=== PATIENT | male | born 1935 | race Caucasian/White ===

== ENCOUNTER 2016-11-13 05:47 | Observation (INO) ==
[2016-11-13] MEDS ORDERED: Aspirin 81 MG TAB.CHEW PO ONE (06:02)
[2016-11-13] MEDS ORDERED: Nitroglycerin 0.4 MG TAB.SUBL SL ONE (06:02)
[2016-11-13 06:23] LABS: Basophils # 0.1 K/mcL (0.0-0.2); Basophils % 0.9 %; Eosinophils # 0.2 K/mcL (0.0-0.6); Eosinophils % 3.4 %; Hematocrit 48.6 % (37.5-50.1); Hemoglobin 16.3 g/dL (12.9-16.9); Immature Granulocytes % 0.4 % (0-4); Lymphocytes # 1.3 K/mcL (0.6-4.6); Lymphocytes % 19.3 %; Mean Corpuscular HGB Conc 33.5 g/dL (31.6-35.5); Mean Corpuscular Hemoglobin 30.1 pg (28.0-33.3); Mean Corpuscular Volume 89.7 fL (83.0-100.0); Monocytes # 0.7 K/mcL (0.0-1.3); Monocytes % 10.2 %; Neutrophils # 4.5 K/mcL (1.6-8.9); Platelet Count 187 K/mcL (140-400); Red Blood Count 5.42 M/mcL (4.19-5.50); Red Cell Distribution Width 12.2 % (11.5-14.5); Segmented Neutrophils % 65.8 %
[2016-11-13 06:30] LABS: INR 1.1; Prothrombin Time 11.5 Seconds (9.4-12.1)
[2016-11-13 06:33] LABS: Activated Partial Thrombo Time 31.3 Seconds (26.0-36.0)
[2016-11-13 06:40] LABS: BUN/Creatinine Ratio 15 (6-26); Blood Urea Nitrogen 17 mg/dL (8-26); Carbon Dioxide 24 mEq/L (19-29); Chloride 105 mEq/L (98-109); Glucose 117 mg/dL (70-99); Osmolality,Calculated 291 (280-300); Sodium 139 mEq/L (136-145); eGFR For African Americans > 60 (> 60); eGFR For Non-African Americans > 60 (> 60)
--- NOTE | 2016-11-13 06:46 | Emergency Department Note ---
Disposition Clinical Impression: Chest pain Qualifiers: Chest pain type: other chest pain Qualified Code(s): R07.89 - Other chest pain Disposition: Admitted As Inpatient Condition: Good Chest Pain HPI - General Chief Complaint: ED Arrhythmia/Palpitations Stated Complaint: "Poss. Heart Attack" Time Seen by Provider: 11/13/16 06:01 Source: patient Mode of arrival: private vehicle Limitations: no limitations Vital Signs Reviewed: Yes Nursing Notes Reviewed: Yes - History of Present Illness HPI Narrative: 81-year-old male history of hypertension, hyperlipidemia status post CABG in 2014 who presents to the ER with a chief complaint of chest pain. Patient reports that he started having chest pain at midnight tonight at rest. Says left-sided pain without radiation. Reported similar to previous instances. Patient denies shortness of breath, nausea, vomiting, diaphoresis. No recent illnesses. Denies a history of DVT or PE. Patient took sublingual nitroglycerin prior to arrival. He currently reports that his pain is better. Patient does follow with cardiology. No other complaints. Pt complaint: chest pain Onset (ago): hour(s) Time: 00:00 Duration: constant Onset: during rest Pain Location: left chest Severity: moderate Severity scale (1-10): 8 Quality: other Pain Radiation: none Improves with: nothing Worsens with: nothing Associated symptoms: Denies: nausea, vomiting, diaphoresis, dyspnea Treatments prior to arrival chest pain: none - Related Data On Oral Contraceptives: No Home Medications Medication Instructions Recorded Confirmed Aspirin 81 mg PO DAILY 04/29/15 11/13/16 Isosorbide MONOnitrate (24 HR) 60 mg PO DAILY 04/29/15 11/13/16 [Imdur] Ranitidine HCl [Zantac] 150 mg PO BID 04/29/15 11/13/16 Simvastatin [Zocor] 20 mg PO HS 04/29/15 11/13/16 Amlodipine [Norvasc] 5 mg PO DAILY 11/13/16 11/13/16 CloNIDine HCl 0.1 mg PO DAILY 11/13/16 11/13/16 Lisinopril [Zestril] 20 mg PO DAILY 11/13/16 11/13/16 Metoprolol XL (24 HR) Succ [Toprol 12.5 mg PO DAILY 11/13/16 11/13/16 XL] Mirtazapine 7.5 mg PO HS 11/13/16 11/13/16 Nitroglycerin [Nitrostat] 0.4 mg SL AD PRN 11/13/16 11/13/16 Sertraline [Zoloft] 50 mg PO DAILY 11/13/16 11/13/16 Allergies Allergy/AdvReac Type Severity Reaction Status Date / Time Penicillins [PCN] AdvReac See Verified 11/13/16 05:53 Comments All systems ED: reviewed and negative except as stated. Constitutional: Denies: fever Cardiovascular: Reports: chest pain. Denies: palpitations, dyspnea on exertion Respiratory: Denies: cough, dyspnea, wheezes Gastrointestinal: Denies: abdominal pain, nausea, vomiting, diarrhea Musculoskeletal: Denies: back pain, neck pain Chest Pain PMH - Past Medical History Medical history: Reports: hyperlipidemia, hypertension, myocardial infarction Surgical history: Reports: other Psychiatric history: Reports: no psych history - Social History Smoking Status: Never smoker Alcohol use: Reports: none Drug use: Reports: none Physical Exam - General Limitations: no limitations General appearance: alert, in no apparent distress - Head Head exam: atraumatic, normocephalic, normal inspection - Eye Eye exam: Present: normal appearance, EOMI - ENT ENT exam: normal exam - Neck Neck exam: Present: normal inspection - Chest Chest inspection: Present: normal inspection, symmetric chest wall rise - Respiratory Respiratory exam: Present: normal lung sounds bilaterally - Cardiovascular Cardiovascular exam: Present: regular rate, normal rhythm, normal heart sounds - Abdominal Exam Abdominal exam: Present: soft, Non-Tender. Absent: tenderness - Extremities Exam Extremities exam: Present: normal inspection, full ROM - Expanded Upper Extremity Exam Shoulder exam: Present: normal inspection, full ROM Arm exam: Present: normal inspection, full ROM Elbow exam: Present: normal inspection, full ROM Forearm/Wrist exam: Present: normal inspection, full ROM Hand exam: Present: normal inspection, full ROM - Expanded Lower Extremity Exam Hip/Pelvis exam: Present: normal inspection, full ROM Upper leg exam: Present: normal inspection, full ROM Knee exam: Present: normal inspection, full ROM Lower leg exam: Present: normal inspection, full ROM Ankle exam: Present: normal inspection, full ROM Foot/toe exam: Present: normal inspection, full ROM - Neurological Exam Neurological exam: Present: alert - Psychiatric Psychiatric exam: Present: normal affect, normal mood - Skin Skin exam: Present: warm, dry, intact, normal color Course Course Narrative: Patient seen and examined. Vital signs reviewed. He reports his chest pain has improved. Patient received sublingual nitroglycerin prior to arrival. Patient provided aspirin here. We will check an EKG, chest x-ray as well as labs including troponin. Vital Signs Temperature 97.6 F 11/13/16 05:48 Pulse Rate 70 11/13/16 05:48 Respiratory Rate 20 11/13/16 05:48 Blood Pressure 161/83 11/13/16 05:48 O2 Sat by Pulse Oximetry 97 11/13/16 05:48 Temperature 98.0 F 11/14/16 04:10 Pulse Rate 81 11/14/16 04:10 Respiratory Rate 16 11/14/16 04:10 Blood Pressure 127/80 11/14/16 04:10 O2 Sat by Pulse Oximetry 96 11/14/16 04:10 Oxygen Delivery Oxygen Delivery Room Air Chest Pain - MDM Narrative Medical decision making narrative: 81-year-old male presents to the ER due to chest pain. Started around midnight. History of multiple comorbidities. Last stress test was in 2015 which did demonstrate a small sized, mild to moderate intensity reversible perfusion defect in the basal-mid inferior wall consistent with myocardial ischemia. Patient's pain improved after nitroglycerin. EKG shows no ischemic findings. Chest x-ray unremarkable. Patient admitted to the hospital in stable condition. - Lab Data Lab results reviewed: Yes I reviewed the patient's lab results. Result diagrams: 11/14/16 01:02 11/14/16 01:02 Lab Results 11/13/16 11/13/16 11/13/16 Range/Units 06:14 06:14 06:14 WBC 6.8 (4.3-11.1) K/mcL RBC 5.42 (4.19-5.50) M/mcL Hgb 16.3 (12.9-16.9) g/dL Hct 48.6 (37.5-50.1) % MCV 89.7 (83.0-100.0) fL MCH 30.1 (28.0-33.3) pg MCHC 33.5 (31.6-35.5) g/dL RDW 12.2 (11.5-14.5) % Plt Count 187 (140-400) K/mcL MPV 11.0 (9.4-12.4) fL Immature Gran % 0.4 (0-4) % Seg Neutrophils % 65.8 % Lymphocytes % 19.3 % Monocytes % 10.2 % Eosinophils % 3.4 % Basophils % 0.9 % Neutrophils # 4.5 (1.6-8.9) K/mcL Lymphocytes # 1.3 (0.6-4.6) K/mcL Monocytes # 0.7 (0.0-1.3) K/mcL Eosinophils # 0.2 (0.0-0.6) K/mcL Basophils # 0.1 (0.0-0.2) K/mcL PT 11.5 (9.4-12.1) Seconds INR 1.1 APTT 31.3 (26.0-36.0) Seconds Sodium (136-145) mEq/L Potassium (3.5-4.5) mEq/L Chloride (98-109) mEq/L Carbon Dioxide (19-29) mEq/L BUN (8-26) mg/dL Creatinine (0.72-1.25) mg/dL Est GFR ( Amer) (> 60) Est GFR (Non-Af Amer) (> 60) BUN/Creatinine Ratio (6-26) Glucose (70-99) mg/dL Calculated Osmolality (280-300) Calcium (8.6-10.8) mg/dL Troponin I (0-0.03) ng/mL B-Natriuretic Peptide 76 (0-100) pg/mL 11/13/16 11/13/16 11/13/16 Range/Units 06:14 06:14 12:30 WBC (4.3-11.1) K/mcL RBC (4.19-5.50) M/mcL Hgb (12.9-16.9) g/dL Hct (37.5-50.1) % MCV (83.0-100.0) fL MCH (28.0-33.3) pg MCHC (31.6-35.5) g/dL RDW (11.5-14.5) % Plt Count (140-400) K/mcL MPV (9.4-12.4) fL Immature Gran % (0-4) % Seg Neutrophils % % Lymphocytes % % Monocytes % % Eosinophils % % Basophils % % Neutrophils # (1.6-8.9) K/mcL Lymphocytes # (0.6-4.6) K/mcL Monocytes # (0.0-1.3) K/mcL Eosinophils # (0.0-0.6) K/mcL Basophils # (0.0-0.2) K/mcL PT (9.4-12.1) Seconds INR APTT (26.0-36.0) Seconds Sodium 139 (136-145) mEq/L Potassium 4.0 (3.5-4.5) mEq/L Chloride 105 (98-109) mEq/L Carbon Dioxide 24 (19-29) mEq/L BUN 17 (8-26) mg/dL Creatinine 1.12 (0.72-1.25) mg/dL Est GFR ( Amer) > 60 (> 60) Est GFR (Non-Af Amer) > 60 (> 60) BUN/Creatinine Ratio 15 (6-26) Glucose 117 H (70-99) mg/dL Calculated Osmolality 291 (280-300) Calcium 9.0 (8.6-10.8) mg/dL Troponin I 0.01 0.00 (0-0.03) ng/mL B-Natriuretic Peptide (0-100) pg/mL - Radiology Data Radiology results reviewed: Yes I reviewed the patient's radiology results. Chest X-Ray 11/13/16 06:02 IMPRESSION: Negative portable chest. D/ / Zachary Morley MD / Zachary Morley MD Interpreting Provider: Zachary Morley MD - EKG Data EKG attestation: Yes I reviewed and interpreted this EKG. EKG results narrative: EKG demonstrates normal sinus rhythm with a rate of 70 bpm. Normal axis. SC interval 168 QRS duration [address] elevations or depressions. No acute ischemic findings. Heart Score - Score History: Moderately Suspicious EKG: Normal Age: Greater than 65 Risk Factors: Equal/Greater than 3 risk factor or history of atherosclerotic disease Troponin: Less than normal limit HEART Score Total: 5 S.B.A.R. - S.B.A.R. Situation: Demographics, MOA Background: Presenting Complaint, Relevant PMH, Meds, & Allergies Assessment: Vital Signs, Course and respsone to treatment, Exam Concerns, Patient/Family Expectation, Pertinant Lab Results, Outstanding Labs Recommendation: Barrier(s) to disposition, Recommendation based on pending studies, treatments, or consults Leticia Report Given to: Dr. Javier Kelly Repor Time: 07:32 Attestation Statement - Attestation Attestation: I personally interviewed and examined this patient and my medical decision- making was reviewed with the ED Resident Physician, Dr. Pineda. I agree with the documented findings, disposition and treatment plan as described in the documentation. PT with hx CAD, here with CP. Agree with physical exam findings, and plan for admission.
[2016-11-13] MEDS ORDERED: Ondansetron 4 MG/2 ML VIAL IVP PRN (10:57)
[2016-11-13] MEDS ORDERED: Naloxone 0.4 MG/ML INJ IVP PRN (10:57)
[2016-11-13] MEDS ORDERED: Nitroglycerin 0.4 MG TAB.SUBL SL PRN (10:59)
--- NOTE | 2016-11-13 11:07 | Internal Med History&Physical ---
Date of Encounter: 11/13/16 Time of Encounter: 11:01 Assessment and Plan (1) Chest pain Current visit: Yes Status: Acute Typical chest pain in setting of patient with known CAD and abnormal stress test. Patient now chest pain free. - Cardiology consulted for assistance - Trend troponin - Monitor on telemetry - ASA - Keep patient chest pain free with nitro and morphine PRN - Echo Qualifiers: Chest pain type: other chest pain Qualified Code(s): R07.89 - Other chest pain; R07.8 - Other chest pain (2) Hypertension Current visit: Yes Status: Chronic BP stable in ER - Continue home medications Qualifiers: Hypertension type: essential hypertension Qualified Code(s): I10 - Essential (primary) hypertension (3) Syncope Current visit: Yes Status: Acute Sounds orthostatic based on patient report, and is longstanding issue. Will check orthostatic vitals once patient on medicine floor. - Monitoring on telemetry Qualifiers: Syncope type: unspecified Qualified Code(s): R55 - Syncope and collapse Internal Medicine - H&P: HPI Chief complaint: Chest pain Admitted From: Emergency Dept Plans for Post Hospital Care: Home History of present illness: Mr. Mcmullen is a 81 year old male with history of CAD s/p CABG in 2012, HTN, HLD who presented to the ER this morning with complaint of left sided anterior chest pain which developed around 2330 yesterday evening while he was watching television. He states the pain was nonradiating, pressure-like, 10/10 at worst. He has had similar pain in the past which typically resolves after taking 1-2 SL nitro. Last night, however, he took 3 SL nitro and the pain persisted so he presented to the ER for further evaluation. In the ER he was given ASA and his pain did eventually resolve without further intervention. The pain lasted ~60 minutes total. He had no associated symptoms with the pain. His family states that he seems to still have intermittent chest pain while in the ER. When I ask him about this he says he is now completely pain free. He has not had any recent illnesses, fever or chills. He has not had lower extremity edema. He was admitted one year ago and underwent stress test which showed small area of reversible ischemia and that time he elected for medical management and he did not have LHC. Pain was reasonably controlled with occasional nitro until last night. He did have an episode of syncope while sitting at latter-day 11/11 - he states this happens occasionally secondary to hypotension, and he did not have any chest pain associated with the episode - he felt lightheaded and his vision got dark and then he lost consciousness but did not fall. Past Med Surg Social Fam HX - Past Medical History Medical history: coronary artery disease (s/p CABG 2012), hyperlipidemia, hypertension, myocardial infarction Psychiatric history: no psych history - Past Surgical History Surgical History: other - Social History Smoking Status: Never smoker Smokeless Tobacco Status: No Alcohol use: none Drug use: none Additional social history: Lives at home with family - Family History Mother Living Status: Hx Family Cardiac Disorders: No Hx Family Respiratory Disorders: No Hx Family Cancer: No Hx Family GI Disorders: No Hx Family Endocrine Disorder: No Hx Family Neuromuscular Disorders: No Hx Family Neurologic Disorders: No Hx Family HEENT Disorders: No Hx Family Autoimmune Disorders: No Internal Medicine - H&P: Meds Aspirin 81 mg PO DAILY 04/29/15 [History] Isosorbide MONOnitrate (24 HR) [Imdur] 60 mg PO DAILY 04/29/15 [History] Ranitidine HCl [Zantac] 150 mg PO BID 04/29/15 [History] Simvastatin [Zocor] 20 mg PO HS 04/29/15 [History] Amlodipine [Norvasc] 5 mg PO DAILY 11/13/16 [History] CloNIDine HCl 0.1 mg PO DAILY 11/13/16 [History] Lisinopril [Zestril] 20 mg PO DAILY 11/13/16 [History] Metoprolol XL (24 HR) Succ [Toprol XL] 12.5 mg PO DAILY 11/13/16 [History] Mirtazapine 7.5 mg PO HS 11/13/16 [History] Nitroglycerin [Nitrostat] 0.4 mg SL AD PRN 11/13/16 [History] Sertraline [Zoloft] 50 mg PO DAILY 11/13/16 [History] Allergies Penicillins [PCN] Adverse Reaction (Verified 11/13/16 05:53) See Comments All Systems PM: A 10-system review of systems was performed and is negative for pertinent findings except as documented above in the HPI. - Constitutional Vitals: Temp Pulse Resp BP Pulse Ox 97.6 F 64 11 160/83 94 L 11/13/16 05:48 11/13/16 10:45 11/13/16 10:45 11/13/16 10:45 11/13/16 10:45 General appearance: Present: A&O X 3 Exam: Patient in no acute distress, resting comfortably in bed - Head Head exam: Present: atraumatic - Eye Eye exam: Present: EOMI, sclera anicteric - ENT ENT exam: Present: mucous membranes moist - Neck Neck exam general surgery: Present: supple - Respiratory Respiratory exam: Present: CTAB - Cardiovascular Cardiovascular exam: Present: distant heart sounds, RRR. Absent: diastolic murmur, systolic murmur - GI/Abdominal GI/Abdominal exam: Present: normal bowel sounds, soft. Absent: distended, tenderness - Extremities Exam Extremities exam: Absent: pedal edema - Neurological Exam Neurological exam: Present: no focal deficits - Skin Skin exam: Absent: rash Internal Med - H&P Results - Labs CBC & Chem 7: 11/13/16 06:14 11/13/16 06:14 Labs: Short CBC 11/13/16 Range/Units 06:14 WBC 6.8 (4.3-11.1) K/mcL Hgb 16.3 (12.9-16.9) g/dL Hct 48.6 (37.5-50.1) % Plt Count 187 (140-400) K/mcL Neutrophils # 4.5 (1.6-8.9) K/mcL BMP 11/13/16 06:14 Sodium 139 Potassium 4.0 Chloride 105 Carbon Dioxide 24 BUN 17 Creatinine 1.12 Glucose 117 H Calcium 9.0 Cardiac Enzymes 11/13/16 Range/Units 06:14 Troponin I 0.01 (0-0.03) ng/mL - Impressions ITS Impressions Chest X-Ray 11/13/16 06:02 IMPRESSION: Negative portable chest. D/ / Zachary Morley MD / Zachary Morley MD Interpreting Provider: Zachary Morley MD
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
[2016-11-13] MEDS ORDERED: cloNIDine HCl 0.1 MG TABLET PO ONE (15:34)
[2016-11-13] MEDS ORDERED: Metoprolol XL (24 HR) Succ 25 MG TAB.ER.24H PO SCH (15:45)
--- NOTE | 2016-11-13 15:49 | Electrocardiograph Report ---
[address] [address] Test Date: 2016-11-13 Pat Name: Inocencio Mcmullen Department: 102 Room: 3B44 Gender: M Cane Weigher: Christine : 1935 Requested By: Kayla Herrera Order Number: [id number] Reading MD: Maribel Lafleur Measurements Intervals [place] Rate: 70 P: 38 [place]: 168 QRS: 50 QRSD: 83 T: 75 QT: 409 QTc: 431 Interpretive Statements SINUS RHYTHM Electronically Signed On 11-13-2016 15:47:52 EDT by Maribel Lafleur
[2016-11-13] MEDS: Lisinopril 20 MG TABLET PO SCH (16:09)
[2016-11-13] MEDS: Mirtazapine 15 MG TABLET PO SCH (20:23)
[2016-11-13] MEDS: Famotidine 20 MG TABLET PO SCH (20:25)
[2016-11-14 01:35] LABS: Basophils # 0.1 K/mcL (0.0-0.2); Basophils % 0.9 %; Eosinophils # 0.2 K/mcL (0.0-0.6); Eosinophils % 3.1 %; Hematocrit 46.1 % (37.5-50.1); Hemoglobin 15.6 g/dL (12.9-16.9); Immature Granulocytes % 0.2 % (0-4); Immature Platelets 7.7 % (1.1-6.1); Lymphocytes # 1.2 K/mcL (0.6-4.6); Lymphocytes % 18.5 %; Mean Corpuscular HGB Conc 33.8 g/dL (31.6-35.5); Mean Corpuscular Hemoglobin 30.1 pg (28.0-33.3); Monocytes # 0.7 K/mcL (0.0-1.3); Monocytes % 11.1 %; Neutrophils # 4.2 K/mcL (1.6-8.9); Platelet Count 176 K/mcL (140-400); Red Blood Count 5.18 M/mcL (4.19-5.50); Red Cell Distribution Width 12.1 % (11.5-14.5); Segmented Neutrophils % 66.2 %
[2016-11-14 02:06] LABS: BUN/Creatinine Ratio 16 (6-26); Blood Urea Nitrogen 16 mg/dL (8-26); Calcium 9.5 mg/dL (8.6-10.8); Carbon Dioxide 22 mEq/L (19-29); Chloride 107 mEq/L (98-109); Chol/HDL Ratio 4.1 (0-4.9); Cholesterol 142 mg/dL (< 200); Glucose 112 mg/dL (70-99); HDL Cholesterol 35 mg/dL (40-59); LDL Cholesterol,Calculated 85 mg/dL (0-99); Osmolality,Calculated 290 (280-300); Potassium 3.9 mEq/L (3.5-4.5); Sodium 139 mEq/L (136-145); Triglycerides 111 mg/dL (< 150); eGFR For African Americans > 60 (> 60); eGFR For Non-African Americans > 60 (> 60)
[2016-11-14] MEDS ORDERED: amLODIPine 5 MG TABLET PO SCH (09:00)
[2016-11-14] MEDS ORDERED: 0.9 % Sodium Chloride 1,000 ML ONE (09:37)
[2016-11-14] MEDS ORDERED: Heparin 1,000 UNITS/500 mL NS 500 ML ONE (09:38)
[2016-11-14] MEDS ORDERED: *HR* Heparin 10,000 UNIT/10 ML VIAL ONE (09:38)
[2016-11-14] MEDS ORDERED: Nitroglycerin 1,000 MCG/10 ML VIAL IV ONE (09:39)
[2016-11-14] MEDS ORDERED: *HR* FentaNYL (PF) 100 MCG/2 ML VIAL ONE (09:39)
[2016-11-14] MEDS ORDERED: *HR* Midazolam HCl 2 MG/2 ML VIAL ONE (09:39)
[2016-11-14] MEDS: Metoprolol XL (24 HR) Succ 25 MG TAB.ER.24H PO SCH (09:48)
[2016-11-14] MEDS: Famotidine 20 MG TABLET PO SCH ×2 (09:49→21:28)
[2016-11-14] MEDS: cloNIDine HCl 0.1 MG TABLET PO SCH (09:49)
[2016-11-14] MEDS: Lisinopril 20 MG TABLET PO SCH ×2 (09:49→16:18)
[2016-11-14] MEDS: Isosorbide MONOnitrate (24 HR) 60 MG TAB.ER.24H PO SCH (09:49)
[2016-11-14] MEDS: Aspirin 81 MG TAB.CHEW PO SCH (09:49)
--- NOTE | 2016-11-14 10:30 | Pre-Sedation Evaluation ---
Pre-sedation evaluation - Pre-sedation checklist Date of procedure: 11/14/16 Procedure: left heart cath Recent Vitals: Last Vital Signs Temp 97.9 F 11/14/16 06:59 Pulse 65 11/14/16 06:59 Resp 16 11/14/16 06:59 BP 147/82 11/14/16 06:59 Pulse Ox 95 11/14/16 06:59 H&P (including ROS) documented in medical record: Yes Previous reaction to sedatives/anesthetics: No Dietary Status: NPO after Midnight Dentition: No loose teeth or bridges ASA Classification *see protocol: CLASS II-Mild systemic disease Plan of Care: Pt appropriate candidate for procedure/moderate/conscious sedation , Risks/benefits of procedure/sedation discussed w/ patient/family
[2016-11-14] MEDS ORDERED: Tirofiban 5 MG/100ML 5 MG/100 ML BAG IV ONE (11:31)
[2016-11-14] MEDS ORDERED: *HR* Ticagrelor 90 MG TABLET ONE (11:38)
--- NOTE | 2016-11-14 13:36 | ECHO - Doppler Report ---
Echocardiogram Name: Inocencio Mcmullen Date of Study: 11/13/2016 Date: 1935 Ht: 67.0 in Medical Record#: [id number] Age: 81 Wt: 178.0 lb Gender: Male BSA: 1.92 Order #: [id number] Location: [facility] Room #: 3B44 Reading Physician: Osmin Lincoln DO, SAMMIE, JULISSA [place] [employer] Worker: Chula Hogan Ordering Physician: Renata Alamo MD Primary Physician: Rebekah Ogden CNP Indications: Chest pain Impressions: LVEF 60%. Normal LV chamber size, wall thickness and function. Mild left ventricular diastolic dysfunction. Atypical septal motion consistent with post-operative status. Normal right ventricular structure and function. No evidence of pulmonary hypertension. No significant valvular dysfunction. Left Ventricular Wall Motion: Rest Echo Findings All wall segments showed normal motion. Findings: Study Quality * Technically sub-optimal due to poor echocardiographic windows. ECG Findings * Normal sinus rhythm. Left Ventricle * LVEF 60%. * Normal LV chamber size, wall thickness and function. * Mild left ventricular diastolic dysfunction. * Atypical septal motion consistent with post-operative status. Right Ventricle * Normal right ventricular structure and function. Left Atrium * Mild to moderately dilated left atrium. Right Atrium * Normal right atrial size. Interatrial Septum * Interatrial septum not well evaluated. Aortic Valve * Aortic valve not well visualized. * No aortic regurgitation. * No aortic stenosis. Mitral Valve * Normal mitral valve structure and function. * No mitral regurgitation. * No mitral stenosis. Tricuspid Valve * Normal tricuspid valve structure and function. * Trace tricuspid regurgitation. * No evidence of pulmonary hypertension. Pulmonic Valve * Pulmonic valve is not well visualized. * No pulmonic regurgitation. Aorta * Normally sized aortic root. Pericardium * The pericardium appears normal. IVC * The IVC is not well evaluated. Pulmonary Artery * Pulmonary artery not well visualized. 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 Measurements: BP: 156/ 79 2D Normal Values RVIDd: 3.40 cm <2.7 cm IVSd: 1.00 cm 0.6 - 1.0 cm LVIDd: 4.20 cm 3.7 - 5.6 cm LVPWd: 1.00 cm 0.6 - 1.1 cm LVIDs: 3.00 cm 1.5 - 3.6 cm AO: 2.90 cm < 4.0 cm LA: 4.30 cm 2.0 - 4.0cm %FS: 28.60 cm >25 % LA volume: 64 Mitral Valve Peak E:.74 m/sec Peak A:.99 m/sec E/A Ratio:0.7 Peak E' Lat Mike:7.99 cm/s Peak E' Med Mike:5.07 cm/s E/E' Lat Ratio:9.2 E/E' Med Ratio:14.5 Tricuspid Valve TV Regurg Peak Grad: 25.00mmHg TV Regurg Peak Mike: 2.50m/sec Updated by Osmin Lincoln DO, FACTariq, PADMINI, JULISSA on 11/14/2016 1:29:24 PM electronically signed on 11/14/2016 1:29:50 PM with status of Final Wall Motion Feldman: 1=Normal, 2=Hypokinesis, 3=Akinesis, 4=Dyskinesis, 5=Aneurysmal, 6=Hyperkinetic, X=Not Visualized (Blank)=Missing
--- NOTE | 2016-11-14 13:51 | Internal Med Progress Note ---
Date of Encounter: 11/14/16 Time of Encounter: 10:30 - Assessment and plan (1) Unstable angina Current Visit: Yes Status: Acute Assessment and plan: Patient has denied chest pain or shortness of breath since admission. Seen and evaluated by cardiology who have chosen to proceed with a left heart catheter later today. Echocardiogram unremarkable with preserved ejection fraction. Echocardiogram impressions: LVEF 60%. Normal LV chamber size, wall thickness and function. Mild left ventricular diastolic dysfunction. Atypical septal motion consistent with postoperative status. Normal rectal ventricular structure and function. No evidence of pulmonary hypertension. No significant valvular dysfunction. (2) Chest pain Current Visit: No Status: Resolved (3) CAD (coronary artery disease) Current Visit: Yes Status: Chronic Qualifiers: Coronary Disease-Associated Artery/Lesion type: bypass graft [place] vs. transplanted heart: [place] heart Associated angina: with unstable angina Qualified Code(s): I25.700 - Atherosclerosis of coronary artery bypass graft(s) , unspecified, with unstable angina pectoris (4) Hypertension Current Visit: Yes Status: Chronic Assessment and plan: Controlled, home medications of amlodipine 5 mg, metoprolol XL 12.5 mg daily, clonidine 0.1 mg daily, lisinopril 20 mg daily, and Imdur 60 mg daily have been continued Qualifiers: Hypertension type: essential hypertension Qualified Code(s): I10 - Essential (primary) hypertension (5) Syncope Current Visit: Yes Status: Chronic Assessment and plan: Patient saying this is a chronic issue for him. He is currently asymptomatic and denies dizziness or lightheadedness with position changes. We will check orthostatic vital signs. Qualifiers: Syncope type: unspecified Qualified Code(s): R55 - Syncope and collapse - Subjective Interval history: Patient seen and examined. On examination, patient sitting upright in bed conversing with his family. He denies pain or shortness of breath at this time. He denies questions or concerns regarding his upcoming heart catheter. - Constitutional Vitals: Temp Pulse Resp BP Pulse Ox 97.9 F 65 16 147/82 95 11/14/16 06:59 11/14/16 06:59 11/14/16 06:59 11/14/16 06:59 11/14/16 06:59 General appearance: Present: A&O X 3, pleasant, no acute distress, answers questions appropriately - Head Head exam: Present: atraumatic, normocephalic - Eye Eye exam: Present: PERRL, conjuntiva pink, sclera anicteric Pupils: Present: PERRL - Neck Neck exam general surgery: Present: supple, trachea midline. Absent: lymphadenopathy - Respiratory Respiratory exam: Present: CTAB. Absent: accessory muscle use, rales, respiratory distress, rhonchi, wheezes - Cardiovascular Cardiovascular exam: Present: RRR, +S1, +S2. Absent: diastolic murmur, gallop, rubs, systolic murmur - GI/Abdominal GI/Abdominal exam: Present: normal bowel sounds, soft, no peritoneal signs. Absent: distended, tenderness - Extremities Exam Extremities exam: Present: warm, radial pulses palpable and symetrical. Absent : calf tenderness, cyanotic, pedal edema - Neurological Exam Neurological exam: Present: alert, CN II-XII intact, oriented X3, no focal deficits, strengths equal and symetr throughout. Absent: pronater drift, facial droop, speech deficit - Skin Skin exam: Present: dry, intact, normal color, warm Internal Medicine: Result - Labs CBC & Chem 7: 11/14/16 01:02 11/14/16 01:02 Labs: Short CBC 11/14/16 Range/Units 01:02 WBC 6.4 (4.3-11.1) K/mcL Hgb 15.6 (12.9-16.9) g/dL Hct 46.1 (37.5-50.1) % Plt Count 176 (140-400) K/mcL Neutrophils # 4.2 (1.6-8.9) K/mcL BMP 11/14/16 01:02 Sodium 139 Potassium 3.9 Chloride 107 Carbon Dioxide 22 BUN 16 Creatinine 1.00 Glucose 112 H Calcium 9.5 Cardiac Enzymes 11/13/16 11/14/16 Range/Units 18:16 01:02 Troponin I 0.01 0.00 (0-0.03) ng/mL - ABG Interpretation ABG results: PT/INR, D-dimer PT 11.5 Seconds (9.4-12.1) 11/13/16 06:14 Consult Discharge Plan - Plan Referrals: Alin,Rebekah Ward CNP [Primary Care Provider] - 11/20/16 4:15 pm
[2016-11-14] MEDS ORDERED: *HR* Morphine 2 MG/ML SYRINGE ONE (13:52)
[2016-11-14] MEDS: *HR* Morphine 2 MG/ML SYRINGE IVP PRN ×2 (13:55→21:36)
--- NOTE | 2016-11-14 15:44 | Invasive Diagnostic Lab Proc ---
Name: Inocencio Mcmullen Date of Study: 11/14/2016 Date: 1935 Ht: 66.9in Medical Record#: [id number] Age: 81 Wt: 176.37lb Gender: Male BSA: 1.91 Order #: [id number] BMI: 27.71 Physicians Procedure Physician: Anjel Flores MD, [facility] Referring MD: Referring MD: Staff Name Position Time In FelixNajma RN Appointment Clerk 10:31 AM Vicenta Ellis RT (R) Monitor 10:31 AM Emely Daniel RT (R) Scrub 10:31 AM Indications Indication Unstable Angina Procedures Performed Procedure L HRT ART/GRFT ANGIO PRQ CARD BM STENT W/ANGIO 1 VSL Pre-Procedure Checklist Informed consent is complete signed and on chart. H\\T\\P is on chart. ID band is on and ID verified with patient. Patient NPO for procedure The procedure was described for the patient and questions were answered. Blood Pressure: 147/82 ECG is on chart. Plan of Care Patient will tolerate the procedure without complications. Adequate level of comfort will be maintained. Hemodynamics will remain stable Patient will recover from procedure without complications. Respiratory function will be maintained. Cardiac rhythm will remain stable. Patient temperature will be maintained. Patient and/or family have verbalized understanding of the procedure. Patient Education Chief Complaint/Reason for Test: Cardiac Cath Developmental Category: Geriatric (65+ years) Developmentally Appropriate for Age: Yes Learning Barriers: None Education Needs: Procedure Education Method: Verbal Information Taught: Cardiac Cath Educational Evaluation: Able to repeat information Intravenous Access Time IV Size Location DC'd Fluid/Drip Rate Units RN 10:37 AM 20g 1 1/" Patent On Arrival Rt Arm 0.9NaCl 25 ml/hr Allergies Penicillin PCN Penicillins Vital Signs Time BP (mmHg) HR (bpm) O2 Sat. RR (bpm) LOC 10:37 AM 147 / 82 65 96 % 16 5 = Fully awake and oriented or at pre-proc level 10:32 AM / % 4 = Oriented but drowsy 10:32 AM / % 4 = Oriented but drowsy 11:20 AM / % 4 = Oriented but drowsy 10:32 AM 185 / 97 64 100 % 13 10:36 AM 181 / 91 65 99 % 13 10:41 AM 142 / 75 63 95 % 25 10:46 AM 154 / 91 71 97 % 16 10:51 AM 164 / 81 72 97 % 16 10:56 AM 154 / 81 75 94 % 16 11:01 AM 153 / 68 69 96 % 17 11:06 AM 137 / 74 70 97 % 15 11:11 AM 174 / 81 77 98 % 15 11:16 AM 174 / 88 72 97 % 16 11:22 AM 155 / 85 73 97 % 15 11:26 AM 169 / 90 75 97 % 13 11:31 AM 159 / 85 75 97 % 22 11:36 AM 152 / 81 69 95 % 24 11:41 AM 126 / 70 68 94 % 15 11:46 AM 138 / 74 64 97 % 12 12:10 PM 120 / 68 65 93 % 10 5 = Fully awake and oriented or at pre-proc level 12:35 PM 118 / 67 63 94 % 18 5 = Fully awake and oriented or at pre-proc level 12:45 PM 123 / 68 59 93 % 16 4 = Oriented but drowsy 01:00 PM 126 / 72 64 93 % 16 5 = Fully awake and oriented or at pre-proc level 01:14 PM 127 / 76 63 94 % 16 4 = Oriented but drowsy 01:32 PM 119 / 71 61 96 % 15 4 = Oriented but drowsy 01:45 PM 125 / 74 63 95 % 18 5 = Fully awake and oriented or at pre-proc level 02:24 PM 125 / 85 65 98 % 18 5 = Fully awake and oriented or at pre-proc level 02:35 PM 140 / 85 64 98 % 18 5 = Fully awake and oriented or at pre-proc level 02:50 PM 131 / 87 65 97 % 18 5 = Fully awake and oriented or at pre-proc level Procedural Medications Time Medication Dose Units Method Given By 10:31 AM Versed 2 mg Intravenous Najma Washington RN 10:31 AM Fentanyl 50 mcg Intravenous Najma Washington RN 10:32 AM Oxygen 2 L/min nasal cannula Vicenta Ellis RT (R) 10:42 AM Lidocaine 2% 20 ml Subcutaneous Anjel Flores MD, FACC 11:03 AM Heparin 4000 units Intravenous Najma Washington RN 11:31 AM Aggrastat Bolus: 42 ml Intravenous Najma [place] RN 11:33 AM Aggrastat 5mg/100ml 15 ml Intravenous Najma Washington RN 11:37 AM Nitroglycerin 200 mcg Intracoronary Anjel Flores MD 11:56 AM Brilinta 180 mg Orally Najma Washington RN ASA Classification: CLASS II- Mild systemic disease (i.e. well-controlled diabetes, hypertension, asthma, cigarette smoking) Amaya Score Preprocedure Postprocedure Activity 2- Moves 4 extremities sustained head lift Activity 2- Moves 4 extremities sustained head lift Circulation 2- SBP +/= 20 points of pre-anesthetic level Circulation 2- SBP +/= 20 points of pre-anesthetic level Consciousness 2- Awake and alert oriented x 3 Consciousness 2- Awake and alert oriented x 3 O2 Saturation 2- Able to maintain O2 satruation of 92% on room air O2 Saturation 2- Able to maintain O2 satruation of 92% on room air Respiratory 2- Able to deep breathe and cough well Respiratory 2- Able to deep breathe and cough well Total Score 10 Total Score 10 Contrast Agent: Isovue Diagnostic Contrast: 146 ml Total Contrast: 146 ml Fluoro Dose: 1791 mGy Activated Clotting Time Time Seconds to Clot 11:35 AM 304 01:08 PM 197 01:44 PM 166 Procedure Log Time Note Enter By 10:30 AM CathStat 10:30 AM Vitals capture started with the following parameters, Patient=Adult, Interval=5 min, Initial Nzwzsgiw=276 mmHg, Deflation Rate=5 mmHg, Cuff placed on Left Arm 10:30 AM Vitals capture started with the following parameters, Patient=Adult, Interval=5 min, Initial Altfqskj=602 mmHg, Deflation Rate=5 mmHg, Cuff placed on Left Arm 10:30 AM Pt arrived to [place] lab technician 2 at 10:30 [email or web address] 10:31 AM Najma Washington RN Position: Appointment Clerk Time in: 10:31 [email or web address] 10:31 AM Vicenta Ellis RT (R) Position: Monitor Time in: 10:31 [email or web address] 10:31 AM Emely Daniel RT (R) Position: Scrub Time in: 10:31 [email or web address] 10:31 AM Patient charges- Angio tray pack, Navilyst 3mm J, Pulse Oximetry and ACIST tubing and transducer [email or web address] 10:31 AM Case Delayed No [email or web address] 10:31 AM Hair removed from procedure site in holding area using clippers. Bilateral groin prepped with Chloraprep by Najma Washington RN, safety strap applied then patient was draped. Skin intact. [email or web address] 10:31 AM Physician arrived 10:31 [email or web address] 10:31 AM ASA Class CLASS II- Mild systemic disease (i.e. well-controlled diabetes, hypertension, asthma, cigarette smoking) [email or web address] 10:31 AM Meet and obie completed [email or web address] 10:31 AM Sign in performed according to hospital policy. [email or web address] 10:31 AM Procedure start 10:31 [email or web address] 10:31 AM Time: 10:31 Versed 2 mg Intravenous Given by Najma Washington RN [email or web address] 10:32 AM Time: 10:31 Fentanyl 50 mcg Intravenous Given by Najma Washington RN [email or web address] 10:32 AM HR=64 bpm, WVBV=260/97 mmhg, BhH9=259.0 %, Resp=13 B/min, Comment=NSR 10:32 AM Time: 10:32 Oxygen on at 2 L/min per nasal cannula by Vicenta Ellis (R) [email or web address] 10:32 AM Time: 10:32 Patient comfortable and pain free: Yes [email or web address] 10:32 AM Time: 10:32LOC: 4 = Oriented but drowsy [email or web address] 10:36 AM HR=65 bpm, DDGX=386/91 mmhg, SpO2=99.0 %, Resp=13 B/min, Comment=NSR 10:37 AM Pressure channel 1 zeroed. 10:39 AM Recorded ECG: HR=68 Condition=Condition 1 10:41 AM HR=63 bpm, QNYZ=216/75 mmhg, SpO2=95.0 %, Resp=25 B/min, Comment=NSR 10:42 AM Time out performed according to hospital policy [email or web address] 10:42 AM Time: 10:42 20 ml Lidocaine 2% to right groin Subcutaneous Given by Anjel Flores MD, [facility] [email or web address] 10:44 AM Access obtained by percutaneous puncture. 5Fr 10cm Terumo [place] sheath placed in right Femoral artery. [id number] [email or web address] 10:44 AM 5Fr FL 4 catheter inserted over the wire [facility] [email or web address] 10:44 AM 0.035 145cm Navilyst 3mmJ wire [id number] [email or web address] 10:45 AM Recorded Pressure: Ao, HR=68, Condition=Condition 1 (Aorta) Ao 152/83/113 10:46 AM LCA angiography performed in multiple views. [email or web address] 10:46 AM HR=71 bpm, UPKP=462/91 mmhg, SpO2=97.0 %, Resp=16 B/min, Comment=NSR 10:47 AM Lesion found in LMCA. Pre Stenosis: 50 Pre MARKY Flow: 2: Partial Flow/Perfusion (> 1 but < 3) [email or web address] 10:47 AM Lesion found in Mid LAD. Pre Stenosis: 99 Pre MARKY Flow: 2: Partial Flow/Perfusion (> 1 but < 3) [email or web address] 10:47 AM Catheter removed [email or web address] 10:47 AM 5Fr FR 4 catheter inserted over the wire DNC [email or web address] 10:49 AM SVG to the 2nd Diagonal angio performed in multiple views. [email or web address] 10:49 AM Recorded Pressure: Ao, HR=75, Condition=Condition 1 (Aorta) Ao 134/78/103 10:50 AM SVG to the Ramus angio performed in multiple views. [email or web address] 10:51 AM SVG to the RPDA angio performed in multiple views. [email or web address] 10:51 AM HR=72 bpm, GVZD=315/81 mmhg, SpO2=97.0 %, Resp=16 B/min, Comment=NSR 10:51 AM RCA angiography performed in multiple views. [email or web address] 10:51 AM Recorded Pressure: Ao, HR=74, Condition=Condition 1 (Aorta) Ao 129/80/103 10:52 AM Lesion found in Mid RCA. Pre Stenosis: 99 Pre MARKY Flow: 2: Partial Flow/Perfusion (> 1 but < 3) [email or web address] 10:52 AM Coronary Dominance: right [email or web address] 10:53 AM 0.035 260cm Navilyst 3mmJ wire [id number] [email or web address] 10:53 AM Catheter removed [email or web address] 10:53 AM 5Fr IM catheter inserted over the wire [id number] [email or web address] 10:55 AM Left MARK to the LAD angio performed in multiple views. [email or web address] 10:56 AM HR=75 bpm, APFX=805/81 mmhg, SpO2=94.0 %, Resp=16 B/min, Comment=NSR 10:57 AM Recorded Pressure: Ao, HR=71, Condition=Condition 1 (Aorta) Ao 153/66/101 10:58 AM Recorded Pressure: Ao, HR=72, Condition=Condition 1 (Aorta) Ao 139/80/108 10:58 AM Catheter removed [email or web address] 10:59 AM Bolus angiogram of right Femoral complete: 4 ml/sec for a total of 7 mls [email or web address] 11:00 AM Sheath exchanged for a 6 Fr 11 cm Cordis Louann sheath [id number] [email or web address] 11:01 AM HR=69 bpm, BTRK=590/68 mmhg, SpO2=96.0 %, Resp=17 B/min, Comment=NSR 11:01 AM 5Fr Pigtail catheter inserted over the wire [facility] [email or web address] 11:01 AM Catheter selectively placed in left ventricle [email or web address] 11:01 AM Bolus angiogram of left Ventricle complete: 8 ml/sec for a total of 24 mls [email or web address] 11:02 AM Pressure channel 1 zeroed. 11:02 AM Recorded Pressure: LV, HR=69, Condition=Condition 1 (Left Ventricle) LV 140/-9/5 11:03 AM Recorded Pressure: LV, Ao, HR=81, Condition=Condition 1 (Left Ventricle) LV 151/-7/38, (Aorta) Ao 118/63/83 11:03 AM Catheter removed [email or web address] 11:03 AM Time: 11:03 Heparin 4000 units Intravenous Given by Najma Washington RN 11:03 AM Sheath exchanged for a 6 Fr 11 cm Cordis Louann sheath [id number] [email or web address] 11:04 AM 6Fr JR 4 Cordis guide catheter was used to cannulate the PCI vessel successfully. reused? No [email or web address] 11:04 AM .014 PT Graphix 182cm guide wire across target lesion- successful. reused? No [email or web address] 11:04 AM Inflation device was opened. [email or web address] 11:06 AM HR=70 bpm, KKWA=419/74 mmhg, SpO2=97.0 %, Resp=15 B/min, Comment=NSR 11:07 AM 2.0 mm x 12 mm Emerge Monorail balloon across target lesion- successful. reused? No [email or web address] 11:10 AM NIBP STAT measurement started. 11:10 AM Balloon inflated @ 8 melecio for 8 seconds [email or web address] 11:10 AM Pressure channel 1 zeroed. 11:11 AM Recorded Pressure: Ao, HR=76, Condition=Condition 1 (Aorta) Ao 53/26/37 11:11 AM HR=77 bpm, LWMI=651/81 mmhg, SpO2=98.0 %, Resp=15 B/min, Comment=NSR 11:11 AM Balloon catheter removed intact. [email or web address] 11:13 AM 2.25mm x 24mm Synergy drug-eluting stent across target lesion- successful Lot #[id number] [email or web address] 11:14 AM .014 Prowater 180cm guide wire across target lesion- successful. reused? No [email or web address] 11:14 AM Stent deployed @ 12 melecio for 12 seconds [email or web address] 11:15 AM Recorded Pressure: Ao, HR=75, Condition=Condition 1 (Aorta) Ao 61/33/45 11:15 AM Stent delivery system removed intact. [email or web address] 11:16 AM 2.75 mm x 6mm NC Emerge balloon across target lesion- successful. reused? No [email or web address] 11:16 AM HR=72 bpm, QOMZ=838/88 mmhg, SpO2=97.0 %, Resp=16 B/min, Comment=NSR 11:17 AM Balloon inflated @ 20 melecio for 14 seconds [email or web address] 11:18 AM Balloon inflated @ 20 melecio for 8 seconds [email or web address] 11:18 AM Balloon inflated @ 20 melecio for 12 seconds [email or web address] 11:19 AM Balloon catheter removed intact. [email or web address] 11:20 AM Time: 10:32LOC: 4 = Oriented but drowsy [email or web address] 11:20 AM Time: 10:32 Patient comfortable and pain free: Yes [email or web address] 11:22 AM HR=73 bpm, MWUI=700/85 mmhg, SpO2=97.0 %, Resp=15 B/min, Comment=NSR 11:23 AM 3.0mm x 16mm Synergy drug-eluting stent across target lesion- successful Lot #[id number] [email or web address] 11:23 AM Recorded Pressure: Ao, HR=79, Condition=Condition 1 (Aorta) Ao 140/73/103 11:26 AM HR=75 bpm, VQWT=438/90 mmhg, SpO2=97.0 %, Resp=13 B/min, Comment=NSR 11:27 AM Stent deployed @ 12 melecio for 24 seconds [email or web address] 11:29 AM Stent delivery system removed intact. [email or web address] 11:30 AM 3.0mm x 8mm Synergy drug-eluting stent across target lesion- successful Lot #[id number] [email or web address] 11:31 AM Time: 11:31 Aggrastat Bolus: 42 ml Intravenous Given by Najma Washington RN Ramos pump [email or web address] 11:31 AM HR=75 bpm, KAIX=286/85 mmhg, SpO2=97.0 %, Resp=22 B/min, Comment=NSR 11:33 AM Stent deployed @ 14 melecio for 17 seconds [email or web address] 11:33 AM Time: 11:33 Aggrastat 5mg/100ml 15 ml Intravenous Given by Najma Washington RN Ramos pump [email or web address] 11:34 AM Stent delivery system removed intact. [email or web address] 11:34 AM Guide wire removed intact. [email or web address] 11[facility]34 AM Recorded Pressure: Ao, HR=76, Condition=Condition 1 (Aorta) Ao 145/87/115 11:34 AM Guide wire removed intact. [email or web address] 11:35 AM At 11:35 the ACT was 304 seconds. [email or web address] 11:35 AM Time: 11:20 Patient comfortable and pain free: Yes [email or web address] 11:35 AM Time: 11:20LOC: 4 = Oriented but drowsy [email or web address] 11:36 AM HR=69 bpm, LIOZ=496/81 mmhg, SpO2=95.0 %, Resp=24 B/min, Comment=NSR 11:37 AM Time: 11:37 Nitroglycerin 200 mcg Intracoronary Given by Anjel Flores MD [facility] 11:39 AM Wire re-inserted. [email or web address] 11:41 AM 3.25 mm x 12mm NC Emerge balloon across target lesion- successful. reused? No [email or web address] 11:41 AM HR=68 bpm, TMFL=051/70 mmhg, SpO2=94.0 %, Resp=15 B/min, Comment=NSR 11:45 AM Balloon catheter removed intact. [email or web address] 11:45 AM Guide wire removed intact. [email or web address] 11:45 AM Procedure completed at 11:45 [email or web address] 11:46 AM Sign out completed: Radiation Dose 1791.30 mGy Fluoro Time: 23.3 Isovue 370 - 200ml contrast 146 ml given by Anjel Flores MD, FACC. Complications: NoneCardiac Rehab Consult needed: YesConfirmed administered medications: Yes [email or web address] 11:46 AM Sheath left in place to be pulled on floor/holding areaV+Pad [email or web address] 11:46 AM Post ECG NSR [email or web address] 11:46 AM Post Blood Pressure 126/70 [email or web address] 11:46 AM HR=64 bpm, OZQD=435/74 mmhg, SpO2=97.0 %, Resp=12 B/min, Comment=NSR 11:46 AM Information taught Cardiac Cath and PCI [email or web address] 11:46 AM Education needs Procedure, Plan of Care, and Disease Process [email or web address] 11:46 AM Learning barriers :None [email or web address] 11:46 AM Education Methods Verbal [email or web address] 11:46 AM Education evaluation Able to repeat information [email or web address] 11:47 AM Site status No bleeding/hematoma - Rt Groin as reported by Sites, Emely RT (R) at 11:47 [email or web address] 11:47 AM Opsite applied [email or web address] 11:47 AM Delay to floor Bed availability [email or web address] 11:47 AM Complications: None [email or web address] 11:47 AM Fluoro Time: 23.3 [email or web address] 11:47 AM Isovue 370 - 200ml contrast 146 ml given by Anjel Flores MD, [email or web address] 11:47 AM Radiation Dose 1791.30 mGy [email or web address] 11:56 AM Time: 11:37 Brilinta 180 mg Orally Given by Najma Washington RN [email or web address] 11:59 AM Report given to Christiano ROQUE Pt taken to Holding room Room #2. 11:59 [email or web address] 11:59 AM Family placed in consult room. [email or web address] 11:59 AM Complications: None [email or web address] 11:59 AM Patient out of room: 11:59 [email or web address] 01:12 PM family at bedside scoates 01:56 PM Patient c/o back pain 06/04, medicated per OCT orders. 02:25 PM 6F sheath pulled, manual pressure x 15 minutes. Site soft, dressed with tegderm and 2x2. Instruceted on s/s to report. Total hold time 15 miutes. 02:26 PM Site status No bleeding/hematoma - Rt Groin as reported by Yulia Marshall RN at 14:26 [email or web address] 02:27 PM Rates back discomfort 10/05. [email or web address] 02:45 PM Repor aline Henderson RN. Aware patient is eating and will transport as soon as finished. [email or web address] 02:56 PM Patient eating post cath food tray. Family at bedside. [email or web address] 03:10 PM Patient transferred back to . [email or web address] Complications Complication None None None Hemodynamics Pressures Site Systolic/A Wave Diastolic/V Wave Mean AO 152 83 113 AO 134 78 103 AO 129 80 103 AO 153 66 101 AO 139 80 108 LV 140 -9 5 LV 151 -7 38 AO 118 63 83 AO 53 26 37 AO 61 33 45 AO 140 73 103 AO 145 87 115 Post Procedure Information Blood Pressure: 126/70 mmHg Rhythm: NSR Post procedural instructions were given Closure Device Time Device Success/Fail Site Checks Time Location Status Staff Sheath In? Note 11:47 AM Rt Groin No bleeding/hematoma Sites, Emely RT (R) Yes 12:11 PM Rt Groin No bleeding/ No Hematoma Julieta Hernández RT (R) Yes 12:35 PM Rt Groin No bleeding/ No Hematoma Christiano Brown RN Yes 12:46 PM Rt Groin No bleeding/ No Hematoma FelixNajma RN Yes 01:01 PM Rt Groin No bleeding/ No Hematoma [place], Najma ROQUE Yes 01:13 PM Rt Groin No bleeding/ No Hematoma [place], Najma ROQUE Yes 01:32 PM Rt Groin No bleeding/ No Hematoma Vicenta Ellis RT (R) 01:45 PM Rt Groin No bleeding/ No Hematoma Yulia Marshall RN 02:24 PM Rt Groin No bleeding/ No Hematoma Yulia Marshall RN 02:26 PM Rt Groin No bleeding/hematoma Yulia Marshall RN 02:35 PM Rt Groin No bleeding/ No Hematoma Yulia Marshall RN 02:50 PM Rt Groin No bleeding/ No Hematoma Christiano Brown RN Pulses Time Site Pre-Procedure Post-Procedure Note 11/14/2016 10:37:00 AM Bilateral DP \\T\\ PT 2+ 2+ 11/14/2016 10:37:00 AM Bilateral radial 2+ 2+ 11/14/2016 12:35:00 PM Bilateral DP \\T\\ PT 3+ 11/14/2016 12:45:00 PM Bilateral DP \\T\\ PT 2+ 11/14/2016 1:01:00 PM Bilateral DP \\T\\ PT 2+ 11/14/2016 1:32:00 PM Bilateral DP \\T\\ PT 2+ 11/14/2016 1:45:00 PM Bilateral DP \\T\\ PT 2+ 11/14/2016 2:24:00 PM Bilateral DP \\T\\ PT 2+ 11/14/2016 2:35:00 PM Bilateral DP \\T\\ PT 2+ 11/14/2016 2:50:00 PM Bilateral DP \\T\\ PT 2+ Updated by Yulia Marshall RN on 11/14/2016 3:37:13 PM Yulia Marshall RN electronically signed on 11/14/2016 3:38:10 PM with status of Final
[2016-11-14] MEDS: Mirtazapine 15 MG TABLET PO SCH (21:28)
[2016-11-14] MEDS: *HR* Ticagrelor 90 MG TABLET PO SCH (21:30)
[2016-11-15 04:21] LABS: Basophils # 0.1 K/mcL (0.0-0.2); Basophils % 0.6 %; Eosinophils # 0.2 K/mcL (0.0-0.6); Eosinophils % 1.7 %; Hematocrit 43.3 % (37.5-50.1); Hemoglobin 14.9 g/dL (12.9-16.9); Immature Granulocytes % 0.6 % (0-4); Lymphocytes # 1.1 K/mcL (0.6-4.6); Lymphocytes % 12.9 %; Mean Corpuscular HGB Conc 34.4 g/dL (31.6-35.5); Mean Corpuscular Hemoglobin 30.8 pg (28.0-33.3); Mean Corpuscular Volume 89.5 fL (83.0-100.0); Mean Platelet Volume 11.3 fL (9.4-12.4); Neutrophils # 6.4 K/mcL (1.6-8.9); Platelet Count 193 K/mcL (140-400); Red Blood Count 4.84 M/mcL (4.19-5.50); Red Cell Distribution Width 12.4 % (11.5-14.5); Segmented Neutrophils % 73.2 %
[2016-11-15 04:53] LABS: BUN/Creatinine Ratio 14 (6-26); Blood Urea Nitrogen 15 mg/dL (8-26); Calcium 8.8 mg/dL (8.6-10.8); Carbon Dioxide 22 mEq/L (19-29); Chloride 107 mEq/L (98-109); Glucose 106 mg/dL (70-99); Osmolality,Calculated 291 (280-300); Potassium 3.7 mEq/L (3.5-4.5); Sodium 140 mEq/L (136-145); eGFR For African Americans > 60 (> 60); eGFR For Non-African Americans > 60 (> 60)
--- NOTE | 2016-11-15 06:51 | Invasive Diagnostic Lab ---
Name: Inocencio Mcmullen Date of Study: 11/14/2016 Date: 1935 Ht: 169.9 cm /66.9 in Medical Record#: [id number] Age: 81 Wt: 80. kg / 176.37 lb Account/Order#: [id number] Gender: Male BSA: 1.91 Order #: [id number] Fluoro Dose: 1791 mGy BMI: 27.71 Procedure Physician: Anjel Flores MD, [facility] Referring MD: Rebekah Ogden Referring MD: Procedures Performed: LEFT HEART CATH W/ GRAFTS Stent w/ PTCA Single Major Vessel Iliofemoral angiography Indications: Unstable Angina Impressions: There is severe three vessel coronary artery disease. The left ventricle is normal and has normal contractility EF 65% Patient had successful PTCA/Drug-Eluting Stent placement in the proximal-mid RCA. S/P CABG 3 of 4 patent bypass grafts. There is fair quality collateral vessel/vessels from the Circumflex to the Distal RCA that are visualized. Recommendations: Optimal medical therapy of patient's disease. Aggressive risk factor modification. If continued angina despite guideline directed medical therapy, return for ostial RCA PCI History/Risk Factors: CAD Hypertension Prior [place] Previous CABG Procedure Access obtained in the right Femoral artery by percutaneous puncture Patient had successful PTCA/Drug-Eluting Stent placement in the proximal/Ostial RCA. Complications: None, None, None Contrast: Isovue 146ml Hemodynamics: Pressures Site Systolic/ A Wave Diastolic/ V Wave End Diastolic/ Mean HR AO 152 83 113 68 AO 134 78 103 75 AO 129 80 103 74 AO 153 66 101 71 AO 139 80 108 72 LV 140 -9 5 69 LV 151 -7 38 71 AO 118 63 83 104 AO 53 26 37 76 AO 61 33 45 75 AO 140 73 103 79 AO 145 87 115 76 LV Ventriculography Ejection Method: LV Gram Ejection Fraction: 65% Wall Motion: AMAYA Anterobasal Normal Anterolateral Normal Apical: Normal Inferoapical Normal Inferobasal Normal Coronary Dominance: right Lesion Findings/Interventions * Left Main Coronary Artery There is a 50% stenosis in the LMCA. The lesion has a MARKY flow of 2. * Left Anterior Descending There is a 99% stenosis in the Mid LAD. The lesion has a MARKY flow of 2. * Circumflex Small vessel with diffuse disease * Ramus There is a 80% stenosis in the Ramus. * Right Coronary Artery There is a 16 mm long, 70% stenosis in the Proximal RCA. The lesion has no thrombus present. An intervention was performed on the Proximal RCA with a final stenosis of 0%. There were no lesion complications. The final MARKY flow was 3. There is a 12 mm long, 99% stenosis in the Mid RCA. The lesion has a MARKY flow of 2 and has no thrombus present. An intervention was performed on the Mid RCA with a final stenosis of 0%. There were no lesion complications. The final MARKY flow was 3. Residual ostial 60-70% stenosis Additional Findings: Grafts * The saphenous vein graft to the 2nd Diagonal is patent with 60% irregular plaque. MARKY flow is 3. * The saphenous vein graft to the Ramus is patent. MARKY flow is 3. * The saphenous vein graft to the Right PDA is occluded. * The left internal mammary graft to the Mid LAD is patent. MARKY flow is 3. No significant disease in the iliofemoral artery visualized, appropriate sheath placement in the [employer]. Interventional Device(s) Vessel Segment Type Name Diameter (mm) Length (mm) Mid RCA Balloon Emerge Monorail 2 12 Mid RCA Drug Eluting Stent Synergy 2.25 24 Mid RCA Balloon NC Emerge 2.75 6 Proximal RCA Drug Eluting Stent Synergy 3 16 Proximal RCA Drug Eluting Stent Synergy 3 8 Updated by RT Madyson(R) on 11/14/2016 11:59:58 AM Anjel Flores MD, FACC electronically signed on 11/15/2016 6:46:29 AM with status of Final
[2016-11-15] MEDS ORDERED: amLODIPine 5 MG TABLET PO SCH ×2 (08:41→09:00)
[2016-11-15] MEDS: Aspirin 81 MG TAB.CHEW PO SCH (08:47)
[2016-11-15] MEDS: Famotidine 20 MG TABLET PO SCH (08:47)
[2016-11-15] MEDS: Isosorbide MONOnitrate (24 HR) 60 MG TAB.ER.24H PO SCH (08:48)
[2016-11-15] MEDS: Lisinopril 20 MG TABLET PO SCH (08:48)
[2016-11-15] MEDS: *HR* Ticagrelor 90 MG TABLET PO SCH (08:48)
[2016-11-15] MEDS: cloNIDine HCl 0.1 MG TABLET PO SCH (08:48)
[2016-11-15] MEDS: Metoprolol XL (24 HR) Succ 25 MG TAB.ER.24H PO SCH (08:49)
--- NOTE | 2016-11-15 11:21 | Cardiology Progress Note ---
Date of Encounter: 11/15/16 Time of Encounter: 11:19 Assessment and Plan (1) CAD (coronary artery disease) Current Visit: Yes Status: Chronic Hx of CAD s/p 4v CABG in 2013. LHC showed 3/4 patent bypass grafts. S/p PCI to the prox and mid RCA with PTCA/ABENA. There was a remaining 60-70% stenosis in the ostial RCA. Medical management recommended. Collaterals from LC to RCA seen. SVG to RPDA occluded. COLON-LAD patent, SVG to 2nd diagonal 60% stenosis, SVG to Ramus patent. Importance of DAPT with asa and plavix uninterrupted for minimum of one year reviewed and he voiced understanding. Activity restrictions reviewed with patient. No driving for one week. No lifting over ten lbs for one week. No tub baths. Continue asa, plavix, statin, nitrates, and betablocker. F/u in 2 weeks with [facility]. Qualifiers: Coronary Disease-Associated Artery/Lesion type: bypass graft [place] vs. transplanted heart: [place] heart Associated angina: with unstable angina Qualified Code(s): I25.700 - Atherosclerosis of coronary artery bypass graft(s) , unspecified, with unstable angina pectoris (2) Unstable angina Current Visit: Yes Status: Acute Reports 1-day history of left-sided chest discomfort; states symptoms are similar to prior MO. Abnormal nuclear stress in January 2016 (small, mild-moderate, basal-mid inferior perfusion defect); has been treated medically as outpatient. No ischemic ECG changes noted per ECG. Initial troponin negative. Given symptoms and abnormal stress, recommend [facility] with possible PCI. S/p LHC 11/14/16 as described above. Discussion w patient/family: The assessment and plan as outlined above was discussed with the patient and/or family members who expressed understanding and agreement. All questions were answered. Thank you for involving us in the care of your patient. Please call with any questions. Subjective Principal diagnosis: Chest pain Interval history: S/p PCI to his RCA x2. Denies recurrent chest pain or dysnea. No problems at right groin access site. Objective Vital Signs, Last 4 Hours Temp Pulse Resp BP Pulse Ox 11/15/16 11:14 97.9 F 62 16 115/71 93 L 11/15/16 07:44 98.0 F 75 16 162/92 97 General: Conversant, No Apparent Distress HEENT: Atraumatic, Normocephaly, Mucus Membranes Moist Neck: No JVD, Normal carotid pulses Cardiac: Reg Rate and Rhythm, Normal S1 and S2, No Murmur Lungs: Normal Breath Sounds, No Wheeze, Rales, Rhonchi Neuro: Alert and responsive, No focal deficits noted Abdomen: Soft, Non-Tender Skin: No rashes noted on visualized skin Musculoskeletal: No Chest Wall Tenderness Extremities: No Clubbing, No Cyanosis, No Edema, Normal Pulses Results 11/15/16 03:45 11/15/16 03:45 Lab Results 11/15/16 11/15/16 03:45 03:45 WBC 8.7 Hgb 14.9 Hct 43.3 Plt Count 193 Sodium 140 Potassium 3.7 Chloride 107 Carbon Dioxide 22 BUN 15 Creatinine 1.04 Glucose 106 H Calcium 8.8 - Imaging and Cardiology Echo: report reviewed Cardiac cath: report reviewed - EKG Interpretation EKG results cardiology: other (Telemetry review shows NSR, Avg HR 79 bpm.) Consult Discharge Plan - Plan Referrals: Rebekah Ogden CNP [Primary Care Provider] - 11/20/16 4:15 pm
--- NOTE | 2016-11-15 15:05 | Discharge Summary ---
Date of Encounter: 11/15/16 Time of Encounter: 14:00 - Discharge Diagnosis (1) Unstable angina Priority: Primary Status: Acute Comments: Patient continuing to have intermittent bouts of chest pain lasting a few seconds at a time after his stents were placed yesterday. Started on Brilinta. These episodes are self limiting and brief. Patient is stating he still feels a little bit sore from yesterday and has utilized pain medication, we will send him home on pain medication as well. Follow-up closely outpatient with cardiology. (2) Chest pain Priority: Primary Status: Acute (3) CAD (coronary artery disease) Priority: Secondary Status: Chronic Qualifiers: Coronary Disease-Associated Artery/Lesion type: bypass graft [place] vs. transplanted heart: [place] heart Associated angina: with unstable angina Qualified Code(s): I25.700 - Atherosclerosis of coronary artery bypass graft(s) , unspecified, with unstable angina pectoris (4) Hypertension Priority: Secondary Status: Chronic Comments: Controlled, home medications of amlodipine 5 mg, metoprolol XL 12.5 mg daily, clonidine 0.1 mg daily, lisinopril 20 mg daily, and Imdur 60 mg daily have been continued Qualifiers: Hypertension type: essential hypertension Qualified Code(s): I10 - Essential (primary) hypertension (5) Syncope Priority: Secondary Status: Chronic Comments: Patient saying this is a chronic issue for him. He remained asymptomatic and denied dizziness or lightheadedness with position changes during this admission. Qualifiers: Syncope type: unspecified Qualified Code(s): R55 - Syncope and collapse - Discharge Medications Prescriptions: HYDROcodone/Acet 5/325 mg [[place] 5-325 mg] 1 tab PO Q6H PRN #15 tab PRN Reason: Pain Ticagrelor [Brilinta] 90 mg PO BID #60 tablet Home Medications: Aspirin 81 mg PO DAILY 04/29/15 [History] Isosorbide MONOnitrate (24 HR) [Imdur] 60 mg PO DAILY 04/29/15 [History] Ranitidine HCl [Zantac] 150 mg PO BID 04/29/15 [History] Simvastatin [Zocor] 20 mg PO HS 04/29/15 [History] Amlodipine [Norvasc] 5 mg PO DAILY 11/13/16 [History] CloNIDine HCl 0.1 mg PO DAILY 11/13/16 [History] Lisinopril [Zestril] 20 mg PO DAILY 11/13/16 [History] Metoprolol XL (24 HR) Succ [Toprol Xl] 12.5 mg PO DAILY 11/13/16 [History] Mirtazapine 7.5 mg PO HS 11/13/16 [History] Nitroglycerin [Nitrostat] 0.4 mg SL AD PRN 11/13/16 [History] Sertraline [Zoloft] 50 mg PO DAILY 11/13/16 [History] HYDROcodone/Acet 5/325 mg [[place] 5-325 mg] 1 tab PO Q6H PRN #15 tab 11/15/16 [Rx ] Ticagrelor [Brilinta] 90 mg PO BID #60 tablet 11/15/16 [Rx] Allergies/Adverse Reactions: Allergies Penicillins [PCN] Adverse Reaction (Verified 11/13/16 05:53) See Comments Procedures/tests Complete & Pending: Procedures Performed prior 72 hours Category Date Time Status CL Cardiac Catheterization [CL] Routine 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 11/14/16 07:00 Completed ECG 12 lead ECG [ECG] Routine Y 11/14/16 16:07 Completed Date of admission: 11/13/16 12:30 Primary care physician: Rebekah Ogden CNP Consults: 11/13/16 10:58 Consult to Cardiology [CONS] Routine Comment: Consulting Provider: Don Cox Reason for Consult: chest pain, previously abnormal stress test Call Completed: Yes Discharging clinician: Minnie Lopes Anticipated date of discharge: 11/15/16 - Patient Status Disposition: Home, Self-Care Condition: Fair Functional capacity at discharge: independent ambulation Overall status at discharge: patient is progressing back to baseline - Discharge Instructions Follow Up With: Rebekah Ogden CNP [Primary Care Provider] - 11/20/16 4:15 pm Don Cox [Provider Group] Additional Instructions: Follow-up with primary care provider as scheduled, follow-up with cardiology in 2 weeks - Diet and Activity Activity: increase activity as tolerated Diet: low fat, low cholesterol, low salt diet Hospital course: Mr. Mcmullen is a 81 year old male with past medical history of CAD status post CABG in 2013, hypertension, hyperlipidemia. Patient presented to the emergency department chief complaint left-sided anterior chest pain started on the evening prior to presentation when he was watching television. He states the pain did not radiate, was pressure-like and states he has had pain similar in the past which were typically resolves after nitroglycerin however last night the patient took 3 sublingual nitroglycerin tablets and the pain persisted prompting his presentation to the emergency department. Patient was given aspirin and his pain eventually resolved without further intervention and lasted approximate a 60 minutes total. Patient denied associated symptoms with this pain. Of note, patient was admitted last year and underwent a stress test that was abnormal and revealed a small irreversible ischemia however the patient elected for medical management and declined left heart catheter at that time. Pain was relatively well controlled until the night of presentation. Workup in the emergency department. Unremarkable. Patient was admitted to the hospitalist service for further evaluation and management. Echocardiogram unremarkable with preserved ejection fraction of 60%. Cardiology was brought on board and elected to proceed with left heart catheter revealed three-vessel coronary artery disease and had successful stent placement. Patient was then started on Brilinta. Patient was then observed overnight and had a couple bouts of quick episodes of chest pain that were self resolving. Patient also complained of soreness to his chest and he was sent home on a small supply pain medication. He was discharged home in stable condition with close outpatient follow-up recommended. ITS Impressions Chest X-Ray 11/13/16 06:02 IMPRESSION: Negative portable chest. D/ / Zachary Morley MD / Zachary Morley MD Interpreting Provider: Zahcary Morley MD Echocardiogram impressions: LVEF 60%. Normal LV chamber size, wall thickness and function. Mild left ventricular diastolic dysfunction. Atypical septal motion consistent with postoperative status. Normal rectal ventricular structure and function. No evidence of pulmonary hypertension. No significant valvular dysfunction. Left heart catheter impressions: There is severe three-vessel coronary artery disease. The left ventricle is normal and has normal contractility ejection fraction 65%. Patient has successful PTCA/drug-eluting stent placement to the proximal-mid RCA. Status post CABG 3-4 patent bypass grafts. There is fair quality of collateral vessels/vessels from the circumflex to the distal RCA that are visualized. Recommendations: Optimal medical therapy patient's disease. Aggressive risk factor modification. If continued angina despite guidelines directed medical therapy, return for ostial RCA PCI. - Time Spent with Patient Total time spent providing and/or coordinating discharge services: - Constitutional Vitals: Temp Pulse Resp BP Pulse Ox 97.9 F 62 16 115/71 93 L 11/15/16 11:14 11/15/16 11:14 11/15/16 11:14 11/15/16 11:14 11/15/16 11:14 General appearance: Present: A&O X 3, pleasant, no acute distress, answers questions appropriately - Head Head exam: Present: atraumatic, normocephalic - Eye Eye exam: Present: PERRL, conjuntiva pink, sclera anicteric Pupils: Present: PERRL - Neck Neck exam general surgery: Present: supple, trachea midline. Absent: lymphadenopathy - Respiratory Respiratory exam: Present: CTAB. Absent: accessory muscle use, rales, respiratory distress, rhonchi, wheezes - Cardiovascular Cardiovascular exam: Present: RRR, +S1, +S2. Absent: diastolic murmur, gallop, rubs, systolic murmur - GI/Abdominal GI/Abdominal exam: Present: normal bowel sounds, soft, no peritoneal signs. Absent: distended, tenderness - Extremities Exam Extremities exam: Present: warm, radial pulses palpable and symetrical. Absent : calf tenderness, cyanotic, pedal edema - Neurological Exam Neurological exam: Present: alert, CN II-XII intact, oriented X3, no focal deficits, strengths equal and symetr throughout. Absent: pronater drift, facial droop, speech deficit - Skin Skin exam: Present: dry, intact, normal color, warm
[2016-11-15 15:31] VITALS: BP 129/74
--- NOTE | 2016-11-15 17:23 | Electrocardiograph Report ---
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
== END 2016-11-15 16:05 | disposition home or self-care (01) ==
LOC: EMEROO 05:47 → 3BNU 05:47
PROVIDERS: ADMIT Internal Medicine; ATTEND Nurse Practitioner Family

== ENCOUNTER 2016-11-16 11:58 | Observation (INO) ==
[2016-11-16] MEDS ORDERED: 0.9 % Sodium Chloride 250 ML IVC ONE ×2 (12:46→13:39)
--- NOTE | 2016-11-16 12:48 | Emergency Department Note ---
Disposition Clinical Impression: Elevated troponin I level, Hypotension Disposition: Admitted As Inpatient Condition: Fair General Adult HPI - General Chief complaint: ED Shortness of Breath/Dyspnea Stated complaint: ROBERT, near syncope Time Seen by Provider: 11/16/16 12:18 Source: patient, family Limitations: no limitations Nursing Notes Reviewed: Yes Vital Signs Reviewed: Yes (initial SBP 89, repeat SBP 107.) - History of Present Illness HPI Narrative: Mr. Mcmullen is a 81 year old male that presents for dizziness, blurry vision, and shortness of breath. Recent admission, discharged yesterday, received 3 heart stents on 11/14/[address] Flores. Patient's recalled him having dizziness yesterday, which they had related to being NPO. Today states she gave patient all of his regular medications, including his new blood thinner ( Brilinta). Patient notes taking medication at approx 9:30, stating he felt completely fine prior, however he became dizzy after and went to lay down. He got back up at approx. 11am still dizzy with blurry vision, noting some shortness of breath and daughter said his speech seemed slow. He noted some left anterior chest pain last night that resolved with his pain medication. His BP upon arrival was 89/49. Currently states blurry vision, dizziness has resolved; states difficulty with deep breath, but denies any chest pain, abdominal pain. Pt Subjective Complaint: ROBERT, dizziness, blurry vision Onset (ago): minute(s) (11am) Pain Scale: 0 Consistency: now resolved Improves with: rest Worsens with: movement Treatments Prior to Arrival: none - Related Data Home Medications Medication Instructions Recorded Confirmed Aspirin 81 mg PO DAILY 04/29/15 11/19/16 Isosorbide MONOnitrate (24 HR) 60 mg PO DAILY 04/29/15 11/19/16 [Imdur] Ranitidine HCl [Zantac] 150 mg PO BID 04/29/15 11/19/16 Simvastatin [Zocor] 20 mg PO HS 04/29/15 11/19/16 Amlodipine [Norvasc] 5 mg PO DAILY 11/13/16 11/19/16 Metoprolol XL (24 HR) Succ [Toprol 12.5 mg PO BID 11/13/16 11/19/16 Xl] Mirtazapine 7.5 mg PO HS 11/13/16 11/19/16 Nitroglycerin [Nitrostat] 0.4 mg SL Q5M PRN 11/13/16 11/19/16 Triamcinolone Acet 0.1% CRM 1 appl TP BID 11/16/16 11/19/16 [Kenalog] Previous Rx's Medication Instructions Recorded HYDROcodone/Acet 5/325 mg [Candia 1 tab PO Q6H PRN #15 tab 11/15/16 5-325 mg] Ticagrelor [Brilinta] 90 mg PO BID #60 tablet 11/15/16 Lisinopril [Zestril] 10 mg PO DAILY #30 tablet 11/17/16 Allergies Allergy/AdvReac Type Severity Reaction Status Date / Time Penicillins [PCN] AdvReac See Verified 11/19/16 10:10 Comments All systems ED: reviewed and negative except as stated. Cardiovascular: Denies: chest pain Respiratory: Reports: dyspnea. Denies: cough Gastrointestinal: Denies: abdominal pain, nausea, vomiting Neurological: Denies: headache, confusion Endocrine: Reports: fatigue Past Medical History - Past Medical History Attestation: Yes The following information was validated with the patient. Source: patient, obtained from family Medical history: Reports: coronary artery disease, hyperlipidemia, hypertension , myocardial infarction Surgical history: Reports: angioplasty/stent, other Psychiatric history: Reports: no psych history - Social History Smoking Status: Never smoker Smokeless Tobacco Status: No Alcohol use: Reports: none Drug use: Reports: none Physical Exam - General Limitations: no limitations General appearance: alert, in no apparent distress - Head Head exam: atraumatic, normocephalic - Eye Eye exam: Present: normal appearance, PERRL, EOMI - ENT ENT exam: normal exam, mucous membranes moist - Neck Neck exam: Present: normal inspection - Chest Chest inspection: Present: normal inspection, symmetric chest wall rise, other ( medialsternal scar). Absent: tenderness - Respiratory Respiratory exam: Present: normal lung sounds bilaterally. Absent: respiratory distress, wheezes - Cardiovascular Cardiovascular exam: Present: regular rate, +S1, +S2 - Abdominal Exam Abdominal exam: Present: soft, Non-Tender, normal bowel sounds - Extremities Exam Extremities exam: Present: full ROM, other (trace edema bilaterally). Absent: tenderness - Neurological Exam Neurological exam: Present: alert, oriented X3, CN II-XII intact, other (upper extremity strength +5/5 bilaterally, no facial drooping) - Psychiatric Psychiatric exam: Present: normal affect, normal mood - Skin Skin exam: Present: warm, dry, intact Course - Reevaluation(s) Reevaluation #1: Patent resting comfortably in bed. Patient continues to have low BP compared to baseline/hypotensive. Troponin elevated at 0.04, previously normal two days ago. Likely secondary to recent LHC with PCI/stenting. Patient and agreeable to admission. Time: 14:35 Vital Signs Temperature 97.2 F L 11/16/16 12:01 Pulse Rate 60 11/16/16 12:01 Respiratory Rate 18 11/16/16 12:01 Blood Pressure 89/49 11/16/16 12:01 O2 Sat by Pulse Oximetry 96 11/16/16 12:01 Temperature 97.7 F 11/17/16 11:43 Pulse Rate 65 11/17/16 11:43 Respiratory Rate 15 11/17/16 11:43 Blood Pressure 116/70 11/17/16 11:43 O2 Sat by Pulse Oximetry 95 11/17/16 11:43 Oxygen Delivery Oxygen Delivery Room Air Medical Decision Making - Medical Records Medical records reviewed: Yes I reviewed the patient's medical records. - Lab Data Lab results reviewed: Yes I reviewed the patient's lab results. Result diagrams: 11/17/16 01:14 11/17/16 01:14 Lab Results 11/16/16 11/16/16 11/16/16 Range/Units 12:51 12:51 12:51 WBC 7.8 (4.3-11.1) K/mcL RBC 4.49 (4.19-5.50) M/mcL Hgb 13.5 (12.9-16.9) g/dL Hct 40.3 (37.5-50.1) % MCV 89.8 (83.0-100.0) fL MCH 30.1 (28.0-33.3) pg MCHC 33.5 (31.6-35.5) g/dL RDW 12.4 (11.5-14.5) % Plt Count 198 (140-400) K/mcL MPV 11.0 (9.4-12.4) fL Immature Gran % 0.6 (0-4) % Seg Neutrophils % 70.1 % Lymphocytes % 11.9 % Monocytes % 13.6 % Eosinophils % 3.2 % Basophils % 0.6 % Neutrophils # 5.5 (1.6-8.9) K/mcL Lymphocytes # 0.9 (0.6-4.6) K/mcL Monocytes # 1.1 (0.0-1.3) K/mcL Eosinophils # 0.3 (0.0-0.6) K/mcL Basophils # 0.1 (0.0-0.2) K/mcL PT 12.6 H (9.4-12.1) Seconds INR 1.2 APTT 31.5 (26.0-36.0) Seconds Sodium 139 (136-145) mEq/L Potassium 3.9 (3.5-4.5) mEq/L Chloride 106 (98-109) mEq/L Carbon Dioxide 24 (19-29) mEq/L BUN 18 (8-26) mg/dL Creatinine 1.56 H (0.72-1.25) mg/dL Est GFR ( Amer) 52 L (> 60) Est GFR (Non-Af Amer) 43 L (> 60) BUN/Creatinine Ratio 12 (6-26) Glucose 88 (70-99) mg/dL Calculated Osmolality 289 (280-300) Lactic Acid (0.5-2.2) mmol/L Calcium 9.3 (8.6-10.8) mg/dL Magnesium 1.8 (1.6-2.6) mg/dL Total Bilirubin 1.2 (0.2-1.2) mg/dL AST 34 (5-34) Units/L ALT 29 (0-55) Units/L Alkaline Phosphatase 90 (38-126) Units/L Troponin I (0-0.03) ng/mL B-Natriuretic Peptide (0-100) pg/mL Serum Total Protein 6.9 (6.0-8.3) g/dL Albumin 3.5 (3.5-5.0) g/dL Globulin 3.4 (2.4-3.5) g/dL Albumin/Globulin Ratio 1.0 L (1.1-2.2) Urine Color (Yellow) Urine Clarity (Clear) Urine pH (5.0-8.0) pH Units Ur Specific [place] (1.010-1.025) Urine Protein (Neg-Trace) mg/dL Urine Glucose (UA) (Normal) mg/dL Urine Ketones (Negative) mg/dL Urine Blood (Negative) Urine Nitrite (Negative) Urine Bilirubin (Negative) Urine Urobilinogen (Normal) mg/dL Ur Leukocyte Esterase (Negative) Ur Culture Indicated? (NO) 11/16/16 11/16/16 11/16/16 Range/Units 12:51 12:51 12:51 WBC (4.3-11.1) K/mcL RBC (4.19-5.50) M/mcL Hgb (12.9-16.9) g/dL Hct (37.5-50.1) % MCV (83.0-100.0) fL MCH (28.0-33.3) pg MCHC (31.6-35.5) g/dL RDW (11.5-14.5) % Plt Count (140-400) K/mcL MPV (9.4-12.4) fL Immature Gran % (0-4) % Seg Neutrophils % % Lymphocytes % % Monocytes % % Eosinophils % % Basophils % % Neutrophils # (1.6-8.9) K/mcL Lymphocytes # (0.6-4.6) K/mcL Monocytes # (0.0-1.3) K/mcL Eosinophils # (0.0-0.6) K/mcL Basophils # (0.0-0.2) K/mcL PT (9.4-12.1) Seconds INR APTT (26.0-36.0) Seconds Sodium (136-145) mEq/L Potassium (3.5-4.5) mEq/L Chloride (98-109) mEq/L Carbon Dioxide (19-29) mEq/L BUN (8-26) mg/dL Creatinine (0.72-1.25) mg/dL Est GFR ( Amer) (> 60) Est GFR (Non-Af Amer) (> 60) BUN/Creatinine Ratio (6-26) Glucose (70-99) mg/dL Calculated Osmolality (280-300) Lactic Acid 1.7 (0.5-2.2) mmol/L Calcium (8.6-10.8) mg/dL Magnesium (1.6-2.6) mg/dL Total Bilirubin (0.2-1.2) mg/dL AST (5-34) Units/L ALT (0-55) Units/L Alkaline Phosphatase (38-126) Units/L Troponin I 0.04 H* (0-0.03) ng/mL B-Natriuretic Peptide 100 (0-100) pg/mL Serum Total Protein (6.0-8.3) g/dL Albumin (3.5-5.0) g/dL Globulin (2.4-3.5) g/dL Albumin/Globulin Ratio (1.1-2.2) Urine Color (Yellow) Urine Clarity (Clear) Urine pH (5.0-8.0) pH Units Ur Specific [place] (1.010-1.025) Urine Protein (Neg-Trace) mg/dL Urine Glucose (UA) (Normal) mg/dL Urine Ketones (Negative) mg/dL Urine Blood (Negative) Urine Nitrite (Negative) Urine Bilirubin (Negative) Urine Urobilinogen (Normal) mg/dL Ur Leukocyte Esterase (Negative) Ur Culture Indicated? (NO) 11/16/16 Range/Units 15:55 WBC (4.3-11.1) K/mcL RBC (4.19-5.50) M/mcL Hgb (12.9-16.9) g/dL Hct (37.5-50.1) % MCV (83.0-100.0) fL MCH (28.0-33.3) pg MCHC (31.6-35.5) g/dL RDW (11.5-14.5) % Plt Count (140-400) K/mcL MPV (9.4-12.4) fL Immature Gran % (0-4) % Seg Neutrophils % % Lymphocytes % % Monocytes % % Eosinophils % % Basophils % % Neutrophils # (1.6-8.9) K/mcL Lymphocytes # (0.6-4.6) K/mcL Monocytes # (0.0-1.3) K/mcL Eosinophils # (0.0-0.6) K/mcL Basophils # (0.0-0.2) K/mcL PT (9.4-12.1) Seconds INR APTT (26.0-36.0) Seconds Sodium (136-145) mEq/L Potassium (3.5-4.5) mEq/L Chloride (98-109) mEq/L Carbon Dioxide (19-29) mEq/L BUN (8-26) mg/dL Creatinine (0.72-1.25) mg/dL Est GFR ( Amer) (> 60) Est GFR (Non-Af Amer) (> 60) BUN/Creatinine Ratio (6-26) Glucose (70-99) mg/dL Calculated Osmolality (280-300) Lactic Acid (0.5-2.2) mmol/L Calcium (8.6-10.8) mg/dL Magnesium (1.6-2.6) mg/dL Total Bilirubin (0.2-1.2) mg/dL AST (5-34) Units/L ALT (0-55) Units/L Alkaline Phosphatase (38-126) Units/L Troponin I (0-0.03) ng/mL B-Natriuretic Peptide (0-100) pg/mL Serum Total Protein (6.0-8.3) g/dL Albumin (3.5-5.0) g/dL Globulin (2.4-3.5) g/dL Albumin/Globulin Ratio (1.1-2.2) Urine Color Yellow (Yellow) Urine Clarity Clear (Clear) Urine pH 6.5 (5.0-8.0) pH Units Ur Specific [place] 1.019 (1.010-1.025) Urine Protein Negative (Neg-Trace) mg/dL Urine Glucose (UA) Normal (Normal) mg/dL Urine Ketones Negative (Negative) mg/dL Urine Blood Negative (Negative) Urine Nitrite Negative (Negative) Urine Bilirubin Negative (Negative) Urine Urobilinogen Normal (Normal) mg/dL Ur Leukocyte Esterase Negative (Negative) Ur Culture Indicated? NO (NO) - Radiology Data Radiology results reviewed: Yes I reviewed the patient's radiology results. Chest X-Ray 11/16/16 12:21 IMPRESSION: No acute cardiopulmonary process is identified. D/ / Jefe Santamaria MD / Jefe Santamaria MD Interpreting Provider: Jefe Santamaria MD Head CT 11/16/16 12:21 IMPRESSION: No acute intracranial abnormality. Diffuse atrophic changes with findings suggesting chronic microvascular ischemia D/ / Silvio Del Real MD / Silvio Del Real MD Interpreting Provider: Silvio Del Real MD Chest CTA 11/16/16 13:33 IMPRESSION: No evidence of pulmonary embolism or acute pulmonary abnormality. D/ / Ed Bernal MD / Ed Bernal MD Interpreting Provider: Ed Bernal MD - EKG Data EKG #1 EKG attestation: Yes I reviewed and interpreted this EKG. EKG shows normal: sinus rhythm Rate: normal When compared to previous EKG there are: no significant changes Critical Care Time Total Critical Care Time: 30 Attestation: Critical care performed: Time is exclusive of separately billable procedures. Time includes: direct patient care, patient reassessment, coordination of patient care, interpretation of data (laboratory data, radiology data, and respiratory data), review of patient's medical records, medical consultation and documentation of patient care. Procedures included in critical care time: Procedures excluded from critical care time: Attestation Statement - Attestation Attestation: I examined this patient and my medical decision-making was reviewed with the BORDER GUARD/PA/Advanced Practice Nurse/Resident Physician. I agree with the documented findings, disposition and treatment plan as described except to the extent set forth below. Patient presents with complaint of blurred vision dizziness. Patient does have lower blood pressure and sent facility. Patient has a chest pain. Patient was started on a new blood. Patient workup was fairly unremarkable besides a troponin that was elevated. This is likely secondary to recent instrumentation.. Patient persistently hypotensive so patient be admitted to the hospitalist service for further care workup.
[2016-11-16 13:04] LABS: Basophils # 0.1 K/mcL (0.0-0.2); Basophils % 0.6 %; Eosinophils # 0.3 K/mcL (0.0-0.6); Eosinophils % 3.2 %; Hematocrit 40.3 % (37.5-50.1); Hemoglobin 13.5 g/dL (12.9-16.9); Immature Granulocytes % 0.6 % (0-4); Lymphocytes # 0.9 K/mcL (0.6-4.6); Lymphocytes % 11.9 %; Mean Corpuscular HGB Conc 33.5 g/dL (31.6-35.5); Mean Corpuscular Hemoglobin 30.1 pg (28.0-33.3); Mean Corpuscular Volume 89.8 fL (83.0-100.0); Monocytes # 1.1 K/mcL (0.0-1.3); Monocytes % 13.6 %; Neutrophils # 5.5 K/mcL (1.6-8.9); Platelet Count 198 K/mcL (140-400); Red Blood Count 4.49 M/mcL (4.19-5.50); Red Cell Distribution Width 12.4 % (11.5-14.5); Segmented Neutrophils % 70.1 %
[2016-11-16 13:11] LABS: INR 1.2; Prothrombin Time 12.6 Seconds (9.4-12.1)
[2016-11-16 13:15] LABS: Activated Partial Thrombo Time 31.5 Seconds (26.0-36.0)
[2016-11-16 13:19] LABS: Albumin 3.5 g/dL (3.5-5.0); Bilirubin,Total 1.2 mg/dL (0.2-1.2); Calcium 9.3 mg/dL (8.6-10.8); Globulin 3.4 g/dL (2.4-3.5); Magnesium 1.8 mg/dL (1.6-2.6); Potassium 3.9 mEq/L (3.5-4.5); Total Protein 6.9 g/dL (6.0-8.3)
[2016-11-16 16:04] LABS: Bilirubin,Urine Negative (Negative); Blood,Urine Negative (Negative); Clarity,Urine Clear (Clear); Color,Urine Yellow (Yellow); Glucose,Urine (UA) Normal (Normal); Ketones,Urine Negative (Negative); Leukocyte Esterase,Urine Negative (Negative); Nitrite,Urine Negative (Negative); PH,Urine 6.5 pH Units (5.0-8.0); Protein,Urine Negative (Neg-Trace); Specific Gravity,Urine 1.019 (1.010-1.025); Urobilinogen,Urine Normal (Normal)
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
[2016-11-16] MEDS ORDERED: Ondansetron 4 MG/2 ML VIAL IVP PRN (18:52)
[2016-11-16] MEDS ORDERED: Acetaminophen 325 MG TABLET PO PRN (18:52)
[2016-11-16] MEDS ORDERED: Naloxone 0.4 MG/ML INJ IVP PRN (18:52)
[2016-11-16] MEDS ORDERED: *HR* HYDROcodone/Acet 5/325 mg TABLET PO PRN (18:55)
[2016-11-16] MEDS ORDERED: Nitroglycerin 0.4 MG TAB.SUBL SL PRN (18:55)
[2016-11-16] MEDS ORDERED: Mirtazapine 15 MG TABLET PO SCH (21:00)
[2016-11-16] MEDS: Famotidine 20 MG TABLET PO SCH (21:02)
[2016-11-16] MEDS: *HR* Ticagrelor 90 MG TABLET PO SCH (21:03)
[2016-11-16] MEDS: cloNIDine HCl 0.1 MG TABLET PO SCH (22:12)
[2016-11-16] MEDS: 0.9 % Sodium Chloride 1,000 ML IVC SCH (22:12)
[2016-11-16] MEDS: Triamcinolone Acet 0.1% CRM 15 GM TUBE TP SCH (22:52)
[2016-11-16] MEDS: Metoprolol XL (24 HR) Succ 25 MG TAB.ER.24H PO SCH (23:00)
[2016-11-17 01:29] LABS: Basophils # 0.1 K/mcL (0.0-0.2); Basophils % 0.6 %; Eosinophils # 0.3 K/mcL (0.0-0.6); Eosinophils % 3.8 %; Hemoglobin 13.6 g/dL (12.9-16.9); Immature Granulocytes % 0.2 % (0-4); Lymphocytes % 12.8 %; Mean Corpuscular HGB Conc 33.2 g/dL (31.6-35.5); Mean Corpuscular Hemoglobin 29.9 pg (28.0-33.3); Mean Corpuscular Volume 90.1 fL (83.0-100.0); Mean Platelet Volume 11.1 fL (9.4-12.4); Monocytes # 0.9 K/mcL (0.0-1.3); Monocytes % 11.3 %; Neutrophils # 5.8 K/mcL (1.6-8.9); Platelet Count 165 K/mcL (140-400); Red Blood Count 4.55 M/mcL (4.19-5.50); Red Cell Distribution Width 12.4 % (11.5-14.5); Segmented Neutrophils % 71.3 %
[2016-11-17 01:42] LABS: BUN/Creatinine Ratio 13 (6-26); Blood Urea Nitrogen 14 mg/dL (8-26); Calcium 9.1 mg/dL (8.6-10.8); Carbon Dioxide 23 mEq/L (19-29); Chloride 111 mEq/L (98-109); Glucose 102 mg/dL (70-99); Magnesium 1.9 mg/dL (1.6-2.6); Osmolality,Calculated 291 (280-300); Potassium 4.1 mEq/L (3.5-4.5); Sodium 140 mEq/L (136-145); eGFR For African Americans > 60 (> 60); eGFR For Non-African Americans > 60 (> 60)
[2016-11-17] MEDS ORDERED: *HR* Enoxaparin 30 MG/0.3 ML SYRINGE SQ SCH (06:00)
--- NOTE | 2016-11-17 06:42 | Carotid Imaging Report ---
Carotid Duplex Patient Name:Inocencio Mcmullen Order Number:[id number] Procedure Date:11/16/2016 Date:1935ge:81 yrs Gender:Male Rt.BP:157 / 89 mmHgHeart Rate: Location:[facility] Room #: 2NE21 Certified Fraud Examiner:Elizabeth Ovalles RVT Referring MD:Iker Pozo, DO chemical compounder helper:Rebekah Ogden, SCIENTIFIC ARTIST Reading MD:Oc Quintero MD Risk Factors Yes/No Hypertension Yes Hypercholesterolemia Yes Impressions: The bilateral carotid arteries have minimal plaque throughout. Findings Carotid Duplex: Right: There is nonstenotic plaque in the right distal common carotid artery. There is smooth heterogeneous plaque. There is nonstenotic plaque in the right bifurcation. There is smooth heterogeneous plaque. There is nonstenotic plaque in the right proximal internal carotid artery. There is smooth heterogeneous plaque. Left: There is nonstenotic plaque in the left distal common carotid artery. There is smooth heterogeneous plaque. There is nonstenotic plaque in the left bifurcation. There is smooth heterogeneous plaque. There is nonstenotic plaque in the left proximal internal carotid artery. There is smooth heterogeneous plaque. Prior Study: No prior study available for comparison. Carotid Results Right PSV EDV Assessment Proximal CCA 86 10 Normal Mid CCA 86 11 Normal Distal CCA 57 9 Non Stenotic Plaque Bifurcation 55 11 Non Stenotic Plaque Proximal ICA 58 8 Non Stenotic Plaque Mid ICA 45 10 Normal Distal ICA 47 9 Normal ECA 92 5 Normal Vertebral Artery 26 6 Antegrade Flow Left PSV EDV Assessment Proximal CCA 91 10 Normal Mid CCA 88 12 Normal Distal CCA 59 7 Non Stenotic Plaque Bifurcation 71 10 Non Stenotic Plaque Proximal ICA 97 19 Non Stenotic Plaque Mid ICA 66 13 Normal Distal ICA 57 11 Normal ECA 120 7 Normal Vertebral Artery 75 7 Antegrade Flow Ratio's Right ICA/CCA Ratio: 0.67 ICA/CCA Values: 58/86 Left ICA/CCA Ratio: 1.10 ICA/CCA Values: 97/88 Updated by Oc Quintero MD on 11/17/2016 6:33:39 AM electronically signed on 11/17/2016 6:35:51 AM with status of Final
[2016-11-17] MEDS: Famotidine 20 MG TABLET PO SCH (07:53)
[2016-11-17] MEDS: *HR* Ticagrelor 90 MG TABLET PO SCH (07:54)
[2016-11-17] MEDS: Metoprolol XL (24 HR) Succ 25 MG TAB.ER.24H PO SCH (07:54)
[2016-11-17] MEDS ORDERED: amLODIPine 5 MG TABLET PO SCH (09:00)
[2016-11-17] MEDS ORDERED: Aspirin 81 MG TAB.CHEW PO SCH (09:00)
[2016-11-17] MEDS ORDERED: Isosorbide MONOnitrate (24 HR) 60 MG TAB.ER.24H PO SCH (09:00)
[2016-11-17] MEDS: Triamcinolone Acet 0.1% CRM 15 GM TUBE TP SCH (10:30)
[2016-11-17] MEDS: cloNIDine HCl 0.1 MG TABLET PO SCH (10:30)
[2016-11-17] MEDS: 0.9 % Sodium Chloride 1,000 ML IVC SCH (11:25)
[2016-11-17 11:44] VITALS: BP 116/70
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
--- NOTE | 2016-11-17 14:46 | Discharge Summary ---
Date of Encounter: 11/17/16 Time of Encounter: 14:43 - Discharge Diagnosis (1) ROHAN (acute kidney injury) Priority: Secondary Status: Acute (2) Near syncope Priority: Primary Status: Acute (3) CAD (coronary artery disease) Priority: Secondary Status: Chronic Qualifiers: Coronary Disease-Associated Artery/Lesion type: bypass graft [place] vs. transplanted heart: [place] heart Associated angina: without angina Qualified Code(s): I25.810 - Atherosclerosis of coronary artery bypass graft(s) without angina pectoris (4) Hypertension Priority: Secondary Status: Chronic Qualifiers: Hypertension type: essential hypertension Qualified Code(s): I10 - Essential (primary) hypertension (5) Hypotension Priority: Secondary Status: Suspected Qualifiers: Hypotension type: hypotension due to drug Qualified Code(s): I95.2 - Hypotension due to drugs - Discharge Medications Prescriptions: Lisinopril [Zestril] 10 mg PO DAILY #30 tablet Home Medications: Aspirin 81 mg PO DAILY 04/29/15 [History] Isosorbide MONOnitrate (24 HR) [Imdur] 60 mg PO DAILY 04/29/15 [History] Ranitidine HCl [Zantac] 150 mg PO BID 04/29/15 [History] Simvastatin [Zocor] 20 mg PO HS 04/29/15 [History] Amlodipine [Norvasc] 5 mg PO DAILY 11/13/16 [History] Metoprolol XL (24 HR) Succ [Toprol Xl] 12.5 mg PO BID 11/13/16 [History] Mirtazapine 7.5 mg PO HS 11/13/16 [History] Nitroglycerin [Nitrostat] 0.4 mg SL Q5M PRN 11/13/16 [History] HYDROcodone/Acet 5/325 mg [[place] 5-325 mg] 1 tab PO Q6H PRN #15 tab 11/15/16 [Rx ] Ticagrelor [Brilinta] 90 mg PO BID #60 tablet 11/15/16 [Rx] Triamcinolone Acet 0.1% CRM [Kenalog] 1 appl TP BID 11/16/16 [History] Lisinopril [Zestril] 10 mg PO DAILY #30 tablet 11/17/16 [Rx] Allergies/Adverse Reactions: Allergies Penicillins [PCN] Adverse Reaction (Verified 11/16/16 12:10) See Comments Procedures/tests Complete & Pending: Procedures Performed prior 72 hours Category Date Time Status EV carotid duplex imaging BI Routine Y 11/16/16 18:56 Completed Date of admission: 11/16/16 16:12 Primary care physician: Rebekah Ogden CNP Consults: 11/16/16 18:54 Consult to Physician [CONS] Routine Consulting Provider: Silvio Merchant Reason for Consult: Near syncope. Recent stents. 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 Mcmullen is a 81 year old male who presented after he felt like he was going to pass out at home. He was recently discharged after undergoing PCI to his RCA on 11/13/16. He was admitted to the hospital after syncopal episode and chest pain for that admission. On this admission He was found to have low blood pressure in the 80's systolic. He denies recurrent chest pain. He was found to be dehydrated and and diagnosed with acute kidney injury. He was placed in observation and monitored on telemetry, he received treatment with IV fluids. His clonidine was stopped and his lisinopril was decreased from 20 mg twice a day to 10 mg daily. Creatinine improved from 1.5 yesterday to 1.1 today. The patient is currently asymptomatic. Troponin remained negative and telemetry revealed no evidence of arrhythmia. He was cleared by cardiology for discharge home. - Time Spent with Patient Total time spent providing and/or coordinating discharge services: - Constitutional Vitals: Temp Pulse Resp BP Pulse Ox 97.7 F 65 15 116/70 95 11/17/16 11:43 11/17/16 11:43 11/17/16 11:43 11/17/16 11:43 11/17/16 11:43 General appearance: Present: A&O X 3, pleasant, answers questions appropriately - Respiratory Respiratory exam: Present: CTAB. Absent: accessory muscle use, rales, rhonchi, wheezes - Cardiovascular Cardiovascular exam: Present: RRR, +S1, +S2. Absent: diastolic murmur, gallop, rubs, systolic murmur - Extremities Exam Extremities exam: Present: warm, radial pulses palpable and symetrical. Absent : calf tenderness, cyanotic, pedal edema
[2016-11-18] MEDS ORDERED: Famotidine 20 MG TABLET PO SCH (09:00)
--- NOTE | 2016-11-19 06:10 | Electrocardiograph Report ---
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
== END 2016-11-17 15:46 | disposition home or self-care (01) ==
LOC: EMEROO 11:58 → 2NENU 11:58 → SUATTDRO 16:12 → 2NENU 16:51
PROVIDERS: ADMIT Nurse Practitioner Family; ATTEND Internal Medicine

== ENCOUNTER 2016-11-19 07:02 | Observation (INO) ==
[2016-11-19] MEDS ORDERED: Aspirin 81 MG TAB.CHEW PO ONE (07:15)
[2016-11-19 07:38] LABS: Basophils % 0.6 %; Eosinophils # 0.2 K/mcL (0.0-0.6); Eosinophils % 3.5 %; Hematocrit 44.1 % (37.5-50.1); Immature Granulocytes % 0.3 % (0-4); Immature Platelets 6.5 % (1.1-6.1); Lymphocytes # 0.8 K/mcL (0.6-4.6); Mean Corpuscular HGB Conc 34.5 g/dL (31.6-35.5); Mean Corpuscular Hemoglobin 30.1 pg (28.0-33.3); Mean Corpuscular Volume 87.3 fL (83.0-100.0); Mean Platelet Volume 10.7 fL (9.4-12.4); Monocytes # 0.8 K/mcL (0.0-1.3); Monocytes % 11.2 %; Neutrophils # 5.1 K/mcL (1.6-8.9); Platelet Count 207 K/mcL (140-400); Red Blood Count 5.05 M/mcL (4.19-5.50); Red Cell Distribution Width 12.3 % (11.5-14.5); Segmented Neutrophils % 73.4 %
[2016-11-19 07:39] LABS: Hemoglobin 15.2 g/dL (12.9-16.9)
--- NOTE | 2016-11-19 07:39 | Emergency Department Note ---
Disposition Clinical Impression: Chest pain Qualifiers: Chest pain type: unspecified Qualified Code(s): R07.9 - Chest pain, unspecified Nausea & vomiting Qualifiers: Vomiting type: unspecified Vomiting Intractability: unspecified Qualified Code( s): R11.2 - Nausea with vomiting, unspecified Disposition: Admitted As Inpatient Condition: Fair Referrals: NO,PCP [Non-Partnered Physician] - Forms: ED Satisfaction Letter Time of Disposition: 09:26 Chest Pain HPI - General Chief Complaint: ED Chest Pain Stated Complaint: chest pains/vomiting coffee ground emesis Time Seen by Provider: 11/19/16 07:10 Source: patient, other Limitations: no limitations Vital Signs Reviewed: Yes Nursing Notes Reviewed: Yes - History of Present Illness HPI Narrative: 81-year-old male who is status post stent placement week ago, status post open heart surgery couple years ago who comes in complaining of chest pain. The patient states the pain is similar to what he had prior to having the stents done. also states that he had an episode of vomiting with some coffee grounds. He is on Brilinta. Pt complaint: chest pain Onset (ago): day(s) Duration: intermittent Onset: during rest Pain Location: substernal, left chest Severity: moderate, severe Severity scale (1-10): 8 Quality: tightness, aching, heaviness Pain Radiation: none Improves with: nothing Worsens with: nothing Associated symptoms: Reports: nausea, vomiting Treatments prior to arrival chest pain: none - Related Data Home Medications Medication Instructions Recorded Confirmed Aspirin 81 mg PO DAILY 04/29/15 11/16/16 Isosorbide MONOnitrate (24 HR) 60 mg PO DAILY 04/29/15 11/16/16 [Imdur] Ranitidine HCl [Zantac] 150 mg PO BID 04/29/15 11/16/16 Simvastatin [Zocor] 20 mg PO HS 04/29/15 11/16/16 Amlodipine [Norvasc] 5 mg PO DAILY 11/13/16 11/16/16 Metoprolol XL (24 HR) Succ [Toprol 12.5 mg PO BID 11/13/16 11/16/16 Xl] Mirtazapine 7.5 mg PO HS 11/13/16 11/16/16 Nitroglycerin [Nitrostat] 0.4 mg SL Q5M PRN 11/13/16 11/16/16 Triamcinolone Acet 0.1% CRM 1 appl TP BID 11/16/16 11/16/16 [Kenalog] Previous Rx's Medication Instructions Recorded HYDROcodone/Acet 5/325 mg [[place] 1 tab PO Q6H PRN #15 tab 11/15/16 5-325 mg] Ticagrelor [Brilinta] 90 mg PO BID #60 tablet 11/15/16 Lisinopril [Zestril] 10 mg PO DAILY #30 tablet 11/17/16 Allergies Allergy/AdvReac Type Severity Reaction Status Date / Time Penicillins [PCN] AdvReac See Verified 11/19/16 07:06 Comments Constitutional: Denies: fever, chills, weakness, weight change Eyes: Denies: eye pain, eye discharge, vision change ENT ED: Denies: ear pain, throat pain, dental pain, hearing loss, epistaxis, congestion, dysphagia Cardiovascular: Reports: chest pain. Denies: palpitations, dyspnea on exertion , edema, syncope Respiratory: Denies: cough, dyspnea, wheezes, hemoptysis, stridor Gastrointestinal: Reports: nausea, vomiting. Denies: abdominal pain, diarrhea, constipation, hematemesis, melena, hematochezia Genitourinary: Denies: urgency, dysuria, frequency, hematuria Musculoskeletal: Denies: back pain, neck pain, arthralgia, myalgia Integumentary: Denies: rash, abrasion, lesions Neurological: Denies: headache, weakness, numbness, paresthesias, confusion, abnormal gait, vertigo Psychiatric: Denies: anxiety, depression, suicidal thoughts, homicidal thoughts , auditory hallucinations, visual hallucinations Endocrine: Denies: fatigue Hematological/Lymphatic: Denies: easy bleeding, easy bruising Allergic/Immunologic: Denies: facial swelling, urticaria Chest Pain PMH - Past Medical History Medical history: Reports: coronary artery disease, GERD, hyperlipidemia, hypertension, myocardial infarction, syncope Surgical history: Reports: angioplasty/stent, coronary bypass (CABG), other Psychiatric history: Reports: no psych history - Social History Smoking Status: Never smoker Alcohol use: Reports: none Drug use: Reports: none Physical Exam - General Limitations: no limitations General appearance: alert - Head Head exam: atraumatic, normocephalic, normal inspection - Eye Eye exam: Present: normal appearance, PERRL, EOMI - ENT ENT exam: normal exam, normal oropharynx, mucous membranes moist - Neck Neck exam: Present: normal inspection, full ROM, trachea midline - Chest Chest inspection: Present: normal inspection, symmetric chest wall rise - Respiratory Respiratory exam: Present: normal lung sounds bilaterally - Cardiovascular Cardiovascular exam: Present: regular rate, normal rhythm, normal heart sounds - Abdominal Exam Abdominal exam: Present: soft, Non-Tender. Absent: tenderness, distention, guarding, rebound, rigidity - Extremities Exam Extremities exam: Present: normal inspection, full ROM. Absent: tenderness, pedal edema - Expanded Lower Extremity Exam Neurovascular/Tendon exam: Absent: motor deficit, sensory deficit, tendon deficit Gait: not tested/not observed - Back Exam Back exam: Present: normal inspection, full ROM. Absent: tenderness - Neurological Exam Neurological exam: Present: alert, oriented X3 - Psychiatric Psychiatric exam: Present: normal affect, normal mood - Skin Skin exam: Present: warm, dry, intact, normal color Course - Reevaluation(s) Reevaluation #1: 81-year-old who is status post bypass surgery couple years ago required stenting of his right coronary artery several days ago who comes in with the development of chest pain that he says is similar to what he had prior to requiring stent. Troponin is negative. EKG shows no acute changes. Patient did have an episode of vomiting described as dark brown. This may represent coffee- ground emesis. The patient does take a lot of aspirin included in the differential would be ulcer disease. Time: 09:21 - Consultations Consultation #1: Discussed with , will consult. Time: 09:21 Consultation #2: Discussed Trini Kline MEDICAL PHYSIOLOGIST, admit. Time: 09:24 Vital Signs Temperature 97.4 F L 11/19/16 07:06 Pulse Rate 74 11/19/16 07:06 Respiratory Rate 20 11/19/16 07:06 Blood Pressure 170/77 11/19/16 07:06 O2 Sat by Pulse Oximetry 95 11/19/16 07:06 Temperature 97.4 F L 11/19/16 07:06 Pulse Rate 58 11/19/16 09:15 Respiratory Rate 16 11/19/16 09:15 Blood Pressure 160/92 11/19/16 09:15 O2 Sat by Pulse Oximetry 96 11/19/16 09:15 Oxygen Delivery Oxygen Delivery Room Air Chest Pain - Lab Data Result diagrams: 11/19/16 07:31 11/19/16 07:31 Lab Results 11/19/16 11/19/16 11/19/16 Range/Units 07:31 07:31 07:31 WBC 6.9 (4.3-11.1) K/mcL RBC 5.05 (4.19-5.50) M/mcL Hgb 15.2 D (12.9-16.9) g/dL Hct 44.1 (37.5-50.1) % MCV 87.3 (83.0-100.0) fL MCH 30.1 (28.0-33.3) pg MCHC 34.5 (31.6-35.5) g/dL RDW 12.3 (11.5-14.5) % Plt Count 207 (140-400) K/mcL MPV 10.7 (9.4-12.4) fL Immature Gran % 0.3 (0-4) % Seg Neutrophils % 73.4 % Lymphocytes % 11.0 % Monocytes % 11.2 % Eosinophils % 3.5 % Basophils % 0.6 % Neutrophils # 5.1 (1.6-8.9) K/mcL Lymphocytes # 0.8 (0.6-4.6) K/mcL Monocytes # 0.8 (0.0-1.3) K/mcL Eosinophils # 0.2 (0.0-0.6) K/mcL Basophils # 0.0 (0.0-0.2) K/mcL Immature Plt Fraction 6.5 H (1.1-6.1) % PT 12.6 H (9.4-12.1) Seconds INR 1.2 APTT 33.9 (26.0-36.0) Seconds Sodium 139 (136-145) mEq/L Potassium 3.8 (3.5-4.5) mEq/L Chloride 105 (98-109) mEq/L Carbon Dioxide 23 (19-29) mEq/L BUN 11 (8-26) mg/dL Creatinine 1.06 (0.72-1.25) mg/dL Est GFR ( Amer) > 60 (> 60) Est GFR (Non-Af Amer) > 60 (> 60) BUN/Creatinine Ratio 10 (6-26) Glucose 125 H (70-99) mg/dL Calculated Osmolality 289 (280-300) Calcium 10.1 (8.6-10.8) mg/dL Troponin I (0-0.03) ng/mL 11/19/16 Range/Units 07:31 WBC (4.3-11.1) K/mcL RBC (4.19-5.50) M/mcL Hgb (12.9-16.9) g/dL Hct (37.5-50.1) % MCV (83.0-100.0) fL MCH (28.0-33.3) pg MCHC (31.6-35.5) g/dL RDW (11.5-14.5) % Plt Count (140-400) K/mcL MPV (9.4-12.4) fL Immature Gran % (0-4) % Seg Neutrophils % % Lymphocytes % % Monocytes % % Eosinophils % % Basophils % % Neutrophils # (1.6-8.9) K/mcL Lymphocytes # (0.6-4.6) K/mcL Monocytes # (0.0-1.3) K/mcL Eosinophils # (0.0-0.6) K/mcL Basophils # (0.0-0.2) K/mcL Immature Plt Fraction (1.1-6.1) % PT (9.4-12.1) Seconds INR APTT (26.0-36.0) Seconds Sodium (136-145) mEq/L Potassium (3.5-4.5) mEq/L Chloride (98-109) mEq/L Carbon Dioxide (19-29) mEq/L BUN (8-26) mg/dL Creatinine (0.72-1.25) mg/dL Est GFR ( Amer) (> 60) Est GFR (Non-Af Amer) (> 60) BUN/Creatinine Ratio (6-26) Glucose (70-99) mg/dL Calculated Osmolality (280-300) Calcium (8.6-10.8) mg/dL Troponin I 0.02 (0-0.03) ng/mL - Radiology Data Radiology results reviewed: Yes I reviewed the patient's radiology results. Chest X-Ray 11/19/16 07:15 IMPRESSION: No acute cardiopulmonary process. D/ / 11/19/2016 08:13:32 Jefe Romero MD / earnomatteo Interpreting Provider: Jefe Romero MD - EKG Data EKG attestation: Yes I reviewed and interpreted this EKG. EKG shows normal: sinus rhythm Rate: normal Rhythm: NSR Interpretation: nonspecific ST-T wave changes Heart Score - Score History: Moderately Suspicious EKG: Non Specific repolarisation Disturbance Age: Greater than 65 Risk Factors: Equal/Greater than 3 risk factor or history of atherosclerotic disease Troponin: Less than normal limit HEART Score Total: 6
[2016-11-19 07:42] LABS: INR 1.2; Prothrombin Time 12.6 Seconds (9.4-12.1)
[2016-11-19 07:45] LABS: Activated Partial Thrombo Time 33.9 Seconds (26.0-36.0)
[2016-11-19 07:49] LABS: BUN/Creatinine Ratio 10 (6-26); Blood Urea Nitrogen 11 mg/dL (8-26); Calcium 10.1 mg/dL (8.6-10.8); Carbon Dioxide 23 mEq/L (19-29); Chloride 105 mEq/L (98-109); Glucose 125 mg/dL (70-99); Osmolality,Calculated 289 (280-300); Potassium 3.8 mEq/L (3.5-4.5); Sodium 139 mEq/L (136-145); eGFR For African Americans > 60 (> 60); eGFR For Non-African Americans > 60 (> 60)
[2016-11-19] MEDS ORDERED: Pantoprazole 40 MG VIAL IVP ONE (09:37)
[2016-11-19] MEDS ORDERED: Acetaminophen 325 MG TABLET PO PRN (11:23)
[2016-11-19] MEDS ORDERED: Ondansetron 4 MG/2 ML VIAL IVP PRN (11:23)
[2016-11-19] MEDS ORDERED: Naloxone 0.4 MG/ML INJ IVP PRN (11:23)
[2016-11-19] MEDS ORDERED: Nitroglycerin 0.4 MG TAB.SUBL SL PRN (11:26)
[2016-11-19] MEDS ORDERED: *HR* HYDROcodone/Acet 5/325 mg TABLET PO PRN (11:26)
--- NOTE | 2016-11-19 11:54 | Cardiology Consult Note ---
<Kelly Meyer Sylvia - Last Filed: 11/19/16 12:39> Date of Encounter: 11/19/16 Time of Encounter: 11:45 Assessment and Plan (1) Chest pain Current Visit: Yes Status: Acute Atypical chest pain in the setting of uncontrolled blood pressure and vomiting. Troponin negative. No ischemic ECG changes. Recent [facility] s/p PCI to prox and mid RCA--has not missed any doses of asa or brilinta. TTE shows preserved LV function. No further inpatient recommendations from a cardiac standpoint; suspect GI in etiology. Follow-up with Dr. Lincoln as scheduled. Qualifiers: Chest pain type: unspecified Qualified Code(s): R07.9 - Chest pain, unspecified (2) Hypertensive urgency Current Visit: Yes Status: Acute BP remains poorly controlled. Defer further inpatient mgmt to primary service. (3) CAD (coronary artery disease) Current Visit: Yes Status: Chronic Recent PCI to prox and mid RCA with PTCA/ABENA. EF preserved per TTE. Continue asa, statin, and betablocker. DAPT (asa + brilinta) uninterrupted for at least 1 year. Qualifiers: Coronary Disease-Associated Artery/Lesion type: bypass graft [place] vs. transplanted heart: [place] heart Associated angina: without angina Qualified Code(s): I25.810 - Atherosclerosis of coronary artery bypass graft(s) without angina pectoris Discussion w patient/family: The assessment and plan as outlined above was discussed with the patient and/or family members who expressed understanding and agreement. All questions were answered. Thank you for involving us in the care of your patient. Please call with any questions. The patient will be discussed and reviewed with Dr. Subramanian; changes to be made accordingly. History of Present Illness Consult date: 11/19/16 Requesting physician: Scooter Wiley Consult reason: Chest pain Chief complaint: chest pain History of present illness: Mr. Mcmullen is a 81 year old male PMH of CAD s/p 4vCABG and recent PCI, remote hx of severe pop, HTN, prior tobacco use, right subclavian stenosis, and HLD who presented to the ED with 1-day history midsternal to left sided chest discomfort, he has difficulty describing pain. Associated symptoms include uncontrolled blood pressure and nausea with multiple episodes of vomiting. He reports nothing worsens pain; however "getting up and moving around" improves chest discomfort. Of note, this is his third admission in the past week, recently admitted with near syncope d/t hypovolemia. States has fluctuating blood pressures at home. Prior cardiovascular studies: [facility] 11/13/16- showed 3/4 patent bypass grafts. S/p PCI to the prox and mid RCA with PTCA/ABENA. There was a remaining 60-70% stenosis in the ostial RCA. Medical management recommended. Collaterals from LC to RCA seen. SVG to RPDA occluded. \\ COLON-LAD patent, SVG to 2nd diagonal 60% stenosis, SVG to Ramus patent. TTE 02/13/2016: EF 60%. Normal LV size and function. Mild diastolic dysfunction. Dilated RV with normal function. No significant valvular dysfunction. Mild pulmonary hypertension, RVSP 36 mmHg. Pharmacological nuclear stress test 02/23/2016: Small sized, mild to moderate intensity, reversible perfusion defect in the basal to mid inferior segments suggestive of ischemia. Past Med Surg Social Fam HX - Past Medical History Attestation: Yes The following information was validated with the patient. Source: patient, old records reviewed Medical history: coronary artery disease, GERD, hyperlipidemia, hypertension, myocardial infarction, syncope Psychiatric history: no psych history - Past Surgical History Surgical History: angioplasty/stent, cholecystectomy, coronary bypass (CABG), herniorrhaphy, other - Social History Smoking Status: Former smoker Smokeless Tobacco Status: No Alcohol use: none Drug use: none - Family History Father Living Status: Hx Family Cardiac Disorders: Yes (heart attack) Hx Family Neurologic Disorders: Yes (CVA) Mother Living Status: Hx Family Cardiac Disorders: No Hx Family Respiratory Disorders: No Hx Family Cancer: No Hx Family GI Disorders: No Hx Family Endocrine Disorder: No Hx Family Neuromuscular Disorders: No Hx Family Neurologic Disorders: No Hx Family HEENT Disorders: No Hx Family Autoimmune Disorders: No Medications and Allergies Aspirin 81 mg PO DAILY 04/29/15 [History] Isosorbide MONOnitrate (24 HR) [Imdur] 60 mg PO DAILY 04/29/15 [History] Ranitidine HCl [Zantac] 150 mg PO BID 04/29/15 [History] Simvastatin [Zocor] 20 mg PO HS 04/29/15 [History] Amlodipine [Norvasc] 5 mg PO DAILY 11/13/16 [History] Metoprolol XL (24 HR) Succ [Toprol Xl] 12.5 mg PO BID 11/13/16 [History] Mirtazapine 7.5 mg PO HS 11/13/16 [History] Nitroglycerin [Nitrostat] 0.4 mg SL Q5M PRN 11/13/16 [History] HYDROcodone/Acet 5/325 mg [[place] 5-325 mg] 1 tab PO Q6H PRN #15 tab 11/15/16 [Rx ] Ticagrelor [Brilinta] 90 mg PO BID #60 tablet 11/15/16 [Rx] Triamcinolone Acet 0.1% CRM [Kenalog] 1 appl TP BID 11/16/16 [History] Lisinopril [Zestril] 10 mg PO DAILY #30 tablet 11/17/16 [Rx] Allergies Penicillins [PCN] Adverse Reaction (Verified 11/19/16 10:10) See Comments All Systems Review: A 10-system review of systems was performed and is negative for pertinent findings except as documented above in the HPI. - Cardiovascular Cardiovascular: as per HPI Physical Examination Vital Signs, Last 4 Hours Temp Pulse Resp BP Pulse Ox 11/19/16 11:05 97.8 F 65 16 175/82 95 11/19/16 11:00 16 156/82 11/19/16 10:30 66 16 156/74 96 General: Conversant, No Apparent Distress HEENT: Atraumatic, Normocephaly, Mucus Membranes Moist Cardiac: Reg Rate and Rhythm, Normal S1 and S2 Lungs: Normal Breath Sounds Neuro: Alert and responsive Abdomen: Soft Skin: No rashes noted on visualized skin Musculoskeletal: No Chest Wall Tenderness Extremities: No Edema, Normal Pulses Results 11/19/16 07:31 11/19/16 07:31 Active Medications Acetaminophen (Tylenol) 650 mg PO Q6HR PRN PRN Reason: Mild Pain (1-3) Stop: 05/21/17 11:24 Acetaminophen/Hydrocodone Bitart ([place] 5-325 Mg) 1 tab PO Q6H PRN PRN Reason: Pain Stop: 05/21/17 11:27 Amlodipine Besylate (Norvasc) 5 mg PO DAILY ALFREDO PRN Reason: Protocol Stop: 05/21/17 11:31 Aspirin (Aspirin) 81 mg PO DAILY [facility] Stop: 05/22/17 09:01 Famotidine (Pepcid) 20 mg PO BID [facility] Stop: 05/21/17 21:01 Isosorbide Mononitrate (Imdur) 60 mg PO DAILY [facility] Stop: 05/22/17 09:01 Lisinopril (Zestril) 10 mg PO DAILY ALFREDO PRN Reason: Protocol Stop: 05/22/17 09:01 Metoprolol Succinate (Toprol Xl) 12.5 mg PO BID [facility] Stop: 05/21/17 11:31 Mirtazapine (Remeron) 7.5 mg PO HS [facility] Stop: 05/21/17 21:01 Naloxone HCl (Narcan) 0.4 mg IVP Q2MIN PRN PRN Reason: Opioid Reversal Stop: 05/21/17 11:24 Nitroglycerin (Nitroglycerin) 0.4 mg SL Q5M PRN PRN Reason: Chest Pain Stop: 05/21/17 11:27 Ondansetron HCl (Zofran) 4 mg IVP Q8HR PRN PRN Reason: Nausea And Vomiting Stop: 05/21/17 11:24 Simvastatin (Zocor) 20 mg PO HS ALFREDO PRN Reason: Protocol Stop: 05/21/17 21:01 Ticagrelor (Brilinta) 90 mg PO BID [facility] Stop: 05/21/17 11:31 Triamcinolone Acetonide (Kenalog) 1 appl TP BID ALFREDO PRN Reason: Protocol Stop: 05/21/17 21:01 Impressions Chest X-Ray 11/19/16 07:15 IMPRESSION: No acute cardiopulmonary process. D/ / 11/19/2016 08:13:32 Jefe Romero MD / formerly [facility] Interpreting Provider: Jefe Romero MD - Imaging and Cardiology Echo: report reviewed Cardiac cath: report reviewed - EKG Interpretation EKG results cardiology: personally reviewed Consult Discharge Plan - Plan Referrals: Rebekah Ogden CNP [Primary Care Provider] - 11/28/16 3:00 pm <Kirsten Subramanian - Last Filed: 11/19/16 17:22> Assessment and Plan Discussion w patient/family: The assessment and plan as outlined above was discussed with the patient and/or family members who expressed understanding and agreement. All questions were answered. Thank you for involving us in the care of your patient. Please call with any questions. History of Present Illness History of present illness: Mr. Mcmullen is a 81 year old male All Systems Review: A 10-system review of systems was performed and is negative for pertinent findings except as documented above in the HPI. Physical Examination Vital Signs, Last 4 Hours Temp Pulse Resp BP Pulse Ox 11/19/16 15:25 98.1 F 67 16 168/79 96 Results 11/19/16 07:31 11/19/16 07:31 Lab Results 11/19/16 14:18 Troponin I 0.01 - Attending Attestation I examined this patient and my medical decision-making was reviewed with the PAINTER HELPER/PA/Advanced Practice Nurse/Resident Physician. I agree with the documented findings, disposition and treatment plan. Mr. Mcmullen presents with atypical chest pain, no ECG changes and negative troponin in setting of vomiting. Suspect a GI etiology. No further cardiac recommendations at this time. We will sign off.
[2016-11-19] MEDS: Metoprolol XL (24 HR) Succ 25 MG TAB.ER.24H PO SCH ×2 (12:46→20:18)
[2016-11-19] MEDS: *HR* Ticagrelor 90 MG TABLET PO SCH ×2 (12:46→20:18)
[2016-11-19] MEDS: amLODIPine 5 MG TABLET PO SCH (12:46)
--- NOTE | 2016-11-19 15:20 | Internal Med History&Physical ---
<Iker Pozo - Last Filed: 11/19/16 18:29> Internal Medicine - H&P: HPI History of present illness: Mr. Mcmullen is a 81 year old male Internal Medicine - H&P: Meds Aspirin 81 mg PO DAILY 04/29/15 [History] Isosorbide MONOnitrate (24 HR) [Imdur] 60 mg PO DAILY 04/29/15 [History] Ranitidine HCl [Zantac] 150 mg PO BID 04/29/15 [History] Simvastatin [Zocor] 20 mg PO HS 04/29/15 [History] Amlodipine [Norvasc] 5 mg PO DAILY 11/13/16 [History] Metoprolol XL (24 HR) Succ [Toprol Xl] 12.5 mg PO BID 11/13/16 [History] Mirtazapine 7.5 mg PO HS 11/13/16 [History] Nitroglycerin [Nitrostat] 0.4 mg SL Q5M PRN 11/13/16 [History] HYDROcodone/Acet 5/325 mg [[place] 5-325 mg] 1 tab PO Q6H PRN #15 tab 11/15/16 [Rx ] Ticagrelor [Brilinta] 90 mg PO BID #60 tablet 11/15/16 [Rx] Triamcinolone Acet 0.1% CRM [Kenalog] 1 appl TP BID 11/16/16 [History] Lisinopril [Zestril] 10 mg PO DAILY #30 tablet 11/17/16 [Rx] Allergies Penicillins [PCN] Adverse Reaction (Verified 11/19/16 10:10) See Comments All Systems PM: A 10-system review of systems was performed and is negative for pertinent findings except as documented above in the HPI. - Constitutional Vitals: Temp Pulse Resp BP Pulse Ox 98.1 F 67 16 168/79 96 11/19/16 15:25 11/19/16 15:25 11/19/16 15:25 11/19/16 15:25 11/19/16 15:25 Internal Med - H&P Results - Labs CBC & Chem 7: 11/19/16 07:31 11/19/16 07:31 Labs: Cardiac Enzymes 11/19/16 Range/Units 14:18 Troponin I 0.01 (0-0.03) ng/mL - Attending Attestation I examined this patient and my medical decision-making was reviewed with the Advanced Practice Nurse on 11/19/16. I agree with the documented findings, disposition and treatment plan as described except to the extent set forth below. Mr. Mcmullen is a 81 y/o male just discharged from the hospital who presented to ED with chest pain. He is s/p 3 cardiac stents last week. Currently he is asymptomatic and is eating lunch. No dyspnea. No GI issues. Exam Alert. Comfortable Heart reg - distant Lungs clear Abd soft Mucus membranes dry I/P 1. Chest pain 2. CAD s/p recent stents Further diagnoses and plan as outlined above in H&P. <Trini Kline - Last Filed: 11/19/16 23:25> Date of Encounter: 11/19/16 Time of Encounter: 10:30 Assessment and Plan (1) Chest pain Current visit: Yes Status: Acute Patient status post PCI to proximal mid RCA with PTCA/ABENA. Patient is on Proventil into an aspirin. First set cardiac enzymes are negative. We will continue cycle cardiac enzymes. 2 continue with cardiac monitoring EKG 3 we will consult cardiology. 4 outpatient follow-up with cardiology Qualifiers: Chest pain type: unspecified Qualified Code(s): R07.9 - Chest pain, unspecified (2) Hypertensive urgency Current visit: Yes Status: Acute 1 we will continue with all medications goal is to maintain systolic less than 140 (3) CAD (coronary artery disease) Current visit: Yes Status: Chronic 1 continue with beta loida statin aspirin brilinta [place] Qualifiers: Coronary Disease-Associated Artery/Lesion type: bypass graft [place] vs. transplanted heart: [place] heart Associated angina: without angina Qualified Code(s): I25.810 - Atherosclerosis of coronary artery bypass graft(s) without angina pectoris Internal Medicine - H&P: HPI Chief complaint: Chest pain Admitted From: Emergency Dept Plans for Post Hospital Care: Home History of present illness: Mr. Mcmullen is a 81 year old male past medical history of coronary disease GERD hyperlipidemia hypertension myocardial infarction and syncope status post stents as well as coronary artery bypass graft in the past. According to patient last night while he was sitting in his chair he is experiencing left- sided chest pressure which was 10/10 which was nonradiating there were no aggravating or relieving factors. He did have an episode of nausea with vomiting which he describes as brown emesis of undigested food. He had another episode of vomiting this a.m. and again experienced chest pressure. Approximately a week ago the patient underwent stent placement and he is on Brilinta. He has an appointment to see Dr. Lincoln next week. He denies any fevers chills abdominal pain sick contacts coughs He presented to the ER with the above complaints. [facility] records first set cardiac troponins are negative EKG with no ischemic changes rest of lab work was unremarkable he was admitted for further work up and evaluation. Presently the patient denies any chest pain or discomfort. He is hemodynamically stable at this time. I reviewed this case with Dr. Pozo who agrees with plan Past Med Surg Social Fam HX - Past Medical History Medical history: coronary artery disease, GERD, hyperlipidemia, hypertension, myocardial infarction, syncope Psychiatric history: no psych history - Past Surgical History Surgical History: angioplasty/stent, cholecystectomy, coronary bypass (CABG), herniorrhaphy, other - Social History Smoking Status: Former smoker Smokeless Tobacco Status: No Alcohol use: none Drug use: none - Family History Father Living Status: Hx Family Cardiac Disorders: Yes (heart attack) Hx Family Neurologic Disorders: Yes (CVA) Mother Living Status: Hx Family Cardiac Disorders: No Hx Family Respiratory Disorders: No Hx Family Cancer: No Hx Family GI Disorders: No Hx Family Endocrine Disorder: No Hx Family Neuromuscular Disorders: No Hx Family Neurologic Disorders: No Hx Family HEENT Disorders: No Hx Family Autoimmune Disorders: No All Systems PM: A 10-system review of systems was performed and is negative for pertinent findings except as documented above in the HPI. - Constitutional Constitutional: no chills, no fever(s), no night sweats - Cardiovascular Cardiovascular ROS IM: chest pain - Respiratory Respiratory: no cough, no dyspnea, no wheezing, no excessive phlegm production - Gastrointestinal Gastrointestinal: nausea, vomiting - Musculoskeletal Musculoskeletal ROS IM: no numbness, no tingling - Integumentary Integumentary IM: no rash, no unusual bruising - Neurological Neurological ROS: no confusion, no convulsions, no focal weakness, no numbness, no tingling, no tremor(s) - Hematologic/Lymphatic Hematologic/Lymphatic: no easy bruising - Constitutional Vitals: Temp Pulse Resp BP Pulse Ox 97.8 F 65 16 175/82 95 11/19/16 11:05 11/19/16 11:05 11/19/16 11:05 11/19/16 11:05 11/19/16 11:05 General appearance: Present: A&O X 3, answers questions appropriately - Head Head exam: Present: atraumatic, normocephalic - Eye Eye exam: Present: PERRL, conjuntiva pink, sclera anicteric Pupils: Present: PERRL - Respiratory Respiratory exam: Present: CTAB. Absent: accessory muscle use, rales, rhonchi, wheezes - Cardiovascular Cardiovascular exam: Present: RRR, +S1, +S2. Absent: diastolic murmur, gallop, rubs, systolic murmur - GI/Abdominal GI/Abdominal exam: Present: normal bowel sounds, soft, no peritoneal signs. Absent: distended, tenderness - Extremities Exam Extremities exam: Present: warm, radial pulses palpable and symetrical. Absent : calf tenderness, cyanotic, pedal edema - Neurological Exam Neurological exam: Present: CN II-XII intact, oriented X3, no focal deficits. Absent: pronater drift, facial droop, speech deficit Internal Med - H&P Results - Labs CBC & Chem 7: 11/19/16 07:31 11/19/16 07:31 Labs: Cardiac Enzymes 11/19/16 Range/Units 14:18 Troponin I 0.01 (0-0.03) ng/mL - EKG Data EKG shows normal: sinus rhythm - EKG Data Prior EKG available for review: yes When compared to previous EKG: there is no significant change - Diagnostic Studies Chest x-ray Additional comments: Chest X-Ray 11/19/16 07:15 IMPRESSION: No acute cardiopulmonary process. D/ / 11/19/2016 08:13:32 Jefe Romero MD / [facility] Interpreting Provider: Jefe Romero MD
[2016-11-19] MEDS: Mirtazapine 15 MG TABLET PO SCH ×2 (19:26→20:18)
[2016-11-19] MEDS: Famotidine 20 MG TABLET PO SCH (20:18)
[2016-11-19] MEDS: Triamcinolone Acet 0.1% CRM 15 GM TUBE TP SCH (20:22)
[2016-11-19] MEDS ORDERED: Mirtazapine 15 MG TABLET PO SCH (21:00)
[2016-11-20 03:49] LABS: Basophils % 0.6 %; Eosinophils # 0.2 K/mcL (0.0-0.6); Eosinophils % 3.6 %; Hematocrit 43.8 % (37.5-50.1); Hemoglobin 14.9 g/dL (12.9-16.9); Immature Granulocytes % 0.1 % (0-4); Lymphocytes % 14.7 %; Mean Corpuscular Hemoglobin 30.3 pg (28.0-33.3); Mean Platelet Volume 11.2 fL (9.4-12.4); Monocytes # 0.9 K/mcL (0.0-1.3); Monocytes % 12.6 %; Neutrophils # 4.6 K/mcL (1.6-8.9); Platelet Count 202 K/mcL (140-400); Red Blood Count 4.92 M/mcL (4.19-5.50); Red Cell Distribution Width 12.5 % (11.5-14.5); Segmented Neutrophils % 68.4 %
[2016-11-20 04:02] LABS: BUN/Creatinine Ratio 9 (6-26); Blood Urea Nitrogen 10 mg/dL (8-26); Calcium 9.5 mg/dL (8.6-10.8); Carbon Dioxide 22 mEq/L (19-29); Chloride 107 mEq/L (98-109); Glucose 110 mg/dL (70-99); Osmolality,Calculated 286 (280-300); Potassium 3.7 mEq/L (3.5-4.5); Sodium 138 mEq/L (136-145); eGFR For African Americans > 60 (> 60); eGFR For Non-African Americans > 60 (> 60)
[2016-11-20] MEDS: *HR* Ticagrelor 90 MG TABLET PO SCH (07:35)
[2016-11-20] MEDS: Metoprolol XL (24 HR) Succ 25 MG TAB.ER.24H PO SCH (07:35)
[2016-11-20] MEDS: Famotidine 20 MG TABLET PO SCH (07:35)
[2016-11-20] MEDS: amLODIPine 5 MG TABLET PO SCH (07:35)
[2016-11-20] MEDS: Triamcinolone Acet 0.1% CRM 15 GM TUBE TP SCH (07:36)
--- NOTE | 2016-11-20 08:24 | Electrocardiograph Report ---
[address] [address] Test Date: 2016-11-19 Pat Name: Inocencio Mcmullen Department: 105 Room: 3B Gender: M Shed Boss: : 1935 Requested By: Scooter Wiley Order Number: [id number] Reading MD: Anjel Flores MD Measurements Intervals [place] Rate: 67 P: 32 [place]: 168 QRS: 39 QRSD: 87 T: 81 QT: 421 QTc: 437 Interpretive Statements SINUS RHYTHM NONSPECIFIC ST \T\ T-WAVE ABNORMALITY Electronically Signed On 11-20-2016 8:22:44 EDT by Anjel Flores MD
[2016-11-20] MEDS ORDERED: Aspirin 81 MG TAB.CHEW PO SCH (09:00)
[2016-11-20] MEDS ORDERED: Isosorbide MONOnitrate (24 HR) 60 MG TAB.ER.24H PO SCH (09:00)
[2016-11-20 10:48] VITALS: BP 155/82
--- NOTE | 2016-11-20 13:09 | Discharge Summary ---
Date of Encounter: 11/20/16 Time of Encounter: 09:10 - Discharge Diagnosis (1) Chest pain Priority: Primary Status: Acute Comments: Pt denies chest pain. He states that he has not had chest pain since yesterday after eating meal. Pt states that he had nausea and vomiting after eating Drewtracy Hinestti yesterday and also denies that since yesterday. Pt with recent cardiac stent placement on 11/13. Pt was seen by cardiology, who believes that pain may acutally be GI in nature. His lungs are clear and he denies pain, n/v, at this time, he also denies SOB. His troponins were negative, EKG without ischemia, NSR. He had a TTE last visit that shows preserved LV function from prior. Pt is slightly tender to palpation in epigastric area. Patient has appointment with primary care physician today at 1600. Qualifiers: Chest pain type: unspecified Qualified Code(s): R07.9 - Chest pain, unspecified (2) GERD (gastroesophageal reflux disease) Priority: Secondary Status: Chronic Comments: Patient has history of GERD. States that he has nausea vomiting and burning to upper chest after eating. Patient states the last time he had it was yesterday after eating Drew Armijoi. apparently told ER physician that he had coffee-ground emesis, however, she denies this to me during exam. His hemoglobin has remained stable and within normal limits throughout visit. He denies pedro blood in his emesis or stool. He denies any since. He does take omeprazole and Pepcid daily. He does have an appointment with his primary care physician at 1600 today, and states that he would like to speak with her about an outpatient EGD or medication change for treatment. Qualifiers: Esophagitis presence: esophagitis presence not specified Qualified Code(s) : K21.9 - Gastro-esophageal reflux disease without esophagitis (3) CAD (coronary artery disease) Priority: Secondary Status: Chronic Comments: Patient had recent PCI to proximal and mid RCA with stent placement on November 13. Continue aspirin, statin, and his beta loida. Patient will continue Brilinta , also. Qualifiers: Coronary Disease-Associated Artery/Lesion type: bypass graft [place] vs. transplanted heart: [place] heart Associated angina: without angina Qualified Code(s): I25.810 - Atherosclerosis of coronary artery bypass graft(s) without angina pectoris (4) Hypertensive urgency Priority: Secondary Status: Chronic Comments: Last blood pressure 155/82. Chronic. Continue home medications. - Discharge Medications Home Medications: Aspirin 81 mg PO DAILY 04/29/15 [History] Isosorbide MONOnitrate (24 HR) [Imdur] 60 mg PO DAILY 04/29/15 [History] Ranitidine HCl [Zantac] 150 mg PO BID 04/29/15 [History] Simvastatin [Zocor] 20 mg PO HS 04/29/15 [History] Amlodipine [Norvasc] 5 mg PO DAILY 11/13/16 [History] Metoprolol XL (24 HR) Succ [Toprol Xl] 12.5 mg PO BID 11/13/16 [History] Mirtazapine 7.5 mg PO HS 11/13/16 [History] Nitroglycerin [Nitrostat] 0.4 mg SL Q5M PRN 11/13/16 [History] HYDROcodone/Acet 5/325 mg [Verden 5-325 mg] 1 tab PO Q6H PRN #15 tab 11/15/16 [Rx ] Ticagrelor [Brilinta] 90 mg PO BID #60 tablet 11/15/16 [Rx] Triamcinolone Acet 0.1% CRM [Kenalog] 1 appl TP BID 11/16/16 [History] Lisinopril [Zestril] 10 mg PO DAILY #30 tablet 11/17/16 [Rx] Allergies/Adverse Reactions: Allergies Penicillins [PCN] Adverse Reaction (Verified 11/19/16 10:10) See Comments Procedures/tests Complete & Pending: Procedures Performed prior 72 hours Category Date Time Status ECG 12 lead ECG [ECG] AM 0600 Y 11/20/16 06:00 Ordered Date of admission: 11/19/16 10:17 Primary care physician: Rebekah Ogden CNP Consults: Cardiology Discharging clinician: Fatoumata Dye Anticipated date of discharge: 11/20/16 - Patient Status Disposition: Home, Self-Care Condition: Good Functional capacity at discharge: independent ambulation Overall status at discharge: patient is progressing back to baseline - Discharge Instructions Follow Up With: Rebekah Ogden CNP [Primary Care Provider] - 11/28/16 3:00 pm Latonia,Osmin M, DO [Partnered Physician] - 12/05/16 12:15 pm Additional Instructions: Please follow-up with your primary care physician today at 4:00 as planned. Continue your home medications. Please speak with Arielle Ogden regarding outpatient EGD or medication changes for what you feel are worsening GERD symptoms. Please return for any additional concerns or problems, or if your pain returns. - Diet and Activity Activity: increase activity as tolerated, resume usual activities as tolerated Diet: advance to your usual diet Hospital course: Mr. Mcmullen is a 81 year old male who presented to the emergency department on November 19 with complaint of chest pain. He told the ER physician the pain was a similar to what he had prior to having his cardiac stents done on November 13, it was left-sided pressure, 10 out of 10, nonradiating, and nothing made it better. His also states that he had an episode of vomiting with some coffee grounds however during my assessment she denies this. He does take Brilinta. Patient has had echo, stress, and PCI, so none of this was repeated during this stay. Patient denies nausea and vomiting other than yesterday after attempting to eat Drwe Marzetti that a that he states was brown. Patient denies any chest pain today, no nausea,vomiting, or diarrhea, denies shortness of breath as well. He is slightly tender to palpation in epigastric area and states that he has a long history of GERD. He takes Zantac 150 mg twice a day and he will continue this on discharge. Patient states the pain that he came for is gone. He was seen by cardiology and cleared as they believe that it is more GI in nature than cardiac. Patient has an appointment with his primary care physician at 1600 today, and he will speak with her regarding outpatient EGD. He has appointment with Dr. Lincoln next week. She is stable for discharge. - Time Spent with Patient Total time spent providing and/or coordinating discharge services: - Constitutional Vitals: Temp Pulse Resp BP Pulse Ox 98.1 F 68 17 155/82 96 11/20/16 10:48 11/20/16 10:48 11/20/16 10:48 11/20/16 10:48 11/20/16 10:48 General appearance: Present: cooperative, A&O X 3, pleasant, answers questions appropriately - Head Head exam: Present: normal inspection - Eye Eye exam: Present: normal appearance, conjuntiva pink - ENT ENT exam: Present: mucous membranes moist, normal exam - Neck Neck exam general surgery: Present: normal inspection. Absent: lymphadenopathy , tenderness - Respiratory Respiratory exam: Present: CTAB. Absent: chest wall tenderness, decreased breath sounds, respiratory distress, rhonchi, stridor, wheezes - Cardiovascular Cardiovascular exam: Present: RRR, +S1, +S2. Absent: diastolic murmur, systolic murmur - GI/Abdominal GI/Abdominal exam: Present: normal bowel sounds, soft. Absent: hepatomegaly, tenderness - Extremities Exam Extremities exam: Present: full ROM, normal capillary refill, normal inspection. Absent: pedal edema, tenderness - Neurological Exam Neurological exam: Present: alert, oriented X3. Absent: no focal deficits
== END 2016-11-20 14:00 | disposition home or self-care (01) ==
LOC: EMEROO 07:02 → 3BNU 07:02
PROVIDERS: ADMIT Nurse Practitioner Acute Care; ATTEND Registered Nurse

== ENCOUNTER 2017-08-06 19:12 | Observation (INO) ==
[2017-08-06] MEDS ORDERED: Aspirin 81 MG TAB.CHEW PO ONE (19:19)
--- NOTE | 2017-08-06 19:22 | Emergency Department Note ---
Disposition Clinical Impression: Chest pain Qualifiers: Chest pain type: unspecified Qualified Code(s): R07.9 - Chest pain, unspecified Disposition: Admitted As Inpatient Condition: Fair Forms: ED Satisfaction Letter Time of Disposition: 21:01 Chest Pain HPI - General Chief Complaint: ED Chest Pain Stated Complaint: chest pain Time Seen by Provider: 08/06/17 19:19 Source: patient Limitations: no limitations Vital Signs Reviewed: Yes Nursing Notes Reviewed: Yes - History of Present Illness HPI Narrative: 82-year-old who arrives complaining of chest pain. Patient's had chest pain intermittently for the last 2-3 days. Patient does have a history of previous bypass surgery and stents. The patient has been taking nitroglycerin and his pain will improve and then the pain will return. Pt complaint: chest pain Onset (ago): Just X [employer] Duration: intermittent Onset: during rest Pain Location: left chest Severity: moderate Severity scale (1-10): 7 Quality: tightness, aching, heaviness Pain Radiation: none Improves with: nitroglycerin Worsens with: nothing Associated symptoms: Denies: nausea, vomiting Treatments prior to arrival chest pain: nitroglycerin - Related Data Home Medications Medication Instructions Recorded Confirmed Aspirin 81 mg PO DAILY 04/29/15 08/06/17 Isosorbide MONOnitrate (24 HR) 60 mg PO DAILY 04/29/15 08/06/17 [Imdur] Ranitidine HCl [Zantac] 150 mg PO BID 04/29/15 08/06/17 Simvastatin [Zocor] 20 mg PO HS 04/29/15 08/06/17 Metoprolol XL (24 HR) Succ [Toprol 12.5 mg PO BID 11/13/16 08/06/17 Xl] Mirtazapine 7.5 mg PO HS 11/13/16 08/06/17 Nitroglycerin [Nitrostat] 0.4 mg SL Q5M PRN 11/13/16 08/06/17 amLODIPine [Norvasc] 5 mg PO DAILY 11/13/16 08/06/17 Triamcinolone Acet 0.1% CRM 1 appl TP BID 11/16/16 08/06/17 [Kenalog] Clopidogrel [Plavix] 75 mg PO DAILY 08/06/17 08/06/17 Previous Rx's Medication Instructions Recorded Lisinopril [Zestril] 10 mg PO DAILY #30 tablet 11/17/16 HydrOXYzine 10 mg PO TID PRN #20 tablet 03/16/17 Allergies Allergy/AdvReac Type Severity Reaction Status Date / Time Penicillins [PCN] AdvReac See Verified 08/06/17 20:37 Comments All systems ED: reviewed and negative except as stated. Constitutional: Denies: fever, chills, weakness, weight change Eyes: Denies: eye pain, eye discharge, vision change ENT ED: Denies: ear pain, throat pain, dental pain, hearing loss, epistaxis, congestion, dysphagia Cardiovascular: Reports: chest pain. Denies: palpitations, dyspnea on exertion , edema, syncope Respiratory: Denies: cough, dyspnea, wheezes, hemoptysis, stridor Gastrointestinal: Denies: abdominal pain, nausea, vomiting, diarrhea, constipation, hematemesis, melena, hematochezia Genitourinary: Denies: urgency, dysuria, frequency, hematuria Musculoskeletal: Denies: back pain, neck pain, arthralgia, myalgia Integumentary: Denies: rash, abrasion, lesions Neurological: Denies: headache, weakness, numbness, paresthesias, confusion, abnormal gait, vertigo Psychiatric: Denies: anxiety, depression, suicidal thoughts, homicidal thoughts , auditory hallucinations, visual hallucinations Endocrine: Denies: fatigue Hematological/Lymphatic: Denies: easy bleeding, easy bruising Allergic/Immunologic: Denies: facial swelling, urticaria Chest Pain PMH - Past Medical History Medical history: Reports: coronary artery disease, GERD, hyperlipidemia, hypertension, myocardial infarction, syncope Surgical history: Reports: angioplasty/stent, cholecystectomy, coronary bypass ( CABG), herniorrhaphy, other Psychiatric history: Reports: no psych history - Social History Smoking Status: Former smoker Alcohol use: Reports: none Drug use: Reports: none Physical Exam - General Limitations: no limitations General appearance: alert - Head Head exam: atraumatic, normocephalic, normal inspection - Eye Eye exam: Present: normal appearance, PERRL, EOMI - ENT ENT exam: normal exam, normal oropharynx, mucous membranes moist - Neck Neck exam: Present: normal inspection, full ROM, trachea midline - Chest Chest inspection: Present: normal inspection, symmetric chest wall rise - Respiratory Respiratory exam: Present: normal lung sounds bilaterally - Cardiovascular Cardiovascular exam: Present: regular rate, normal rhythm, normal heart sounds - Abdominal Exam Abdominal exam: Present: soft, Non-Tender. Absent: tenderness, distention, guarding, rebound, rigidity - Extremities Exam Extremities exam: Present: normal inspection, full ROM. Absent: tenderness, pedal edema - Expanded Lower Extremity Exam Neurovascular/Tendon exam: Absent: motor deficit, sensory deficit, tendon deficit Gait: observed and normal - Back Exam Back exam: Present: normal inspection, full ROM. Absent: tenderness - Neurological Exam Neurological exam: Present: alert, oriented X3 - Psychiatric Psychiatric exam: Present: normal affect, normal mood - Skin Skin exam: Present: warm, dry, intact, normal color Course - Reevaluation(s) Reevaluation #1: [age]-year-old whose had chest pain off and on for the last couple of days gets better with nitroglycerin. We did give him nitroglycerin here in the emergency department he did improve. Initial troponin is negative chest x-rays clear EKG that shows no acute change patient will be admitted for further evaluation and treatment. Time: 21:00 - Consultations Consultation #1: Discussed with Dr. Yu, admit. Time: 21:00 Vital Signs Temperature 97.6 F 08/06/17 19:15 Pulse Rate 69 08/06/17 19:15 Respiratory Rate 20 08/06/17 19:15 Blood Pressure 173/75 08/06/17 19:15 O2 Sat by Pulse Oximetry 97 08/06/17 19:15 Temperature 97.6 F 08/06/17 19:15 Pulse Rate 66 08/06/17 20:29 Respiratory Rate 16 08/06/17 20:29 Blood Pressure 157/82 08/06/17 20:29 O2 Sat by Pulse Oximetry 96 08/06/17 20:29 Oxygen Delivery Oxygen Delivery Room Air Chest Pain - Lab Data Result diagrams: 08/06/17 19:44 08/06/17 19:44 Lab Results 08/06/17 08/06/17 08/06/17 Range/Units 19:44 19:44 19:44 WBC 6.8 (4.3-11.1) K/mcL RBC 4.70 (4.19-5.50) M/mcL Hgb 14.2 (12.9-16.9) g/dL Hct 42.1 (37.5-50.1) % MCV 89.6 (83.0-100.0) fL MCH 30.2 (28.0-33.3) pg MCHC 33.7 (31.6-35.5) g/dL RDW 11.9 (11.5-14.5) % Plt Count 200 (140-400) K/mcL MPV 10.8 (9.4-12.4) fL Immature Gran % 0.3 (0-4) % Seg Neutrophils % 67.0 % Lymphocytes % 17.5 % Monocytes % 11.3 % Eosinophils % 2.9 % Basophils % 1.0 % Neutrophils # 4.6 (1.6-8.9) K/mcL Lymphocytes # 1.2 (0.6-4.6) K/mcL Monocytes # 0.8 (0.0-1.3) K/mcL Eosinophils # 0.2 (0.0-0.6) K/mcL Basophils # 0.1 (0.0-0.2) K/mcL PT 11.7 (9.4-12.1) Seconds INR 1.1 APTT 32.3 (26.0-36.0) Seconds Sodium 136 (136-145) mEq/L Potassium 3.9 (3.5-4.5) mEq/L Chloride 102 (98-109) mEq/L Carbon Dioxide 25 (19-29) mEq/L BUN 15 (8-26) mg/dL Creatinine 1.05 (0.72-1.25) mg/dL Est GFR ( Amer) > 60 (> 60) Est GFR (Non-Af Amer) > 60 (> 60) BUN/Creatinine Ratio 14 (6-26) Glucose 106 H (70-99) mg/dL Calculated Osmolality 283 (280-300) Calcium 8.9 (8.6-10.8) mg/dL Troponin I (0-0.03) ng/mL 08/06/17 Range/Units 19:44 WBC (4.3-11.1) K/mcL RBC (4.19-5.50) M/mcL Hgb (12.9-16.9) g/dL Hct (37.5-50.1) % MCV (83.0-100.0) fL MCH (28.0-33.3) pg MCHC (31.6-35.5) g/dL RDW (11.5-14.5) % Plt Count (140-400) K/mcL MPV (9.4-12.4) fL Immature Gran % (0-4) % Seg Neutrophils % % Lymphocytes % % Monocytes % % Eosinophils % % Basophils % % Neutrophils # (1.6-8.9) K/mcL Lymphocytes # (0.6-4.6) K/mcL Monocytes # (0.0-1.3) K/mcL Eosinophils # (0.0-0.6) K/mcL Basophils # (0.0-0.2) K/mcL PT (9.4-12.1) Seconds INR APTT (26.0-36.0) Seconds Sodium (136-145) mEq/L Potassium (3.5-4.5) mEq/L Chloride (98-109) mEq/L Carbon Dioxide (19-29) mEq/L BUN (8-26) mg/dL Creatinine (0.72-1.25) mg/dL Est GFR ( Amer) (> 60) Est GFR (Non-Af Amer) (> 60) BUN/Creatinine Ratio (6-26) Glucose (70-99) mg/dL Calculated Osmolality (280-300) Calcium (8.6-10.8) mg/dL Troponin I 0.01 (0-0.03) ng/mL - EKG Data EKG attestation: Yes I reviewed and interpreted this EKG. EKG shows normal: sinus rhythm Rate: normal Rhythm: NSR Interpretation: no acute changes Heart Score - Score History: Highly Suspicious EKG: Non Specific repolarisation Disturbance Age: Greater than 65 Risk Factors: Equal/Greater than 3 risk factor or history of atherosclerotic disease Troponin: Less than normal limit HEART Score Total: 7
[2017-08-06] MEDS ORDERED: Nitroglycerin 1 INCH/GM PACKET TP ONE (19:33)
[2017-08-06 19:59] LABS: Basophils # 0.1 K/mcL (0.0-0.2); Eosinophils # 0.2 K/mcL (0.0-0.6); Eosinophils % 2.9 %; Hematocrit 42.1 % (37.5-50.1); Hemoglobin 14.2 g/dL (12.9-16.9); Immature Granulocytes % 0.3 % (0-4); Lymphocytes # 1.2 K/mcL (0.6-4.6); Lymphocytes % 17.5 %; Mean Corpuscular HGB Conc 33.7 g/dL (31.6-35.5); Mean Corpuscular Hemoglobin 30.2 pg (28.0-33.3); Mean Corpuscular Volume 89.6 fL (83.0-100.0); Mean Platelet Volume 10.8 fL (9.4-12.4); Monocytes # 0.8 K/mcL (0.0-1.3); Monocytes % 11.3 %; Neutrophils # 4.6 K/mcL (1.6-8.9); Platelet Count 200 K/mcL (140-400); Red Cell Distribution Width 11.9 % (11.5-14.5)
[2017-08-06 20:03] LABS: INR 1.1; Prothrombin Time 11.7 Seconds (9.4-12.1)
[2017-08-06 20:06] LABS: Activated Partial Thrombo Time 32.3 Seconds (26.0-36.0)
[2017-08-06 20:10] LABS: BUN/Creatinine Ratio 14 (6-26); Blood Urea Nitrogen 15 mg/dL (8-26); Calcium 8.9 mg/dL (8.6-10.8); Carbon Dioxide 25 mEq/L (19-29); Chloride 102 mEq/L (98-109); Glucose 106 mg/dL (70-99); Osmolality,Calculated 283 (280-300); Potassium 3.9 mEq/L (3.5-4.5); Sodium 136 mEq/L (136-145); eGFR For African Americans > 60 (> 60); eGFR For Non-African Americans > 60 (> 60)
[2017-08-06] MEDS ORDERED: Acetaminophen 325 MG TABLET PO PRN (22:04)
[2017-08-06] MEDS ORDERED: *HR* HYDROcodone/Acet 5/325 mg TABLET PO PRN (22:04)
[2017-08-06] MEDS ORDERED: *HR* Morphine 2 MG/ML SYRINGE IVP PRN (22:04)
[2017-08-06] MEDS ORDERED: Naloxone 0.4 MG/ML INJ IVP PRN (22:04)
[2017-08-06] MEDS ORDERED: MOM Conc 10 ML UD.LIQ PO PRN (22:04)
[2017-08-06] MEDS ORDERED: Ondansetron 4 MG/2 ML VIAL IVP PRN (22:04)
[2017-08-06] MEDS ORDERED: Nitroglycerin 0.4 MG TAB.SUBL SL PRN (22:08)
[2017-08-07 01:11] LABS: BUN/Creatinine Ratio 13 (6-26); Blood Urea Nitrogen 13 mg/dL (8-26); Carbon Dioxide 23 mEq/L (19-29); Chloride 104 mEq/L (98-109); Chol/HDL Ratio 3.9 (0-4.9); Cholesterol 133 mg/dL (< 200); Glucose 105 mg/dL (70-99); HDL Cholesterol 34 mg/dL (40-59); LDL Cholesterol,Calculated 82 mg/dL (0-99); Osmolality,Calculated 282 (280-300); Potassium 3.7 mEq/L (3.5-4.5); Sodium 136 mEq/L (136-145); Triglycerides 84 mg/dL (< 150); eGFR For African Americans > 60 (> 60); eGFR For Non-African Americans > 60 (> 60)
--- NOTE | 2017-08-07 01:52 | Internal Med History&Physical ---
Date of Encounter: 08/06/17 Time of Encounter: 22:40 Assessment and Plan (1) Chest pain Current visit: No Status: Acute Will admit the pt into Tele for observation Will place the pt on court monitor check serial troponin so far negative troponin EKG reviewed - showed NSR, No ST T changes..No significant ischemic changes noticed will start pt on Nitro PRN and Morphine IV PRN for pain Cont ASA + Plavix + Metoprolol + Lisinopril + Imdur If BP tolerates will inc Imdur to 90 mg in AM Will check FLP in AM Will get stress test in AM since pt is high risk for ACS Qualifiers: Chest pain type: unspecified Qualified Code(s): R07.9 - Chest pain, unspecified (2) CAD (coronary artery disease) Current visit: No Status: Chronic recent stents to RCA x 3 in 11/09 Cont ASA + Plavix + Metoprolol + Lisinopril + Imdur If BP tolerates will inc Imdur to 90 mg in AM Qualifiers: Coronary Disease-Associated Artery/Lesion type: bypass graft [place] vs. transplanted heart: [place] heart Associated angina: without angina Qualified Code(s): I25.810 - Atherosclerosis of coronary artery bypass graft(s) without angina pectoris (3) Hypertension Current visit: No Status: Chronic resumed home meds Qualifiers: Hypertension type: essential hypertension Qualified Code(s): I10 - Essential (primary) hypertension (4) GERD (gastroesophageal reflux disease) Current visit: No Status: Chronic started on PPI Qualifiers: Esophagitis presence: esophagitis presence not specified Qualified Code(s) : K21.9 - Gastro-esophageal reflux disease without esophagitis Internal Medicine - H&P: HPI Chief complaint: Chest pain Admitted From: Emergency Dept Plans for Post Hospital Care: Home History of present illness: Mr. Mcmullen is a 82 year old male PMH of CAD s/p 4 vessel CABG and s/p PCI to RCA in October 2016, remote hx of severe pop, HTN, prior tobacco use, right subclavian stenosis, and HLD who presented to the ED with Left side CP since last night, which is intermittent, non radiating, more like sharp pain, 7/10 in severity, and resoled with Nitro. Pt denied any active CP now. Denied any nausea / vomiting / diaphoresis with CP. Past Med Surg Social Fam HX - Past Medical History Medical history: coronary artery disease, GERD, hyperlipidemia, hypertension, myocardial infarction, syncope Psychiatric history: no psych history - Past Surgical History Surgical History: angioplasty/stent, cholecystectomy, coronary bypass (CABG), herniorrhaphy, other - Social History Smoking Status: Former smoker Smokeless Tobacco Status: No Alcohol use: none Drug use: none - Family History Father Living Status: Hx Family Cardiac Disorders: Yes (heart attack) Hx Family Neurologic Disorders: Yes (CVA) Mother Living Status: Hx Family Cardiac Disorders: No Hx Family Respiratory Disorders: No Hx Family Cancer: No Hx Family GI Disorders: No Hx Family Endocrine Disorder: No Hx Family Neuromuscular Disorders: No Hx Family Neurologic Disorders: No Hx Family HEENT Disorders: No Hx Family Autoimmune Disorders: No Internal Medicine - H&P: Meds Aspirin 81 mg PO DAILY 04/29/15 [History] Isosorbide MONOnitrate (24 HR) [Imdur] 60 mg PO DAILY 04/29/15 [History] Ranitidine HCl [Zantac] 150 mg PO BID 04/29/15 [History] Simvastatin [Zocor] 20 mg PO HS 04/29/15 [History] Metoprolol XL (24 HR) Succ [Toprol Xl] 12.5 mg PO BID 11/13/16 [History] Mirtazapine 7.5 mg PO HS 11/13/16 [History] Nitroglycerin [Nitrostat] 0.4 mg SL Q5M PRN 11/13/16 [History] amLODIPine [Norvasc] 5 mg PO DAILY 11/13/16 [History] Triamcinolone Acet 0.1% CRM [Kenalog] 1 appl TP BID 11/16/16 [History] Lisinopril [Zestril] 10 mg PO DAILY #30 tablet 11/17/16 [Rx] HydrOXYzine 10 mg PO TID PRN #20 tablet 03/16/17 [Rx] Clopidogrel [Plavix] 75 mg PO DAILY 08/06/17 [History] 3 Allergy/AdvReac Type Severity Reaction Status Date / Time Penicillins [PCN] AdvReac See Verified 08/06/17 20:37 Comments All Systems PM: A 10-system review of systems was performed and is negative for pertinent findings except as documented above in the HPI. Review of systems: All the systems are reviewed everything is benign except the systems and symptoms I mentioned in the history of present illness - Constitutional Vitals: Temp Pulse Resp BP Pulse Ox 97.5 F L 65 18 127/75 93 08/07/17 01:11 08/07/17 01:11 08/07/17 01:11 08/07/17 01:11 08/07/17 01:35 General appearance: Present: A&O X 3, no acute distress, answers questions appropriately - Head Head exam: Present: atraumatic Additional comments: scars all over the face from previous pop noticed - Neck Neck exam general surgery: Present: supple - Respiratory Respiratory exam: Present: decreased breath sounds. Absent: rales, respiratory distress, rhonchi, wheezes - Cardiovascular Cardiovascular exam: Present: RRR, +S1, +S2. Absent: tachycardia - GI/Abdominal GI/Abdominal exam: Present: normal bowel sounds, soft. Absent: rebound, rigid, tenderness - Extremities Exam Extremities exam: Absent: calf tenderness, pedal edema, tenderness - Back Exam Back exam: Absent: CVA tenderness (L), CVA tenderness (R) - Neurological Exam Neurological exam: Present: alert, oriented X3 - Psychiatric Psychiatric exam: Present: normal affect, normal mood - Skin Skin exam: Absent: rash Internal Med - H&P Results - Labs CBC & Chem 7: 08/06/17 19:44 08/07/17 00:24 Labs: BMP 08/07/17 00:24 Sodium 136 Potassium 3.7 Chloride 104 Carbon Dioxide 23 BUN 13 Creatinine 1.01 Glucose 105 H Calcium 9.0 Cardiac Enzymes 08/07/17 Range/Units 00:24 Troponin I 0.01 (0-0.03) ng/mL
[2017-08-07] MEDS ORDERED: Regadenoson 0.4 MG/5 ML SYRINGE IVP ONE (06:09)
[2017-08-07] MEDS ORDERED: Famotidine 20 MG TABLET PO SCH (09:00)
[2017-08-07] MEDS ORDERED: Isosorbide MONOnitrate (24 HR) 60 MG TAB.ER.24H PO SCH (09:00)
[2017-08-07] MEDS ORDERED: Metoprolol XL (24 HR) Succ 25 MG TAB.ER.24H PO SCH (09:00)
[2017-08-07] MEDS ORDERED: Aspirin 81 MG TAB.CHEW PO SCH (09:00)
[2017-08-07] MEDS ORDERED: amLODIPine 5 MG TABLET PO SCH (09:00)
[2017-08-07] MEDS ORDERED: Triamcinolone Acet 0.1% CRM 15 GM TUBE TP SCH (09:00)
[2017-08-07 11:59] VITALS: BP 149/66
--- NOTE | 2017-08-07 13:48 | Discharge Summary ---
<Silvio Eason - Last Filed: 08/07/17 14:38> Date of Encounter: 08/07/17 Time of Encounter: 13:45 - Discharge Diagnosis (1) GERD (gastroesophageal reflux disease) Priority: Primary Status: Acute Qualifiers: Esophagitis presence: esophagitis presence not specified Qualified Code(s) : K21.9 - Gastro-esophageal reflux disease without esophagitis (2) Chest pain Priority: Primary Status: Resolved Qualifiers: Chest pain type: unspecified Qualified Code(s): R07.9 - Chest pain, unspecified (3) Hypertension Priority: Secondary Status: Chronic Qualifiers: Hypertension type: essential hypertension Qualified Code(s): I10 - Essential (primary) hypertension - Discharge Medications Prescriptions: Lansoprazole [Prevacid] 30 mg PO QAM #30 capsule. Home Medications: Aspirin 81 mg PO DAILY 04/29/15 [History] Isosorbide MONOnitrate (24 HR) [Imdur] 60 mg PO DAILY 04/29/15 [History] Simvastatin [Zocor] 20 mg PO HS 04/29/15 [History] Metoprolol XL (24 HR) Succ [Toprol Xl] 12.5 mg PO BID 11/13/16 [History] Mirtazapine 7.5 mg PO HS 11/13/16 [History] Nitroglycerin [Nitrostat] 0.4 mg SL Q5M PRN 11/13/16 [History] amLODIPine [Norvasc] 5 mg PO DAILY 11/13/16 [History] Triamcinolone Acet 0.1% CRM [Kenalog] 1 appl TP BID 11/16/16 [History] Lisinopril [Zestril] 10 mg PO DAILY #30 tablet 11/17/16 [Rx] HydrOXYzine 10 mg PO TID PRN #20 tablet 03/16/17 [Rx] Clopidogrel [Plavix] 75 mg PO DAILY 08/06/17 [History] Lansoprazole [Prevacid] 30 mg PO QAM #30 capsule. 08/07/17 [Rx] Allergies/Adverse Reactions: 3 Allergy/AdvReac Type Severity Reaction Status Date / Time Penicillins [PCN] AdvReac See Verified 08/06/17 20:37 Comments Procedures/tests Complete & Pending: Procedures Performed prior 72 hours Category Date Time Status NM pratik perf SPECT multi [NM] Routine Exams 08/06/17 22:07 Taken SP pharm nuclear stress Routine Y 08/07/17 07:45 Completed Date of admission: 08/06/17 21:16 Primary care physician: Rebekah Ogden CNP Discharging clinician: Silvio Eason Anticipated date of discharge: 08/07/17 - Patient Status Disposition: Home, Self-Care Condition: Fair Functional capacity at discharge: independent ambulation Overall status at discharge: patient is progressing back to baseline - Discharge Instructions Instructions: Lansoprazole (By mouth), Gastroesophageal Reflux Disease (DC), Chronic Hypertension (DC) Follow Up With: Rebekah Ogden CNP [Primary Care Provider] - 08/12/17 11:00 am (office will call for an appt..) Additional Instructions: Please resume your home medications other than zantac. Please start prevacid. Please follow up with your PCP as scheduled. Please return for new or worsening symptoms. - Diet and Activity Activity: increase activity as tolerated Diet: low fat, low cholesterol Interval History: Patient seen and examined at bedside. He states his pain is better during the day. It was worse earlier after taking a drink of pepsi. He denies dyspnea. Hospital course: Mr. Mcmullen is a 82 year old male with hx of CAD, GERD who presents with chest pain. He states that he has had chest pain in the center of his chest for some time. Patient underwent cardiac workup including EKG, troponins x3 which were all negative for signs of ischemia. Patient underwent cardiac stress testing which was negative for ischemia. Given that patients symptoms are related to food and drink intake we stopped his H2 loida and started a PPI. Patient will be discharged home in stable condition. - Time Spent with Patient Total time spent providing and/or coordinating discharge services: 35 minutes - Constitutional Vitals: Temp Pulse Resp BP Pulse Ox 97.7 F 74 16 149/66 94 08/07/17 11:56 08/07/17 11:56 08/07/17 11:56 08/07/17 11:56 08/07/17 11:56 General appearance: Present: A&O X 3, no acute distress, answers questions appropriately - Respiratory Respiratory exam: Present: CTAB. Absent: rales, rhonchi, wheezes - Cardiovascular Cardiovascular exam: Present: RRR. Absent: gallop, rubs, systolic murmur - GI/Abdominal GI/Abdominal exam: Present: normal bowel sounds, soft. Absent: distended, tenderness - Extremities Exam Extremities exam: Present: warm. Absent: pedal edema, tenderness - Neurological Exam Neurological exam: Present: alert, oriented X3, no focal deficits <Joseph Gutierrez H - Last Filed: 08/07/17 15:12> Date of Encounter: 08/07/17 Procedures/tests Complete & Pending: Procedures Performed prior 72 hours Category Date Time Status NM pratik perf SPECT multi [NM] Routine Exams 08/06/17 22:07 Taken SP pharm nuclear stress Routine Y 08/07/17 07:45 Completed Date of admission: 08/06/17 21:16 Primary care physician: Rebekah Ogden CNP Hospital course: Mr. Mcmullen is a 82 year old male - Time Spent with Patient Total time spent providing and/or coordinating discharge services: - Constitutional Vitals: Temp Pulse Resp BP Pulse Ox 97.7 F 74 16 149/66 94 08/07/17 11:56 08/07/17 11:56 08/07/17 11:56 08/07/17 11:56 08/07/17 11:56 - Attending Attestation HLD I examined this patient and my medical decision-making was reviewed with the Resident Physician. I agree with the documented findings, disposition and treatment plan as described except to the extent set forth below.
--- NOTE | 2017-08-07 15:54 | Electrocardiograph Report ---
[address] [address] Test Date: 2017-08-06 Pat Name: Inocencio Mcmullen Department: 102 Room: 2A44 Gender: M [employer]: : [id number] Requested By: Daniel Candelario Order Number: [id number] Reading MD: Kirsten Subramanian Measurements Intervals [place] Rate: 69 P: 27 [place]: 167 QRS: 31 QRSD: 90 T: 56 QT: 389 QTc: 408 Interpretive Statements SINUS RHYTHM Electronically Signed On 08-07-2017 15:52:47 EST by Kirsten Subramanian
[2017-08-07] MEDS ORDERED: Mirtazapine 15 MG TABLET PO SCH (21:00)
== END 2017-08-07 14:36 | disposition home or self-care (01) ==
LOC: EMEROO 19:12 → 2ANU 19:12
PROVIDERS: ADMIT Family Medicine; ATTEND Internal Medicine

== ENCOUNTER 2019-03-09 06:01 | Observation (INO) ==
[2019-03-09] MEDS ORDERED: Aspirin 81 MG TAB.CHEW PO STA (06:18)
[2019-03-09] MEDS ORDERED: Nitroglycerin 0.4 MG TAB.SUBL SL PRN ×2 (06:20→09:22)
[2019-03-09 06:46] LABS: Basophils # 0.1 K/mcL (0.0-0.2); Basophils % 0.5 %; Eosinophils # 0.1 K/mcL (0.0-0.6); Eosinophils % 1.4 %; Hematocrit 42.5 % (37.5-50.1); Hemoglobin 14.6 g/dL (12.9-16.9); Immature Granulocytes % 0.3 % (0-4); Lymphocytes # 0.9 K/mcL (0.6-4.6); Lymphocytes % 8.7 %; Mean Corpuscular HGB Conc 34.4 g/dL (31.6-35.5); Mean Corpuscular Hemoglobin 30.4 pg (28.0-33.3); Mean Corpuscular Volume 88.5 fL (83.0-100.0); Mean Platelet Volume 9.9 fL (9.4-12.4); Monocytes # 1.1 K/mcL (0.0-1.3); Monocytes % 11.2 %; Neutrophils # 7.7 K/mcL (1.6-8.9); Platelet Count 236 K/mcL (140-400); Red Cell Distribution Width 11.9 % (11.5-14.5); Segmented Neutrophils % 77.9 %; White Blood Count 9.9 K/mcL (4.3-11.1)
[2019-03-09 07:05] LABS: BUN/Creatinine Ratio 15 (6-26); Blood Urea Nitrogen 15 mg/dL (8-23); Carbon Dioxide 24 mEq/L (23-29); Chloride 97 mEq/L (98-107); Glucose 108 mg/dL (70-105); Osmolality,Calculated 275 (280-300); Potassium 3.8 mEq/L (3.5-5.1); Sodium 132 mEq/L (136-145); eGFR For African Americans > 60 (> 60); eGFR For Non-African Americans > 60 (> 60)
[2019-03-09 07:06] LABS: Troponin I < 0.03 ng/mL (< 0.04)
[2019-03-09] MEDS ORDERED: Mirtazapine 15 MG TABLET PO SCH (21:00)
[2019-03-09] MEDS: Metoprolol XL (24 HR) Succ 25 MG TAB.ER.24H PO SCH (21:19)
[2019-03-10] MEDS ORDERED: Regadenoson 0.4 MG/5 ML SYRINGE IVP ONE (06:40)
[2019-03-10] MEDS ORDERED: amLODIPine 5 MG TABLET PO SCH (09:00)
[2019-03-10] MEDS ORDERED: Aspirin 81 MG TAB.CHEW PO SCH (09:00)
[2019-03-10] MEDS ORDERED: Isosorbide MONOnitrate (24 HR) 60 MG TAB.ER.24H PO SCH (09:00)
[2019-03-10] MEDS: Metoprolol XL (24 HR) Succ 25 MG TAB.ER.24H PO SCH (09:13)
[2019-03-10 10:35] VITALS: BP 132/71
== END 2019-03-10 12:47 | disposition home or self-care (01) ==
LOC: EMEROOARM 06:01 → CDU 06:01 → SUATTDRO 08:29 → CDU 08:50
PROVIDERS: ADMIT Internal Medicine; ATTEND Internal Medicine

== ENCOUNTER 2020-06-13 13:05 | Observation (INO) ==
[2020-06-13] MEDS ORDERED: Ondansetron 4 MG/2 ML VIAL IVP ONE (13:11)
[2020-06-13] MEDS ORDERED: 0.9 % Sodium Chloride 1,000 ML IVC ONE (13:11)
[2020-06-13 14:27] LABS: Hematocrit 45.1 % (37.5-50.1); Hemoglobin 15.3 g/dL (12.9-16.9); Mean Corpuscular HGB Conc 33.9 g/dL (31.6-35.5); Mean Corpuscular Hemoglobin 29.8 pg (28.0-33.3); Mean Corpuscular Volume 87.7 fL (83.0-100.0); Mean Platelet Volume 10.6 fL (9.4-12.4); Platelet Count 172 K/mcL (140-400); Red Blood Count 5.14 M/mcL (4.19-5.50); Red Cell Distribution Width 12.2 % (11.5-14.5); White Blood Count 4.9 K/mcL (4.3-11.1)
[2020-06-13 14:28] LABS: Basophils % 0.4 %; Eosinophils % 0.8 %; Immature Granulocytes % 0.2 % (0-4); Lymphocytes # 0.8 K/mcL (0.6-4.6); Lymphocytes % 15.7 %; Monocytes # 0.6 K/mcL (0.0-1.3); Monocytes % 11.3 %; Neutrophils # 3.5 K/mcL (1.6-8.9); Segmented Neutrophils % 71.6 %
[2020-06-13 15:10] LABS: Alanine Aminotransferase 23 Units/L (7-52); Albumin 4.4 g/dL (3.5-5.7); Albumin/Globulin Ratio 1.6 (1.1-2.2); Alkaline Phosphatase 111 Units/L (34-104); Aspartate Amino Transferase 30 Units/L (13-39); BUN/Creatinine Ratio 14 (6-26); Bilirubin,Direct 0.3 mg/dL (0.0-0.2); Bilirubin,Indirect 0.6 mg/dL (0.0-1.0); Bilirubin,Total 0.9 mg/dL (0.3-1.0); Blood Urea Nitrogen 15 mg/dL (8-23); Calcium 9.4 mg/dL (8.6-10.3); Carbon Dioxide 22 mEq/L (23-29); Chloride 96 mEq/L (98-107); Globulin 2.8 g/dL (2.4-3.5); Glucose 108 mg/dL (70-105); Magnesium 1.8 mg/dL (1.6-2.6); Osmolality,Calculated 267 (280-300); Potassium 3.9 mEq/L (3.5-5.1); Sodium 128 mEq/L (136-145); Total Protein 7.2 g/dL (6.4-8.9); Troponin I < 0.03 ng/mL (< 0.04); eGFR For African Americans > 60 (> 60); eGFR For Non-African Americans > 60 (> 60)
[2020-06-13 15:39] LABS: Bilirubin,Urine Negative (Negative); Blood,Urine Negative (Negative); Clarity,Urine Clear (Clear); Color,Urine Light-Yellow (Yellow); Glucose,Urine (UA) Normal (Normal); Ketones,Urine Negative (Negative); Leukocyte Esterase,Urine Negative (Negative); Nitrite,Urine Negative (Negative); PH,Urine 6.5 pH Units (5.0-8.0); Protein,Urine Negative (Neg-Trace); Specific Gravity,Urine 1.006 (1.010-1.025); Urobilinogen,Urine Normal (Normal)
[2020-06-13] MEDS ORDERED: Naloxone 0.4 MG/ML INJ IVP PRN (16:20)
[2020-06-13] MEDS ORDERED: Nitroglycerin 0.4 MG TAB.SUBL SL PRN (17:07)
[2020-06-13] MEDS: *HR* Heparin 5,000 UNIT/ML VIAL SQ SCH (18:21)
[2020-06-13] MEDS: 0.9 % Sodium Chloride 1,000 ML IVC SCH (18:31)
[2020-06-13 19:36] LABS: C-Reactive Protein 9 mg/L (Less than 10)
[2020-06-13 19:54] LABS: Ferritin 114 ng/mL (20-250)
[2020-06-13] MEDS ORDERED: Ondansetron 4 MG/2 ML VIAL IVP PRN (19:54)
[2020-06-13] MEDS: Metoprolol XL (24 HR) Succ 25 MG TAB.ER.24H PO SCH (20:02)
[2020-06-14] MEDS: *HR* Heparin 5,000 UNIT/ML VIAL SQ SCH ×2 (05:03→16:51)
[2020-06-14 06:58] LABS: Basophils % 0.6 %; Eosinophils % 1.2 %; Immature Granulocytes % 0.3 % (0-4); Lymphocytes % 29.7 %; Mean Corpuscular Hemoglobin 30.6 pg (28.0-33.3); Mean Corpuscular Volume 89.9 fL (83.0-100.0); Mean Platelet Volume 10.2 fL (9.4-12.4); Monocytes # 0.4 K/mcL (0.0-1.3); Monocytes % 11.8 %; Platelet Count 172 K/mcL (140-400); Red Blood Count 5.23 M/mcL (4.19-5.50); Red Cell Distribution Width 12.4 % (11.5-14.5); Segmented Neutrophils % 56.4 %; White Blood Count 3.5 K/mcL (4.3-11.1)
[2020-06-14 07:18] LABS: BUN/Creatinine Ratio 12 (6-26); Blood Urea Nitrogen 10 mg/dL (8-23); Calcium 8.9 mg/dL (8.6-10.3); Carbon Dioxide 24 mEq/L (23-29); Chloride 102 mEq/L (98-107); Glucose 85 mg/dL (70-105); Magnesium 1.9 mg/dL (1.6-2.6); Osmolality,Calculated 272 (280-300); Phosphorous 2.2 mg/dL (2.7-4.5); Potassium 3.9 mEq/L (3.5-5.1); Sodium 132 mEq/L (136-145); eGFR For African Americans > 60 (> 60); eGFR For Non-African Americans > 60 (> 60)
[2020-06-14] MEDS ORDERED: Isovue-370 500 ML BOTTLE IVP ONE (07:51)
[2020-06-14] MEDS: 0.9 % Sodium Chloride 1,000 ML IVC SCH (08:07)
[2020-06-14] MEDS: amLODIPine 5 MG TABLET PO SCH (08:10)
[2020-06-14] MEDS: Metoprolol XL (24 HR) Succ 25 MG TAB.ER.24H PO SCH ×2 (08:11→20:17)
[2020-06-14] MEDS: Isosorbide MONOnitrate (24 HR) 60 MG TAB.ER.24H PO SCH (08:11)
[2020-06-14] MEDS: Aspirin Enteric Coated 81 MG Tablet PO SCH (08:11)
[2020-06-15] MEDS: *HR* Heparin 5,000 UNIT/ML VIAL SQ SCH (06:17)
[2020-06-15] MEDS: Aspirin Enteric Coated 81 MG Tablet PO SCH (08:27)
[2020-06-15] MEDS: Isosorbide MONOnitrate (24 HR) 60 MG TAB.ER.24H PO SCH (08:28)
[2020-06-15] MEDS: Metoprolol XL (24 HR) Succ 25 MG TAB.ER.24H PO SCH (08:28)
[2020-06-15] MEDS: amLODIPine 5 MG TABLET PO SCH (08:28)
[2020-06-15 12:58] VITALS: BP 153/67
== END 2020-06-15 13:01 | disposition home or self-care (01) ==
LOC: EMEROOARM 13:05 → 2NENU 13:05 → SUATTDRO 16:46 → 2NENU 17:08
PROVIDERS: ADMIT Internal Medicine; ATTEND Internal Medicine

== ENCOUNTER 2021-12-25 08:45 | Inpatient (IN) ==
[2021-12-25] MEDS ORDERED: Aspirin 81 MG TAB.CHEW PO ONE (08:46)
[2021-12-25] MEDS: Nitroglycerin 0.4 MG TAB.SUBL SL PRN (09:12)
[2021-12-25 09:26] LABS: White Blood Count 5.8 K/mcL (4.3-11.1)
[2021-12-25 09:27] LABS: Basophils # 0.1 K/mcL (0.0-0.2); Eosinophils # 0.2 K/mcL (0.0-0.6); Eosinophils % 2.8 %; Hematocrit 39.2 % (37.5-50.1); Hemoglobin 13.1 g/dL (12.9-16.9); Immature Granulocytes % 0.2 % (0-4); Lymphocytes # 1.4 K/mcL (0.6-4.6); Lymphocytes % 24.8 %; Mean Corpuscular HGB Conc 33.4 g/dL (31.6-35.5); Mean Corpuscular Hemoglobin 29.6 pg (28.0-33.3); Mean Corpuscular Volume 88.5 fL (83.0-100.0); Mean Platelet Volume 9.9 fL (9.4-12.4); Monocytes # 0.6 K/mcL (0.0-1.3); Monocytes % 10.3 %; Neutrophils # 3.5 K/mcL (1.6-8.9); Platelet Count 247 K/mcL (140-400); Red Blood Count 4.43 M/mcL (4.19-5.50); Red Cell Distribution Width 12.4 % (11.5-14.5); Segmented Neutrophils % 60.9 %
[2021-12-25 11:34] LABS: Troponin I < 0.03 ng/mL (< 0.04)
[2021-12-25 11:53] LABS: BUN/Creatinine Ratio 16 (6-26); Blood Urea Nitrogen 15 mg/dL (8-23); Calcium 8.7 mg/dL (8.6-10.3); Carbon Dioxide 22 mEq/L (23-29); Chloride 99 mEq/L (98-107); Glucose 111 mg/dL (70-105); Osmolality,Calculated 274 (280-300); Potassium 3.8 mEq/L (3.5-5.1); Sodium 131 mEq/L (136-145); eGFR For African Americans > 60 (> 60); eGFR For Non-African Americans > 60 (> 60)
[2021-12-25] MEDS ORDERED: Perflutren Lipid Microsphere 1.3 ML in 0.9 % Sodium Chloride 8.7 ML IVP PRN (15:45)
[2021-12-25] MEDS: Metoprolol XL (24 HR) Succ 25 MG TAB.ER.24H PO SCH (16:26)
[2021-12-25] MEDS: Mirtazapine 15 MG TABLET PO SCH (20:18)
[2021-12-25] MEDS ORDERED: *HR* HYDROcodone/Acet 5/325 mg TABLET PO ONE (23:11)
[2021-12-25] MEDS ORDERED: Melatonin 3 MG TABLET PO PRN (23:11)
[2021-12-26 05:11] LABS: Basophils # 0.1 K/mcL (0.0-0.2); Basophils % 0.4 %; Eosinophils % 0.1 %; Hematocrit 36.3 % (37.5-50.1); Immature Granulocytes % 0.4 % (0-4); Lymphocytes # 1.1 K/mcL (0.6-4.6); Lymphocytes % 7.2 %; Mean Corpuscular HGB Conc 33.3 g/dL (31.6-35.5); Mean Corpuscular Hemoglobin 29.7 pg (28.0-33.3); Mean Platelet Volume 10.2 fL (9.4-12.4); Monocytes # 1.9 K/mcL (0.0-1.3); Monocytes % 12.2 %; Neutrophils # 12.6 K/mcL (1.6-8.9); Platelet Count 219 K/mcL (140-400); Red Blood Count 4.08 M/mcL (4.19-5.50); Red Cell Distribution Width 12.5 % (11.5-14.5); Segmented Neutrophils % 79.7 %
[2021-12-26 05:18] LABS: Hemoglobin 12.1 g/dL (12.9-16.9); White Blood Count 15.8 K/mcL (4.3-11.1)
[2021-12-26 05:29] LABS: INR 1.2; Prothrombin Time 13.3 Seconds (9.4-12.1)
[2021-12-26 05:56] LABS: Alanine Aminotransferase 13 Units/L (7-52); Albumin 3.8 g/dL (3.5-5.7); Albumin/Globulin Ratio 1.6 (1.1-2.2); Alkaline Phosphatase 90 Units/L (34-104); Aspartate Amino Transferase 20 Units/L (13-39); BUN/Creatinine Ratio 13 (6-26); Bilirubin,Total 0.9 mg/dL (0.3-1.0); Blood Urea Nitrogen 12 mg/dL (8-23); Calcium 8.7 mg/dL (8.6-10.3); Carbon Dioxide 21 mEq/L (23-29); Chloride 99 mEq/L (98-107); Globulin 2.4 g/dL (2.4-3.5); Glucose 117 mg/dL (70-105); Magnesium 1.7 mg/dL (1.6-2.6); Osmolality,Calculated 269 (280-300); Potassium 4.1 mEq/L (3.5-5.1); Sodium 129 mEq/L (136-145); Total Protein 6.2 g/dL (6.4-8.9); eGFR For African Americans > 60 (> 60); eGFR For Non-African Americans > 60 (> 60)
[2021-12-26] MEDS: lisinopriL 10 MG TABLET PO SCH (09:26)
[2021-12-26] MEDS: Metoprolol XL (24 HR) Succ 25 MG TAB.ER.24H PO SCH (09:26)
[2021-12-26] MEDS: Isosorbide MONOnitrate (24 HR) 60 MG TAB.ER.24H PO SCH (09:26)
[2021-12-26] MEDS: Mirtazapine 15 MG TABLET PO SCH (20:51)
[2021-12-26] MEDS ORDERED: polyethylene glycoL 3350 17 GM POWD.PACK PO PRN (21:45)
[2021-12-26] MEDS ORDERED: Isovue-370 500 ML BOTTLE IVP ONE (23:09)
[2021-12-27 01:25] LABS: Basophils % 0.3 %; Eosinophils % 0.1 %; Hematocrit 33.4 % (37.5-50.1); Hemoglobin 11.2 g/dL (12.9-16.9); Immature Granulocytes % 0.3 % (0-4); Lymphocytes # 1.6 K/mcL (0.6-4.6); Lymphocytes % 11.1 %; Mean Corpuscular HGB Conc 33.5 g/dL (31.6-35.5); Mean Corpuscular Hemoglobin 29.9 pg (28.0-33.3); Mean Corpuscular Volume 89.3 fL (83.0-100.0); Mean Platelet Volume 10.6 fL (9.4-12.4); Monocytes # 1.6 K/mcL (0.0-1.3); Monocytes % 10.7 %; Neutrophils # 11.3 K/mcL (1.6-8.9); Platelet Count 212 K/mcL (140-400); Red Blood Count 3.74 M/mcL (4.19-5.50); Red Cell Distribution Width 12.9 % (11.5-14.5); Segmented Neutrophils % 77.5 %; White Blood Count 14.6 K/mcL (4.3-11.1)
[2021-12-27 01:36] LABS: BUN/Creatinine Ratio 17 (6-26); Blood Urea Nitrogen 18 mg/dL (8-23); Calcium 8.6 mg/dL (8.6-10.3); Carbon Dioxide 21 mEq/L (23-29); Chloride 98 mEq/L (98-107); Glucose 137 mg/dL (70-105); Osmolality,Calculated 270 (280-300); Potassium 3.8 mEq/L (3.5-5.1); Sodium 128 mEq/L (136-145); eGFR For African Americans > 60 (> 60); eGFR For Non-African Americans > 60 (> 60)
[2021-12-27] MEDS: Pantoprazole 40 MG in 0.9 % Sodium Chloride Mini Bag 100 ML IVC SCH ×2 (01:43→08:15)
[2021-12-27] MEDS: lisinopriL 10 MG TABLET PO SCH (08:04)
[2021-12-27] MEDS: Metoprolol XL (24 HR) Succ 25 MG TAB.ER.24H PO SCH (08:05)
[2021-12-27] MEDS: Isosorbide MONOnitrate (24 HR) 60 MG TAB.ER.24H PO SCH (08:05)
[2021-12-27] MEDS ORDERED: 0.9 % Sodium Chloride 1,000 ML IVC SCH (09:45)
[2021-12-27] MEDS ORDERED: Ondansetron 4 MG/2 ML VIAL IVP PRN (10:27)
[2021-12-27] MEDS: Nitroglycerin 0.4 MG TAB.SUBL SL PRN (11:27)
[2021-12-27] MEDS: *HR* OxyCODONE/APAP 5/325 TABLET PO PRN (12:30)
[2021-12-27 17:57] LABS: Bilirubin,Urine Negative (Negative); Blood,Urine Large (Negative); Clarity,Urine Turbid (Clear); Color,Urine Red (Yellow); Glucose,Urine (UA) Normal (Normal); Ketones,Urine Negative (Negative); Leukocyte Esterase,Urine Large (Negative); Nitrite,Urine Negative (Negative); PH,Urine 6.5 pH Units (5.0-8.0); Protein,Urine 100 mg/dL (Neg-Trace); Specific Gravity,Urine 1.017 (1.010-1.025); Urobilinogen,Urine Normal (Normal)
[2021-12-27 18:41] LABS: Hematocrit 35.3 % (37.5-50.1); Hemoglobin 11.9 g/dL (12.9-16.9); Mean Corpuscular HGB Conc 33.7 g/dL (31.6-35.5); Mean Corpuscular Hemoglobin 29.9 pg (28.0-33.3); Mean Corpuscular Volume 88.7 fL (83.0-100.0); Mean Platelet Volume 10.5 fL (9.4-12.4); Platelet Count 219 K/mcL (140-400); Red Blood Count 3.98 M/mcL (4.19-5.50); Red Cell Distribution Width 12.7 % (11.5-14.5); White Blood Count 12.6 K/mcL (4.3-11.1)
[2021-12-27] MEDS ORDERED: cefTRIAXone 1,000 MG in 0.9 % Sodium Chloride 10 ML IVP SCH (19:00)
[2021-12-27] MEDS: Mirtazapine 15 MG TABLET PO SCH (20:08)
[2021-12-27] MEDS ORDERED: Morphine Sulfate 2 MG/ML SYRINGE IVP ONE (20:40)
[2021-12-28] MEDS: *HR* OxyCODONE/APAP 5/325 TABLET PO PRN ×2 (00:08→15:58)
[2021-12-28 05:34] LABS: Basophils # 0.1 K/mcL (0.0-0.2); Basophils % 0.5 %; Eosinophils # 0.2 K/mcL (0.0-0.6); Eosinophils % 1.9 %; Hematocrit 31.9 % (37.5-50.1); Hemoglobin 10.9 g/dL (12.9-16.9); Immature Granulocytes % 0.4 % (0-4); Lymphocytes # 1.1 K/mcL (0.6-4.6); Lymphocytes % 11.2 %; Mean Corpuscular HGB Conc 34.2 g/dL (31.6-35.5); Mean Corpuscular Hemoglobin 29.9 pg (28.0-33.3); Mean Corpuscular Volume 87.6 fL (83.0-100.0); Mean Platelet Volume 10.6 fL (9.4-12.4); Monocytes % 10.1 %; Neutrophils # 7.7 K/mcL (1.6-8.9); Platelet Count 192 K/mcL (140-400); Red Blood Count 3.64 M/mcL (4.19-5.50); Red Cell Distribution Width 12.8 % (11.5-14.5); Segmented Neutrophils % 75.9 %; White Blood Count 10.1 K/mcL (4.3-11.1)
[2021-12-28 05:52] LABS: BUN/Creatinine Ratio 12 (6-26); Blood Urea Nitrogen 11 mg/dL (8-23); Calcium 8.3 mg/dL (8.6-10.3); Carbon Dioxide 21 mEq/L (23-29); Chloride 100 mEq/L (98-107); Glucose 108 mg/dL (70-105); Osmolality,Calculated 270 (280-300); Potassium 3.8 mEq/L (3.5-5.1); Sodium 130 mEq/L (136-145); eGFR For African Americans > 60 (> 60); eGFR For Non-African Americans > 60 (> 60)
[2021-12-28] MEDS: Metoprolol XL (24 HR) Succ 25 MG TAB.ER.24H PO SCH (08:35)
[2021-12-28] MEDS: Isosorbide MONOnitrate (24 HR) 60 MG TAB.ER.24H PO SCH (08:35)
[2021-12-28] MEDS: lisinopriL 10 MG TABLET PO SCH (08:36)
[2021-12-28] MEDS ORDERED: cefTRIAXone 1,000 MG in 0.9 % Sodium Chloride 10 ML IVP SCH (14:46)
[2021-12-28 16:10] VITALS: BP 118/61; PULSE 79; TEMP 98.1; O2SAT 93
== END 2021-12-28 16:48 | disposition home or self-care (01) | DRG 726 ==
LOC: 3ANU 08:45 → EMEROOARM 08:45 → SUATTDRO 14:20 → 3ANU 14:48
PROVIDERS: ADMIT Hospitalist; ATTEND Family Medicine

== ENCOUNTER 2022-01-17 21:13 | Observation (INO) ==
[2022-01-17] MEDS ORDERED: 0.9 % Sodium Chloride 1,000 ML IVC ONE (21:49)
[2022-01-17 22:06] LABS: Basophils # 0.1 K/mcL (0.0-0.2); Basophils % 1.4 %; Eosinophils # 0.1 K/mcL (0.0-0.6); Hematocrit 37.9 % (37.5-50.1); Hemoglobin 12.7 g/dL (12.9-16.9); Immature Granulocytes % 0.5 % (0-4); Lymphocytes # 1.2 K/mcL (0.6-4.6); Lymphocytes % 18.3 %; Mean Corpuscular HGB Conc 33.5 g/dL (31.6-35.5); Mean Corpuscular Hemoglobin 29.4 pg (28.0-33.3); Mean Corpuscular Volume 87.7 fL (83.0-100.0); Mean Platelet Volume 9.4 fL (9.4-12.4); Monocytes # 0.7 K/mcL (0.0-1.3); Monocytes % 11.3 %; Neutrophils # 4.4 K/mcL (1.6-8.9); Platelet Count 316 K/mcL (140-400); Red Blood Count 4.32 M/mcL (4.19-5.50); Segmented Neutrophils % 66.5 %; White Blood Count 6.6 K/mcL (4.3-11.1)
[2022-01-17 22:22] LABS: Alanine Aminotransferase 26 Units/L (7-52); Albumin 4.2 g/dL (3.5-5.7); Albumin/Globulin Ratio 1.3 (1.1-2.2); Alkaline Phosphatase 101 Units/L (34-104); Aspartate Amino Transferase 26 Units/L (13-39); BUN/Creatinine Ratio 17 (6-26); Bilirubin,Total 0.4 mg/dL (0.3-1.0); Blood Urea Nitrogen 16 mg/dL (8-23); Calcium 9.3 mg/dL (8.6-10.3); Carbon Dioxide 24 mEq/L (23-29); Chloride 93 mEq/L (98-107); Creatine Kinase 31 Units/L (30-223); Globulin 3.2 g/dL (2.4-3.5); Glucose 125 mg/dL (70-105); Magnesium 1.7 mg/dL (1.6-2.6); Osmolality,Calculated 265 (280-300); Potassium 4.3 mEq/L (3.5-5.1); Sodium 126 mEq/L (136-145); Total Protein 7.4 g/dL (6.4-8.9); eGFR For African Americans > 60 (> 60); eGFR For Non-African Americans > 60 (> 60)
[2022-01-17 22:23] LABS: Troponin I < 0.03 ng/mL (< 0.04)
[2022-01-17] MEDS ORDERED: Ketorolac 30 MG/ML VIAL IVP STA (22:55)
[2022-01-17 22:59] LABS: Bilirubin,Urine Negative (Negative); Blood,Urine Negative (Negative); Clarity,Urine Clear (Clear); Color,Urine Colorless (Yellow); Glucose,Urine (UA) Normal (Normal); Ketones,Urine Negative (Negative); Leukocyte Esterase,Urine Small (Negative); Nitrite,Urine Negative (Negative); PH,Urine 7.5 pH Units (5.0-8.0); Protein,Urine Negative (Neg-Trace); RBC,Urine 0-3 per hpf (0-3); Specific Gravity,Urine 1.005 (1.010-1.025); Urobilinogen,Urine Normal (Normal)
[2022-01-17] MEDS ORDERED: diazePAM 10 MG/2 ML SYRINGE IVP STA (23:26)
[2022-01-17] MEDS ORDERED: cefTRIAXone 1,000 MG in 0.9 % Sodium Chloride 10 ML IVP ONE (23:26)
[2022-01-17 23:54] LABS: Influenza A PCR Negative (Negative); Influenza B PCR Negative (Negative); Resp. Syncytial Virus PCR Negative (Negative)
[2022-01-18 00:05] LABS: SARS-CoV-2 by PCR (In House) Negative (Negative)
[2022-01-18] MEDS ORDERED: Melatonin 3 MG TABLET PO PRN (01:30)
[2022-01-18] MEDS ORDERED: Ondansetron 4 MG/2 ML VIAL IVP PRN (01:30)
[2022-01-18] MEDS ORDERED: Acetaminophen 325 MG TABLET PO PRN (01:30)
[2022-01-18] MEDS ORDERED: Naloxone 0.4 MG/ML INJ IVP PRN (01:30)
[2022-01-18 05:11] LABS: Basophils # 0.1 K/mcL (0.0-0.2); Basophils % 1.2 %; Eosinophils # 0.2 K/mcL (0.0-0.6); Eosinophils % 3.2 %; Hematocrit 36.3 % (37.5-50.1); Hemoglobin 12.3 g/dL (12.9-16.9); Immature Granulocytes % 0.2 % (0-4); Lymphocytes # 1.3 K/mcL (0.6-4.6); Lymphocytes % 22.1 %; Mean Corpuscular HGB Conc 33.9 g/dL (31.6-35.5); Mean Corpuscular Hemoglobin 29.9 pg (28.0-33.3); Mean Corpuscular Volume 88.1 fL (83.0-100.0); Mean Platelet Volume 9.4 fL (9.4-12.4); Monocytes # 0.7 K/mcL (0.0-1.3); Monocytes % 12.4 %; Neutrophils # 3.7 K/mcL (1.6-8.9); Platelet Count 273 K/mcL (140-400); Red Blood Count 4.12 M/mcL (4.19-5.50); Segmented Neutrophils % 60.9 %
[2022-01-18 05:26] LABS: BUN/Creatinine Ratio 16 (6-26); Blood Urea Nitrogen 14 mg/dL (8-23); Calcium 8.6 mg/dL (8.6-10.3); Chloride 99 mEq/L (98-107); Glucose 101 mg/dL (70-105); Osmolality,Calculated 269 (280-300); Potassium 3.9 mEq/L (3.5-5.1); Sodium 129 mEq/L (136-145); eGFR For African Americans > 60 (> 60); eGFR For Non-African Americans > 60 (> 60)
[2022-01-18 05:27] LABS: Carbon Dioxide 23 mEq/L (23-29)
[2022-01-18] MEDS: *HR* Heparin 5,000 UNIT/ML VIAL SQ SCH ×2 (06:16→17:09)
[2022-01-18] MEDS: *HR* HYDROcodone/Acet 5/325 mg TABLET PO PRN ×2 (06:16→12:38)
[2022-01-18 15:40] LABS: BUN/Creatinine Ratio 13 (6-26); Blood Urea Nitrogen 12 mg/dL (8-23); Calcium 8.2 mg/dL (8.6-10.3); Carbon Dioxide 24 mEq/L (23-29); Chloride 99 mEq/L (98-107); Glucose 150 mg/dL (70-105); Osmolality,Calculated 271 (280-300); Potassium 3.8 mEq/L (3.5-5.1); Sodium 129 mEq/L (136-145); eGFR For African Americans > 60 (> 60); eGFR For Non-African Americans > 60 (> 60)
[2022-01-18] MEDS: cefTRIAXone 1,000 MG in 0.9 % Sodium Chloride 10 ML IVP SCH (20:07)
[2022-01-18] MEDS: Metoprolol XL (24 HR) Succ 25 MG TAB.ER.24H PO SCH (20:08)
[2022-01-18 21:03] LABS: BUN/Creatinine Ratio 12 (6-26); Blood Urea Nitrogen 11 mg/dL (8-23); Calcium 8.3 mg/dL (8.6-10.3); Carbon Dioxide 26 mEq/L (23-29); Chloride 99 mEq/L (98-107); Glucose 118 mg/dL (70-105); Osmolality,Calculated 270 (280-300); Potassium 3.9 mEq/L (3.5-5.1); Sodium 130 mEq/L (136-145); eGFR For African Americans > 60 (> 60); eGFR For Non-African Americans > 60 (> 60)
[2022-01-19 01:10] LABS: Basophils # 0.1 K/mcL (0.0-0.2); Basophils % 1.6 %; Eosinophils # 0.3 K/mcL (0.0-0.6); Eosinophils % 5.5 %; Hematocrit 39.7 % (37.5-50.1); Hemoglobin 12.9 g/dL (12.9-16.9); Immature Granulocytes % 0.2 % (0-4); Lymphocytes # 1.5 K/mcL (0.6-4.6); Lymphocytes % 28.9 %; Mean Corpuscular HGB Conc 32.5 g/dL (31.6-35.5); Mean Corpuscular Hemoglobin 29.1 pg (28.0-33.3); Mean Corpuscular Volume 89.4 fL (83.0-100.0); Mean Platelet Volume 9.2 fL (9.4-12.4); Monocytes # 0.6 K/mcL (0.0-1.3); Monocytes % 12.4 %; Neutrophils # 2.6 K/mcL (1.6-8.9); Platelet Count 299 K/mcL (140-400); Red Blood Count 4.44 M/mcL (4.19-5.50); Red Cell Distribution Width 12.2 % (11.5-14.5); Segmented Neutrophils % 51.4 %; White Blood Count 5.1 K/mcL (4.3-11.1)
[2022-01-19 01:28] LABS: BUN/Creatinine Ratio 11 (6-26); Blood Urea Nitrogen 10 mg/dL (8-23); Calcium 8.8 mg/dL (8.6-10.3); Carbon Dioxide 24 mEq/L (23-29); Chloride 99 mEq/L (98-107); Glucose 95 mg/dL (70-105); Osmolality,Calculated 271 (280-300); Potassium 3.9 mEq/L (3.5-5.1); Sodium 131 mEq/L (136-145); eGFR For African Americans > 60 (> 60); eGFR For Non-African Americans > 60 (> 60)
[2022-01-19] MEDS: *HR* Heparin 5,000 UNIT/ML VIAL SQ SCH ×2 (05:49→17:26)
[2022-01-19] MEDS: Aspirin Enteric Coated 81 MG Tablet PO SCH (09:27)
[2022-01-19] MEDS: lisinopriL 10 MG TABLET PO SCH (09:27)
[2022-01-19] MEDS: Isosorbide MONOnitrate (24 HR) 60 MG TAB.ER.24H PO SCH (09:27)
[2022-01-19] MEDS: Metoprolol XL (24 HR) Succ 25 MG TAB.ER.24H PO SCH ×2 (09:27→20:08)
[2022-01-19] MEDS: amLODIPine 5 MG TABLET PO SCH (09:27)
[2022-01-19] MEDS: Finasteride 5 MG TABLET PO SCH (09:27)
[2022-01-19] MEDS: *HR* HYDROcodone/Acet 5/325 mg TABLET PO PRN (10:46)
[2022-01-19] MEDS: cefTRIAXone 1,000 MG in 0.9 % Sodium Chloride 10 ML IVP SCH (20:10)
[2022-01-20 02:46] LABS: BUN/Creatinine Ratio 15 (6-26); Blood Urea Nitrogen 15 mg/dL (8-23); Calcium 8.9 mg/dL (8.6-10.3); Carbon Dioxide 25 mEq/L (23-29); Chloride 95 mEq/L (98-107); Glucose 114 mg/dL (70-105); Osmolality,Calculated 268 (280-300); Potassium 4.1 mEq/L (3.5-5.1); Sodium 128 mEq/L (136-145); eGFR For African Americans > 60 (> 60); eGFR For Non-African Americans > 60 (> 60)
[2022-01-20] MEDS: *HR* HYDROcodone/Acet 5/325 mg TABLET PO PRN ×2 (02:57→15:21)
[2022-01-20] MEDS: *HR* Heparin 5,000 UNIT/ML VIAL SQ SCH (07:30)
[2022-01-20] MEDS: amLODIPine 5 MG TABLET PO SCH (09:37)
[2022-01-20] MEDS: Isosorbide MONOnitrate (24 HR) 60 MG TAB.ER.24H PO SCH (09:37)
[2022-01-20] MEDS: Finasteride 5 MG TABLET PO SCH (09:37)
[2022-01-20] MEDS: Metoprolol XL (24 HR) Succ 25 MG TAB.ER.24H PO SCH ×2 (09:37→20:30)
[2022-01-20] MEDS: Aspirin Enteric Coated 81 MG Tablet PO SCH (09:38)
[2022-01-20] MEDS: lisinopriL 10 MG TABLET PO SCH (09:38)
[2022-01-20 14:44] LABS: BUN/Creatinine Ratio 13 (6-26); Blood Urea Nitrogen 13 mg/dL (8-23); Calcium 8.6 mg/dL (8.6-10.3); Carbon Dioxide 26 mEq/L (23-29); Chloride 97 mEq/L (98-107); Glucose 125 mg/dL (70-105); Osmolality,Calculated 268 (280-300); Sodium 128 mEq/L (136-145); eGFR For African Americans > 60 (> 60); eGFR For Non-African Americans > 60 (> 60)
[2022-01-20] MEDS: cefTRIAXone 1,000 MG in 0.9 % Sodium Chloride 10 ML IVP SCH (20:29)
[2022-01-20] MEDS ORDERED: Mirtazapine 15 MG TABLET PO SCH (21:00)
[2022-01-21 06:14] LABS: BUN/Creatinine Ratio 17 (6-26); Blood Urea Nitrogen 15 mg/dL (8-23); Calcium 8.7 mg/dL (8.6-10.3); Carbon Dioxide 27 mEq/L (23-29); Chloride 99 mEq/L (98-107); Glucose 111 mg/dL (70-105); Osmolality,Calculated 272 (280-300); Potassium 4.3 mEq/L (3.5-5.1); Sodium 130 mEq/L (136-145); eGFR For African Americans > 60 (> 60); eGFR For Non-African Americans > 60 (> 60)
[2022-01-21 07:03] VITALS: TEMP 97.5
[2022-01-21] MEDS ORDERED: Nitrofurantoin (BID) 100 MG CAPSULE PO SCH (08:22)
[2022-01-21] MEDS: lisinopriL 10 MG TABLET PO SCH (09:24)
[2022-01-21] MEDS: Finasteride 5 MG TABLET PO SCH (09:24)
[2022-01-21] MEDS: Metoprolol XL (24 HR) Succ 25 MG TAB.ER.24H PO SCH (09:24)
[2022-01-21] MEDS: Aspirin Enteric Coated 81 MG Tablet PO SCH (09:24)
[2022-01-21] MEDS: Isosorbide MONOnitrate (24 HR) 60 MG TAB.ER.24H PO SCH (09:24)
[2022-01-21] MEDS: amLODIPine 5 MG TABLET PO SCH (09:24)
[2022-01-21 11:09] VITALS: BP 111/65; PULSE 73; O2SAT 95
== END 2022-01-21 11:29 | disposition home health service (06) ==
LOC: EMEROOARM 21:13 → 2ANU 21:13 → SUATTDRO 01-18 00:35 → 2ANU 01-18 01:04
PROVIDERS: ADMIT Family Medicine; ATTEND Internal Medicine

== ENCOUNTER 2022-03-10 16:00 | Observation (INO) ==
[2022-03-10 18:46] LABS: Hematocrit 37.2 % (37.5-50.1); Hemoglobin 12.2 g/dL (12.9-16.9); Immature Granulocytes % 0.2 % (0-4); Lymphocytes # 0.6 K/mcL (0.6-4.6); Lymphocytes % 7.2 %; Mean Corpuscular HGB Conc 32.8 g/dL (31.6-35.5); Mean Corpuscular Hemoglobin 28.5 pg (28.0-33.3); Mean Corpuscular Volume 86.9 fL (83.0-100.0); Mean Platelet Volume 10.6 fL (9.4-12.4); Monocytes # 0.2 K/mcL (0.0-1.3); Neutrophils # 7.5 K/mcL (1.6-8.9); Platelet Count 237 K/mcL (140-400); Red Blood Count 4.28 M/mcL (4.19-5.50); Red Cell Distribution Width 13.1 % (11.5-14.5); Segmented Neutrophils % 90.6 %; White Blood Count 8.3 K/mcL (4.3-11.1)
[2022-03-10 19:05] LABS: BUN/Creatinine Ratio 18 (6-26); Blood Urea Nitrogen 17 mg/dL (8-23); Calcium 8.7 mg/dL (8.6-10.3); Carbon Dioxide 27 mEq/L (23-29); Chloride 94 mEq/L (98-107); Glucose 134 mg/dL (70-105); Osmolality,Calculated 274 (280-300); Potassium 4.2 mEq/L (3.5-5.1); Sodium 130 mEq/L (136-145); eGFR For African Americans > 60 (> 60); eGFR For Non-African Americans > 60 (> 60)
[2022-03-10 19:06] LABS: Troponin I < 0.03 ng/mL (< 0.04)
[2022-03-10 19:26] LABS: INR 1.1; Prothrombin Time 12.1 Seconds (9.4-12.1)
[2022-03-10 19:39] LABS: Bilirubin,Urine Negative (Negative); Blood,Urine Negative (Negative); Clarity,Urine Clear (Clear); Color,Urine Colorless (Yellow); Glucose,Urine (UA) Normal (Normal); Ketones,Urine Negative (Negative); Leukocyte Esterase,Urine Negative (Negative); Nitrite,Urine Negative (Negative); Protein,Urine Negative (Neg-Trace); Specific Gravity,Urine 1.009 (1.010-1.025); Urobilinogen,Urine Normal (Normal)
[2022-03-10] MEDS ORDERED: Naloxone 0.4 MG/ML INJ IVP PRN (20:39)
[2022-03-10] MEDS ORDERED: Aspirin 81 MG TAB.CHEW PO ONE (21:00)
[2022-03-11 02:27] LABS: Hematocrit 34.2 % (37.5-50.1); Hemoglobin 11.3 g/dL (12.9-16.9); Mean Corpuscular Hemoglobin 28.3 pg (28.0-33.3); Mean Corpuscular Volume 85.5 fL (83.0-100.0); Platelet Count 150 K/mcL (140-400); Red Cell Distribution Width 12.7 % (11.5-14.5); White Blood Count 8.6 K/mcL (4.3-11.1)
[2022-03-11] MEDS ORDERED: Melatonin 3 MG TABLET PO PRN (02:41)
[2022-03-11 02:48] LABS: BUN/Creatinine Ratio 18 (6-26); Blood Urea Nitrogen 15 mg/dL (8-23); Calcium 8.3 mg/dL (8.6-10.3); Carbon Dioxide 24 mEq/L (23-29); Chloride 100 mEq/L (98-107); Glucose 125 mg/dL (70-105); Osmolality,Calculated 276 (280-300); Sodium 132 mEq/L (136-145); eGFR For African Americans > 60 (> 60); eGFR For Non-African Americans > 60 (> 60)
[2022-03-11] MEDS ORDERED: Nitroglycerin 0.4 MG TAB.SUBL SL PRN (03:26)
[2022-03-11] MEDS ORDERED: Regadenoson 0.4 MG/5 ML SYRINGE IVP ONE (07:12)
[2022-03-11 07:25] VITALS: BP 159/80; PULSE 80; TEMP 97.6; O2SAT 95
[2022-03-12] MEDS ORDERED: Isosorbide MONOnitrate (24 HR) 30 MG TAB.ER.24H PO SCH (09:00)
== END 2022-03-11 14:45 | disposition home or self-care (01) ==
LOC: 3BNU 16:00 → EMEROOARM 16:00 → 3BNU 21:20
PROVIDERS: ADMIT Internal Medicine; ATTEND Internal Medicine

== ENCOUNTER 2022-03-15 19:47 | Inpatient (IN) ==
[2022-03-15 20:40] LABS: Basophils % 0.6 %; Eosinophils # 0.2 K/mcL (0.0-0.6); Eosinophils % 3.6 %; Hematocrit 35.7 % (37.5-50.1); Hemoglobin 11.6 g/dL (12.9-16.9); Immature Granulocytes % 0.2 % (0-4); Lymphocytes # 1.6 K/mcL (0.6-4.6); Lymphocytes % 30.7 %; Mean Corpuscular HGB Conc 32.5 g/dL (31.6-35.5); Mean Corpuscular Hemoglobin 28.2 pg (28.0-33.3); Mean Corpuscular Volume 86.9 fL (83.0-100.0); Mean Platelet Volume 10.1 fL (9.4-12.4); Monocytes # 0.7 K/mcL (0.0-1.3); Monocytes % 13.5 %; Neutrophils # 2.8 K/mcL (1.6-8.9); Platelet Count 204 K/mcL (140-400); Red Blood Count 4.11 M/mcL (4.19-5.50); Segmented Neutrophils % 51.4 %; White Blood Count 5.3 K/mcL (4.3-11.1)
[2022-03-15 21:00] LABS: BUN/Creatinine Ratio 10 (6-26); Blood Urea Nitrogen 8 mg/dL (8-23); Calcium 8.7 mg/dL (8.6-10.3); Carbon Dioxide 27 mEq/L (23-29); Chloride 97 mEq/L (98-107); Glucose 109 mg/dL (70-105); Osmolality,Calculated 271 (280-300); Potassium 3.9 mEq/L (3.5-5.1); Sodium 131 mEq/L (136-145); Troponin I < 0.03 ng/mL (< 0.04); eGFR For African Americans > 60 (> 60); eGFR For Non-African Americans > 60 (> 60)
[2022-03-15] MEDS ORDERED: GI Cocktail 40 ML EACH PO ONE (21:36)
[2022-03-15] MEDS ORDERED: Nitrofurantoin (BID) 100 MG CAPSULE PO ONE (22:00)
[2022-03-15] MEDS ORDERED: Ibuprofen 400 MG TABLET PO ONE (22:28)
[2022-03-15] MEDS ORDERED: *HR* HYDROcodone/Acet 5/325 mg TABLET PO PRN (23:18)
[2022-03-15] MEDS ORDERED: *HR* OxyCODONE Immed Rel 5 MG TABLET PO PRN (23:18)
[2022-03-15] MEDS ORDERED: Naloxone 0.4 MG/ML INJ IVP PRN (23:18)
[2022-03-15] MEDS ORDERED: Acetaminophen 325 MG TABLET PO PRN (23:18)
[2022-03-15] MEDS ORDERED: Ondansetron ODT 4 MG TAB.RAPDIS SL PRN (23:18)
[2022-03-15] MEDS ORDERED: Melatonin 3 MG TABLET PO PRN (23:18)
[2022-03-16] MEDS: 0.9 % Sodium Chloride 1,000 ML IVC SCH ×2 (04:46→12:02)
[2022-03-16 05:05] LABS: Hematocrit 33.2 % (37.5-50.1); Hemoglobin 10.8 g/dL (12.9-16.9); Mean Corpuscular HGB Conc 32.5 g/dL (31.6-35.5); Mean Corpuscular Hemoglobin 28.3 pg (28.0-33.3); Mean Corpuscular Volume 86.9 fL (83.0-100.0); Platelet Count 168 K/mcL (140-400); Red Blood Count 3.82 M/mcL (4.19-5.50); Red Cell Distribution Width 12.9 % (11.5-14.5)
[2022-03-16 05:26] LABS: BUN/Creatinine Ratio 9 (6-26); Blood Urea Nitrogen 7 mg/dL (8-23); Calcium 8.3 mg/dL (8.6-10.3); Carbon Dioxide 26 mEq/L (23-29); Chloride 101 mEq/L (98-107); Glucose 98 mg/dL (70-105); Magnesium 1.9 mg/dL (1.6-2.6); Osmolality,Calculated 274 (280-300); Phosphorous 2.8 mg/dL (2.7-4.5); Potassium 3.5 mEq/L (3.5-5.1); Sodium 133 mEq/L (136-145); eGFR For African Americans > 60 (> 60); eGFR For Non-African Americans > 60 (> 60)
[2022-03-16] MEDS ORDERED: Nitrofurantoin (BID) 100 MG CAPSULE PO SCH ×2 (08:00)
[2022-03-16] MEDS ORDERED: Ampicillin/Sulbactam 1,500 MG in 0.9 % Sodium Chloride Mini Bag 100 ML IVPB SCH (12:00)
[2022-03-16] MEDS ORDERED: Piperacillin/Tazobactam 3.375 GM in 0.9 % Sodium Chloride Mini Bag 100 ML IVPB SCH (12:00)
[2022-03-16] MEDS: Mirtazapine 15 MG TABLET PO SCH ×2 (12:02→19:57)
[2022-03-16] MEDS: Metoprolol XL (24 HR) Succ 25 MG TAB.ER.24H PO SCH ×2 (12:13→19:57)
[2022-03-16] MEDS: lisinopriL 10 MG TABLET PO SCH (12:14)
[2022-03-16] MEDS: Isosorbide MONOnitrate (24 HR) 60 MG TAB.ER.24H PO SCH (12:14)
[2022-03-16] MEDS: Piperacillin/Tazobactam 3.375 GM in 0.9 % Sodium Chloride Mini Bag 100 ML IVPB SCH ×2 (12:14→18:58)
[2022-03-16] MEDS: Aspirin Enteric Coated 81 MG Tablet PO SCH (12:14)
[2022-03-16] MEDS: *HR* Heparin 5,000 UNIT/ML VIAL SQ SCH (17:10)
[2022-03-17 02:29] LABS: Basophils % 0.5 %; Eosinophils # 0.2 K/mcL (0.0-0.6); Eosinophils % 4.1 %; Hematocrit 35.9 % (37.5-50.1); Hemoglobin 11.8 g/dL (12.9-16.9); Immature Granulocytes % 0.2 % (0-4); Lymphocytes # 0.9 K/mcL (0.6-4.6); Lymphocytes % 21.1 %; Mean Corpuscular HGB Conc 32.9 g/dL (31.6-35.5); Mean Corpuscular Hemoglobin 28.6 pg (28.0-33.3); Mean Corpuscular Volume 87.1 fL (83.0-100.0); Mean Platelet Volume 9.9 fL (9.4-12.4); Monocytes # 0.5 K/mcL (0.0-1.3); Monocytes % 12.3 %; Neutrophils # 2.7 K/mcL (1.6-8.9); Platelet Count 205 K/mcL (140-400); Red Blood Count 4.12 M/mcL (4.19-5.50); Segmented Neutrophils % 61.8 %; White Blood Count 4.4 K/mcL (4.3-11.1)
[2022-03-17 02:32] LABS: BUN/Creatinine Ratio 9 (6-26); Blood Urea Nitrogen 8 mg/dL (8-23); Calcium 8.3 mg/dL (8.6-10.3); Carbon Dioxide 25 mEq/L (23-29); Chloride 103 mEq/L (98-107); Glucose 96 mg/dL (70-105); Osmolality,Calculated 274 (280-300); Potassium 3.8 mEq/L (3.5-5.1); Sodium 133 mEq/L (136-145); eGFR For African Americans > 60 (> 60); eGFR For Non-African Americans > 60 (> 60)
[2022-03-17] MEDS: Piperacillin/Tazobactam 3.375 GM in 0.9 % Sodium Chloride Mini Bag 100 ML IVPB SCH (04:01)
[2022-03-17] MEDS: *HR* Heparin 5,000 UNIT/ML VIAL SQ SCH ×2 (04:02→17:27)
[2022-03-17] MEDS ORDERED: EPINEPHrine 1 MG/ML VIAL IM PRN (08:18)
[2022-03-17] MEDS ORDERED: methylPREDNISolone 125 MG/2 ML VIAL IVP ONE (08:19)
[2022-03-17] MEDS: lisinopriL 10 MG TABLET PO SCH (08:42)
[2022-03-17] MEDS: Metoprolol XL (24 HR) Succ 25 MG TAB.ER.24H PO SCH ×2 (08:42→19:59)
[2022-03-17] MEDS: Isosorbide MONOnitrate (24 HR) 60 MG TAB.ER.24H PO SCH (08:43)
[2022-03-17] MEDS: Aspirin Enteric Coated 81 MG Tablet PO SCH (08:43)
[2022-03-17] MEDS: Finasteride 5 MG TABLET PO SCH (08:43)
[2022-03-17] MEDS ORDERED: Vancomycin 1,250 MG/262.5 ML IV.SOLN IVPB SCH (11:00)
[2022-03-17] MEDS: Cefepime HCl 1,000 MG in 0.9 % Sodium Chloride 10 ML IVPB SCH ×2 (11:55→20:01)
[2022-03-17] MEDS: Mirtazapine 15 MG TABLET PO SCH (20:01)
[2022-03-18] MEDS ORDERED: Menthol 1 EACH LOZENGE PO PRN (01:09)
[2022-03-18 02:25] LABS: BUN/Creatinine Ratio 10 (6-26); Blood Urea Nitrogen 9 mg/dL (8-23); Calcium 8.8 mg/dL (8.6-10.3); Carbon Dioxide 22 mEq/L (23-29); Chloride 103 mEq/L (98-107); Glucose 171 mg/dL (70-105); Magnesium 1.9 mg/dL (1.6-2.6); Osmolality,Calculated 277 (280-300); Potassium 4.1 mEq/L (3.5-5.1); Sodium 132 mEq/L (136-145); eGFR For African Americans > 60 (> 60); eGFR For Non-African Americans > 60 (> 60)
[2022-03-18] MEDS: Cefepime HCl 1,000 MG in 0.9 % Sodium Chloride 10 ML IVPB SCH (04:59)
[2022-03-18] MEDS: *HR* Heparin 5,000 UNIT/ML VIAL SQ SCH ×2 (05:00→17:48)
[2022-03-18] MEDS: lisinopriL 10 MG TABLET PO SCH (07:26)
[2022-03-18] MEDS: Metoprolol XL (24 HR) Succ 25 MG TAB.ER.24H PO SCH ×2 (07:26→21:45)
[2022-03-18] MEDS: Aspirin Enteric Coated 81 MG Tablet PO SCH (07:26)
[2022-03-18] MEDS: Isosorbide MONOnitrate (24 HR) 60 MG TAB.ER.24H PO SCH (07:26)
[2022-03-18] MEDS: Finasteride 5 MG TABLET PO SCH (07:26)
[2022-03-18] MEDS ORDERED: Fosfomycin Tromethamine 3 GM Packet PO ONE (11:15)
[2022-03-18] MEDS: Mirtazapine 15 MG TABLET PO SCH (21:45)
[2022-03-19] MEDS: *HR* Heparin 5,000 UNIT/ML VIAL SQ SCH (05:46)
[2022-03-19 06:40] VITALS: BP 180/78; PULSE 69; TEMP 97.5; O2SAT 94
[2022-03-19 07:43] LABS: BUN/Creatinine Ratio 13 (6-26); Blood Urea Nitrogen 11 mg/dL (8-23); Calcium 8.8 mg/dL (8.6-10.3); Carbon Dioxide 29 mEq/L (23-29); Chloride 102 mEq/L (98-107); Glucose 84 mg/dL (70-105); Osmolality,Calculated 283 (280-300); Potassium 3.7 mEq/L (3.5-5.1); Sodium 137 mEq/L (136-145); eGFR For African Americans > 60 (> 60); eGFR For Non-African Americans > 60 (> 60)
[2022-03-19] MEDS ORDERED: Magnesium Oxide 400 MG TABLET PO ONE (07:51)
[2022-03-19] MEDS: Metoprolol XL (24 HR) Succ 25 MG TAB.ER.24H PO SCH (08:01)
[2022-03-19] MEDS: Aspirin Enteric Coated 81 MG Tablet PO SCH (08:01)
[2022-03-19] MEDS: lisinopriL 10 MG TABLET PO SCH (08:01)
[2022-03-19] MEDS: Isosorbide MONOnitrate (24 HR) 60 MG TAB.ER.24H PO SCH (08:02)
[2022-03-19] MEDS: Finasteride 5 MG TABLET PO SCH (08:02)
== END 2022-03-19 12:31 | disposition home or self-care (01) | DRG 690 ==
LOC: 3BNU 19:47 → EMEROOARM 19:47 → 3BNU 03-16 11:31
PROVIDERS: ADMIT Internal Medicine; ATTEND Internal Medicine

== ENCOUNTER 2022-03-21 14:28 | Observation (INO) ==
[2022-03-21 16:19] LABS: Basophils % 0.4 %; Eosinophils # 0.1 K/mcL (0.0-0.6); Eosinophils % 0.9 %; Hematocrit 35.6 % (37.5-50.1); Hemoglobin 11.7 g/dL (12.9-16.9); Immature Granulocytes % 0.3 % (0-4); Lymphocytes # 0.9 K/mcL (0.6-4.6); Lymphocytes % 12.6 %; Mean Corpuscular HGB Conc 32.9 g/dL (31.6-35.5); Mean Corpuscular Hemoglobin 28.3 pg (28.0-33.3); Mean Corpuscular Volume 86.2 fL (83.0-100.0); Mean Platelet Volume 9.7 fL (9.4-12.4); Monocytes % 10.8 %; Neutrophils # 5.2 K/mcL (1.6-8.9); Platelet Count 204 K/mcL (140-400); Red Blood Count 4.13 M/mcL (4.19-5.50); Red Cell Distribution Width 13.5 % (11.5-14.5)
[2022-03-21 16:29] LABS: Monocytes # 0.8 K/mcL (0.0-1.3); White Blood Count 6.9 K/mcL (4.3-11.1)
[2022-03-21 16:43] LABS: Alanine Aminotransferase 24 Units/L (7-52); Albumin 3.8 g/dL (3.5-5.7); Albumin/Globulin Ratio 1.5 (1.1-2.2); Alkaline Phosphatase 72 Units/L (34-104); Aspartate Amino Transferase 25 Units/L (13-39); BUN/Creatinine Ratio 12 (6-26); Bilirubin,Direct 0.1 mg/dL (0.0-0.2); Bilirubin,Indirect 0.6 mg/dL (0.0-1.0); Bilirubin,Total 0.7 mg/dL (0.3-1.0); Blood Urea Nitrogen 11 mg/dL (8-23); Calcium 8.7 mg/dL (8.6-10.3); Carbon Dioxide 25 mEq/L (23-29); Chloride 97 mEq/L (98-107); Globulin 2.5 g/dL (2.4-3.5); Glucose 101 mg/dL (70-105); Osmolality,Calculated 270 (280-300); Potassium 3.9 mEq/L (3.5-5.1); Sodium 130 mEq/L (136-145); Total Protein 6.3 g/dL (6.4-8.9); Troponin I < 0.03 ng/mL (< 0.04); eGFR For African Americans > 60 (> 60); eGFR For Non-African Americans > 60 (> 60)
[2022-03-21 17:02] LABS: Bilirubin,Urine Negative (Negative); Blood,Urine Negative (Negative); Clarity,Urine Clear (Clear); Color,Urine Light-Yellow (Yellow); Glucose,Urine (UA) Normal (Normal); Ketones,Urine 10 mg/dL (Negative); Leukocyte Esterase,Urine Negative (Negative); Nitrite,Urine Negative (Negative); PH,Urine 7.5 pH Units (5.0-8.0); Protein,Urine Trace mg/dL (Neg-Trace); Specific Gravity,Urine 1.012 (1.010-1.025); Urobilinogen,Urine Normal (Normal)
[2022-03-21] MEDS ORDERED: Morphine Sulfate 2 MG/ML SYRINGE IVP PRN (20:15)
[2022-03-21 20:34] LABS: Bilirubin,Urine Negative (Negative); Blood,Urine Negative (Negative); Clarity,Urine Clear (Clear); Color,Urine Light-Yellow (Yellow); Glucose,Urine (UA) Normal (Normal); Ketones,Urine Trace mg/dL (Negative); Leukocyte Esterase,Urine Negative (Negative); Nitrite,Urine Negative (Negative); Protein,Urine Negative (Neg-Trace); Urobilinogen,Urine Normal (Normal)
[2022-03-21] MEDS ORDERED: Nitroglycerin 0.4 MG TAB.SUBL SL PRN (21:30)
[2022-03-21] MEDS ORDERED: Naloxone 0.4 MG/ML INJ IVP PRN (21:38)
[2022-03-21] MEDS ORDERED: Acetaminophen 325 MG TABLET PO PRN (21:38)
[2022-03-21] MEDS ORDERED: Ondansetron 4 MG/2 ML VIAL IVP PRN (21:38)
[2022-03-21] MEDS ORDERED: Iopamidol - 370 500 ML MLS IVP ONE (22:31)
[2022-03-22] MEDS ORDERED: *HR* Heparin 5,000 UNIT/ML VIAL SQ SCH (06:00)
[2022-03-22 06:31] LABS: Hematocrit 33.4 % (37.5-50.1); Hemoglobin 11.2 g/dL (12.9-16.9); Mean Corpuscular HGB Conc 33.5 g/dL (31.6-35.5); Mean Corpuscular Hemoglobin 28.7 pg (28.0-33.3); Mean Corpuscular Volume 85.6 fL (83.0-100.0); Platelet Count 199 K/mcL (140-400); Red Cell Distribution Width 13.7 % (11.5-14.5); White Blood Count 4.2 K/mcL (4.3-11.1)
[2022-03-22 06:33] VITALS: BP 148/71; PULSE 66; TEMP 97.6; O2SAT 98
[2022-03-22 06:40] LABS: INR 1.1; Prothrombin Time 11.8 Seconds (9.4-12.1)
[2022-03-22 06:42] LABS: Activated Partial Thrombo Time 30.3 Seconds (26.0-36.0)
[2022-03-22] MEDS ORDERED: Regadenoson 0.4 MG/5 ML SYRINGE IVP ONE ×2 (07:08→11:21)
[2022-03-22 07:51] LABS: BUN/Creatinine Ratio 11 (6-26); Blood Urea Nitrogen 9 mg/dL (8-23); Calcium 8.8 mg/dL (8.6-10.3); Carbon Dioxide 24 mEq/L (23-29); Chloride 101 mEq/L (98-107); Chol/HDL Ratio 3.5 (0-4.9); Cholesterol 154 mg/dL (< 200); Glucose 85 mg/dL (70-105); HDL Cholesterol 44 mg/dL (40-59); LDL Cholesterol,Calculated 93 mg/dL (< 100); Osmolality,Calculated 274 (280-300); Potassium 3.5 mEq/L (3.5-5.1); Sodium 133 mEq/L (136-145); Triglycerides 84 mg/dL (< 150); eGFR For African Americans > 60 (> 60); eGFR For Non-African Americans > 60 (> 60)
[2022-03-22 08:01] LABS: % Iron Saturation 25 % (20-55); Iron 99 mcg/dL (65-175); Transferrin 283 mg/dL (203-362)
[2022-03-22 08:05] LABS: Ferritin 23 ng/mL (20-250)
[2022-03-22 08:12] LABS: Vitamin B12 413 pg/mL (250-1100)
[2022-03-22 08:17] LABS: Folate > 22.3 ng/mL (3.0-16.0)
[2022-03-22] MEDS ORDERED: Finasteride 5 MG TABLET PO SCH (09:00)
[2022-03-22] MEDS ORDERED: lisinopriL 10 MG TABLET PO SCH (09:00)
[2022-03-22] MEDS ORDERED: Aspirin Enteric Coated 81 MG Tablet PO SCH (09:00)
[2022-03-22] MEDS ORDERED: Nystatin Cream 15 GM TUBE TP SCH (09:00)
[2022-03-22 10:47] LABS: Estimated Average Glucose 143 mg/dl; Hemoglobin A1C 6.6 %
[2022-03-22] MEDS ORDERED: Mirtazapine 15 MG TABLET PO SCH (21:00)
== END 2022-03-22 15:55 | disposition home health service (06) ==
LOC: EMEROOARM 14:28 → 3BNU 14:28 → SUATTDRO 19:57 → 3BNU 20:45
PROVIDERS: ADMIT Student in an Organized Health Care Education/Training Program; ATTEND Internal Medicine

== ENCOUNTER 2022-04-27 19:58 | Observation (INO) ==
[2022-04-27] MEDS: Nitroglycerin 0.4 MG TAB.SUBL SL SCH (23:48)
[2022-04-28 00:10] LABS: Potassium 4.1 mEq/L (3.5-5.1)
[2022-04-28] MEDS: Nitroglycerin 0.4 MG TAB.SUBL SL SCH (00:13)
[2022-04-28 00:16] LABS: Troponin I 0.15 ng/mL (< 0.04)
[2022-04-28 00:49] LABS: Basophils % 0.7 %; Eosinophils # 0.2 K/mcL (0.0-0.6); Eosinophils % 3.4 %; Hematocrit 31.9 % (37.5-50.1); Hemoglobin 10.6 g/dL (12.9-16.9); Immature Granulocytes % 0.5 % (0-4); Lymphocytes # 1.3 K/mcL (0.6-4.6); Lymphocytes % 22.7 %; Mean Corpuscular HGB Conc 33.2 g/dL (31.6-35.5); Mean Corpuscular Hemoglobin 28.3 pg (28.0-33.3); Mean Corpuscular Volume 85.3 fL (83.0-100.0); Mean Platelet Volume 10.5 fL (9.4-12.4); Monocytes # 0.6 K/mcL (0.0-1.3); Monocytes % 11.3 %; Neutrophils # 3.5 K/mcL (1.6-8.9); Platelet Count 229 K/mcL (140-400); Red Blood Count 3.74 M/mcL (4.19-5.50); Segmented Neutrophils % 61.4 %; White Blood Count 5.7 K/mcL (4.3-11.1)
[2022-04-28] MEDS ORDERED: *HR* FentaNYL (PF) 100 MCG/2 ML VIAL IVP ONE (01:10)
[2022-04-28] MEDS ORDERED: Acetaminophen 325 MG TABLET PO PRN (01:20)
[2022-04-28] MEDS ORDERED: Melatonin 3 MG TABLET PO PRN (01:20)
[2022-04-28] MEDS ORDERED: Ondansetron ODT 4 MG TAB.RAPDIS SL PRN (01:20)
[2022-04-28] MEDS ORDERED: Naloxone 0.4 MG/ML INJ IVP PRN (01:20)
[2022-04-28] MEDS ORDERED: Nitroglycerin 0.4 MG TAB.SUBL SL PRN (01:22)
[2022-04-28] MEDS ORDERED: Morphine Sulfate 2 MG/ML SYRINGE IVP ONE (01:44)
[2022-04-28] MEDS ORDERED: 0.9 % Sodium Chloride 1,000 ML IVC SCH (02:15)
[2022-04-28 03:13] LABS: Hematocrit 32.3 % (37.5-50.1); Hemoglobin 10.8 g/dL (12.9-16.9); Mean Corpuscular HGB Conc 33.4 g/dL (31.6-35.5); Mean Corpuscular Hemoglobin 28.6 pg (28.0-33.3); Mean Corpuscular Volume 85.4 fL (83.0-100.0); Mean Platelet Volume 10.3 fL (9.4-12.4); Platelet Count 222 K/mcL (140-400); Red Blood Count 3.78 M/mcL (4.19-5.50); Red Cell Distribution Width 13.8 % (11.5-14.5); White Blood Count 4.8 K/mcL (4.3-11.1)
[2022-04-28 03:37] LABS: Calcium 8.8 mg/dL (8.6-10.3); Chol/HDL Ratio 3.1 (0-4.9); Magnesium 1.8 mg/dL (1.6-2.6); Phosphorous 3.5 mg/dL (2.7-4.5); Potassium 3.7 mEq/L (3.5-5.1)
[2022-04-28 04:16] LABS: Thyroid Stimulating Hormone 3.662 mcIU/mL (0.340-5.600)
[2022-04-28 07:20] VITALS: O2SAT 94
[2022-04-28] MEDS ORDERED: *HR* Heparin 5,000 UNIT/ML VIAL IVP ONE (08:02)
[2022-04-28] MEDS ORDERED: *HR* Heparin 5,000 UNIT/ML VIAL IVP PRN ×2 (08:02)
[2022-04-28] MEDS ORDERED: Heparin 25,000UNIT/250ML 1/2NS 25,000 UNIT/250 ML IV.SOLN IVC SCH (08:15)
[2022-04-28] MEDS ORDERED: Aspirin Enteric Coated 81 MG Tablet PO SCH (09:00)
[2022-04-28] MEDS ORDERED: Ranolazine 500 MG TAB.ER.12H PO SCH (09:00)
[2022-04-28 11:01] VITALS: BP 145/75; PULSE 64; TEMP 97.4
== END 2022-04-28 15:10 | disposition home or self-care (01) ==
LOC: 3BNU 19:58 → EMEROOARM 19:58 → SUATTDRO 04-28 01:23 → 3BNU 04-28 01:49
PROVIDERS: ADMIT Internal Medicine; ATTEND Nurse Practitioner